=== PATIENT | male | born 1935 | race American Indian/Alaskan Native ===

== ENCOUNTER 2017-06-26 06:32 | Inpatient (IN) | payer MEDICAID, MEDICARE ==
--- NOTE | 2017-06-26 07:12 | EDM.PDOC ---
ED HPI GENERAL MEDICAL PROBLEM - General Chief Complaint: Respiratory Problem Stated Complaint: [facility] Time Seen by Provider: 06/26/17 07:11 Source of Information: Reports: Patient History Limitations: Reports: No Limitations - History of Present Illness INITIAL COMMENTS - FREE TEXT/NARRATIVE: 82-year-old male presents to the ED per [place] [facility]. 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 At any rate he is steadily febrile with a very congested cough and presented hypoxic with O2 sats in the low 80s. He's been up most of the night. Apparently illness started yesterday with cough and fever. He is chronically anticoagulated because of atrial fibrillation. Rate appears to be controlled in the 60s. Was given albuterol neb treatment by the paramedics en route to the hospital and reports that this did seem to help his breathing and good deal. Onset: Gradual Onset Date: 06/25/17 Duration: Hour(s): Location: Reports: Chest (Chest congestion with fever and hypoxemia.) Quality: Reports: Other Severity: Moderate (Productive sounding cough) Improves with: Reports: Other (Was started on oxygen en route to the hospital but remained only on 89% on 2 L. Bumped to 3 L.) Worsens with: Reports: Breathing, Other Context: Denies: Activity, Exercise (Coughing.), Lifting, Sick Contact, Trauma, Other Associated Symptoms: Reports: Cough, cough w sputum, Fever/Chills, Loss of Appetite, Malaise, Shortness of Breath, Weakness. Denies: Diaphoresis, Headaches, Nausea/Vomiting, Seizure Treatments NEEDLE LOOM OPERATOR: Reports: Other (see below) Other Treatments NEEDLE LOOM OPERATOR: albuterol neb - Related Data Allergies Allergy/AdvReac Type Severity Reaction Status Date / Time No Known Allergies Allergy Verified 06/26/17 06:41 Home Meds: Home Meds Lisinopril 20 mg PO BID 06/15/14 [History] Pravastatin [Pravachol] 80 mg PO BEDTIME 06/15/14 [History] Sertraline [Zoloft] 50 mg PO DAILY 06/15/14 [History] Hydrochlorothiazide 25 mg PO DAILY 12/18/15 [History] Aspirin [Aris Chewable Aspirin] 325 mg PO DAILY #30 tab.chew 12/26/15 [Rx] Carvedilol [Coreg] 3.125 mg PO BID #60 tablet 12/26/15 [Rx] Furosemide [Lasix] 10 mg PO DAILY #30 tablet 12/26/15 [Rx] Apixaban [Eliquis] 2.5 mg PO BID 06/26/17 [History] Warfarin Sodium [Jantoven] 3 mg PO MOWEFR 06/26/17 [History] Warfarin [Coumadin] 2 mg PO SUTUTHSA 06/26/17 [History] amLODIPine [Norvasc] 10 mg PO DAILY 06/26/17 [History] Past Medical History HEENT History: Reports: Impaired Vision, Other (See Below) Other HEENT History: dry eyes Cardiovascular History: Reports: Afib, Heart Failure, High Cholesterol, Hypertension, Other (See Below) Other Cardiovascular History: cardiomegaly, bradycardia Respiratory History: Reports: Other (See Below) Other Respiratory History: positive TB reactor Gastrointestinal History: Reports: Chronic Constipation, Fecal Incontinence Other Gastrointestinal History: used laxitives and was incontinent per Genitourinary History: Reports: Chronic Renal Insuffiency, Retention, Urinary, Urinary Incontinence Other Genitourinary History: ? 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 TB 50+ years ago - Past Surgical History Neurological Surgical History: Reports: Other (See Below) Social & Family History - Family History Family Medical History: Noncontributory - Tobacco Use Smoking Status *Q: Never Smoker Second Hand Smoke Exposure: No - Alcohol Use Days Per Week of Alcohol Use: 0 - Recreational Drug Use Recreational Drug Use: No - Living Situation & Occupation Living situation: Reports: Extended Care Facility Occupation: Retired (Currently residing in [place]) Social History Comment: Currently resides at [facility] with [facility] in [place]. ED ROS GENERAL - Review of Systems Review Of Systems: Unable To Obtain (Unable to obtain with any degree of certainty due to his severe dysarthria secondary to CVA.) Constitutional: Reports: Fever, Chills, Malaise, Weakness, Fatigue ED EXAM, GENERAL - Physical Exam Exam: See Below Exam Limited By: Physical Impairment (Dysarthria secondary to speech impairment after CVA.) General Appearance: Alert, Other (Appears ill and is very warm to palpation.) Eye Exam: Bilateral Eye: Normal Inspection Ears: Normal TMs Throat/Mouth: Other. No: Normal Teeth Head: Atraumatic, Normocephalic Neck: Normal Inspection, Supple, Non-Tender, Full Range of Motion. No: Lymphadenopathy (L), Lymphadenopathy (R) Respiratory/Chest: Respiratory Distress (Moderate tachypnea at rest 20/m. O2 sats of 89% on 2 L. Oxygen was bumped to 3 L/m.), Decreased Breath Sounds ( Decreased breath sounds to the lower 25% of lungs posteriorly.), Rhonchi, Wheezing (Throughout both anterior lungs and posteriorly. Scattered expiratory wheezes.) Cardiovascular: No Gallop (Monitor confirms atrial fibrillation in the 60s primarily.), Irregularly Irregular, Other (Trace edema in lower extremities.). No: Normal Peripheral Pulses Peripheral Pulses: 1+: Posterior Tibial (L), Posterior Tibial (R), Dorsalis Pedis (L), Dorsalis Pedis (R) GI/Abdominal: Normal Bowel Sounds, Soft, Non-Tender, No Organomegaly, No Abnormal Bruit, No Mass Back Exam: Normal Inspection, Decreased Range of Motion (Requires a lot of help just to sit him up.). No: CVA Tenderness (L), CVA Tenderness (R) Extremities: Non-Tender, Pedal Edema Neurological: Alert (1+ pitting edema both lower extremities), Oriented, CN II- XII Intact, Normal Cognition Skin Exam: Warm, Dry, Intact, Normal Color, No Rash Course - Vital Signs Last Recorded V/S: Last Vital Signs Temp 37.8 C 06/26/17 08:57 Pulse 51 L 06/26/17 06:42 Resp 16 06/26/17 06:42 BP 133/50 L 06/26/17 06:42 Pulse Ox 95 06/26/17 07:58 - Orders/Labs/Meds Orders: Active Orders 24 hr Category Date Time Status Admission Status [Patient Status] [ADT] Routine ADT 06/26/17 09:45 Ordered EKG Documentation Completion [RC] STAT Care 06/26/17 06:54 Active Insert Patterson Catheter [Insert Urinary Catheter] [OM.PC] Care 06/26/17 08:45 Ordered Q24H Oxygen Therapy [RC] ASDIRECTED Care 06/26/17 07:11 Active RT Aerosol Therapy [RC] ASDIRECTED Care 06/26/17 07:35 Active Urinary Catheter Assessment [RC] ASDIRECTED Care 06/26/17 08:45 Active Chest 1V Frontal [CR] Stat Exams 06/26/17 06:55 Taken CULTURE BLOOD [BC] Stat Lab 06/26/17 07:30 Received CULTURE BLOOD [BC] Stat Lab 06/26/17 07:55 Received INFLUENZA A+B AG SCREEN [RM] Stat Lab 06/26/17 09:00 Received Blood Culture x2 Reflex Set [OM.PC] Stat Oth 06/26/17 06:54 Ordered Labs: Laboratory Tests 06/26/17 06/26/17 06/26/17 Range/Units 06:54 07:05 07:05 WBC 12.42 H (4.23-9.07) K/mm3 RBC 3.59 L (4.63-6.08) M/mm3 Hgb 11.0 L (13.7-17.5) gm/L Hct 33.9 L (40.1-51.0) % MCV 94.4 H (79.0-92.2) fl MCH 30.6 (25.7-32.2) pg MCHC 32.4 (32.2-35.5) g/dl RDW Std Deviation 45.9 H (35.1-43.9) fL Plt Count 289 (163-337) K/mm3 MPV 10.2 (9.4-12.3) fl Neutrophils % (Manual) 80 H (40-60) % Band Neutrophils % 0 (0-10) % Lymphocytes % (Manual) 15 L (20-40) % Atypical Lymphs % 0 % Monocytes % (Manual) 2 (2-10) % Eosinophils % (Manual) 3 (0.8-7.0) % Basophils % (Manual) 0 L (0.2-1.2) Platelet Estimate Adequate RBC Morph Comment Normal PT 11.4 (8.0-13.0) SECONDS INR 1.04 APTT 33 (22-36) SECONDS D-Dimer, Quantitative 1.29 H (0.19-0.59) mg/L Puncture Site Lt radial ABG pH 7.37 (7.35-7.45) ABG pCO2 41.7 (35.0-45.0) mmHg ABG pO2 65.0 L (80.0-100.0) mmHg ABG HCO3 23.3 (22.0-26.0) meq/L ABG O2 Saturation 92.3 L (96.0-97.0) % ABG Base Excess -1.5 (-2-2.0) A-a Gradient 62 mmHg O2 Delivery Device Nasal cannula Oxygen Flow Rate 3.0 FiO2 28.00 (21.00-100.00) % Sodium (136-145) mEq/L Potassium (3.5-5.1) mEq/L Chloride (98-107) mEq/L Carbon Dioxide (21-32) mEq/L Anion Gap (5-15) BUN (7-18) mg/dL Creatinine (0.7-1.3) mg/dL Est Cr Clr Drug Dosing Estimated GFR (MDRD) (>60) mL/min BUN/Creatinine Ratio (14-18) Glucose (83-115) mg/dL Lactic Acid (0.4-2.0) mmol/L Calcium (8.5-10.1) mg/dL Magnesium (1.8-2.4) mg/dl Total Bilirubin (0.2-1.0) mg/dL AST (15-37) U/L ALT (16-63) U/L Alkaline Phosphatase (46-116) U/L Troponin I (0.00-0.056) ng/mL NT-Pro-B Natriuret Pep (0-450) pg/mL Total Protein (6.4-8.2) g/dl Albumin (3.4-5.0) g/dl Globulin gm/dL Albumin/Globulin Ratio (1-2) Urine Color (Yellow) Urine Appearance (Clear) Urine pH (5.0-8.0) Ur Specific Bill[place] (1.005-1.030) Urine Protein (Negative) Urine Glucose (UA) (Negative) Urine Ketones (Negative) Urine Occult Blood (Negative) Urine Nitrite (Negative) Urine Bilirubin (Negative) Urine Urobilinogen (0.2-1.0) Ur Leukocyte Esterase (Negative) Urine RBC (0-5) /hpf Urine WBC (0-5) /hpf Ur Epithelial Cells (0-5) /hpf Urine Bacteria (FEW) /hpf Urine Mucus (FEW) /hpf 11/10/17 11/10/17 11/10/17 Range/Units 07:05 07:05 07:55 WBC (4.23-9.07) K/mm3 RBC (4.63-6.08) M/mm3 Hgb (13.7-17.5) gm/L Hct (40.1-51.0) % MCV (79.0-92.2) fl MCH (25.7-32.2) pg MCHC (32.2-35.5) g/dl RDW Std Deviation (35.1-43.9) fL Plt Count (163-337) K/mm3 MPV (9.4-12.3) fl Neutrophils % (Manual) (40-60) % Band Neutrophils % (0-10) % Lymphocytes % (Manual) (20-40) % Atypical Lymphs % % Monocytes % (Manual) (2-10) % Eosinophils % (Manual) (0.8-7.0) % Basophils % (Manual) (0.2-1.2) Platelet Estimate RBC Morph Comment PT (8.0-13.0) SECONDS INR APTT (22-36) SECONDS D-Dimer, Quantitative (0.19-0.59) mg/L Puncture Site ABG pH (7.35-7.45) ABG pCO2 (35.0-45.0) mmHg ABG pO2 (80.0-100.0) mmHg ABG HCO3 (22.0-26.0) meq/L ABG O2 Saturation (96.0-97.0) % ABG Base Excess (-2-2.0) A-a Gradient mmHg O2 Delivery Device Oxygen Flow Rate FiO2 (21.00-100.00) % Sodium 146 H (136-145) mEq/L Potassium 3.8 (3.5-5.1) mEq/L Chloride 111 H (98-107) mEq/L Carbon Dioxide 27 (21-32) mEq/L Anion Gap 11.8 (5-15) BUN 31 H (7-18) mg/dL Creatinine 1.4 H (0.7-1.3) mg/dL Est Cr Clr Drug Dosing TNP Estimated GFR (MDRD) 49 (>60) mL/min BUN/Creatinine Ratio 22.1 H (14-18) Glucose 106 (83-115) mg/dL Lactic Acid 1.1 (0.4-2.0) mmol/L Calcium 8.6 (8.5-10.1) mg/dL Magnesium 1.8 (1.8-2.4) mg/dl Total Bilirubin 0.5 (0.2-1.0) mg/dL AST 26 (15-37) U/L ALT 30 (16-63) U/L Alkaline Phosphatase 62 (46-116) U/L Troponin I 0.934 H* (0.00-0.056) ng/mL NT-Pro-B Natriuret Pep 1857 H (0-450) pg/mL Total Protein 7.2 (6.4-8.2) g/dl Albumin 2.7 L (3.4-5.0) g/dl Globulin 4.5 gm/dL Albumin/Globulin Ratio 0.6 L (1-2) Urine Color (Yellow) Urine Appearance (Clear) Urine pH (5.0-8.0) Ur Specific [place] (1.005-1.030) Urine Protein (Negative) Urine Glucose (UA) (Negative) Urine Ketones (Negative) Urine Occult Blood (Negative) Urine Nitrite (Negative) Urine Bilirubin (Negative) Urine Urobilinogen (0.2-1.0) Ur Leukocyte Esterase (Negative) Urine RBC (0-5) /hpf Urine WBC (0-5) /hpf Ur Epithelial Cells (0-5) /hpf Urine Bacteria (FEW) /hpf Urine Mucus (FEW) /hpf 06/26/17 Range/Units 08:50 WBC (4.23-9.07) K/mm3 RBC (4.63-6.08) M/mm3 Hgb (13.7-17.5) gm/L Hct (40.1-51.0) % MCV (79.0-92.2) fl MCH (25.7-32.2) pg MCHC (32.2-35.5) g/dl RDW Std Deviation (35.1-43.9) fL Plt Count (163-337) K/mm3 MPV (9.4-12.3) fl Neutrophils % (Manual) (40-60) % Band Neutrophils % (0-10) % Lymphocytes % (Manual) (20-40) % Atypical Lymphs % % Monocytes % (Manual) (2-10) % Eosinophils % (Manual) (0.8-7.0) % Basophils % (Manual) (0.2-1.2) Platelet Estimate RBC Morph Comment PT (8.0-13.0) SECONDS INR APTT (22-36) SECONDS D-Dimer, Quantitative (0.19-0.59) mg/L Puncture Site ABG pH (7.35-7.45) ABG pCO2 (35.0-45.0) mmHg ABG pO2 (80.0-100.0) mmHg ABG HCO3 (22.0-26.0) meq/L ABG O2 Saturation (96.0-97.0) % ABG Base Excess (-2-2.0) A-a Gradient mmHg O2 Delivery Device Oxygen Flow Rate FiO2 (21.00-100.00) % Sodium (136-145) mEq/L Potassium (3.5-5.1) mEq/L Chloride (98-107) mEq/L Carbon Dioxide (21-32) mEq/L Anion Gap (5-15) BUN (7-18) mg/dL Creatinine (0.7-1.3) mg/dL Est Cr Clr Drug Dosing Estimated GFR (MDRD) (>60) mL/min BUN/Creatinine Ratio (14-18) Glucose (83-115) mg/dL Lactic Acid (0.4-2.0) mmol/L Calcium (8.5-10.1) mg/dL Magnesium (1.8-2.4) mg/dl Total Bilirubin (0.2-1.0) mg/dL AST (15-37) U/L ALT (16-63) U/L Alkaline Phosphatase (46-116) U/L Troponin I (0.00-0.056) ng/mL NT-Pro-B Natriuret Pep (0-450) pg/mL Total Protein (6.4-8.2) g/dl Albumin (3.4-5.0) g/dl Globulin gm/dL Albumin/Globulin Ratio (1-2) Urine Color Yellow (Yellow) Urine Appearance Clear (Clear) Urine pH 5.5 (5.0-8.0) Ur Specific Bill[place] 1.020 (1.005-1.030) Urine Protein 1+ H (Negative) Urine Glucose (UA) Negative (Negative) Urine Ketones Negative (Negative) Urine Occult Blood Negative (Negative) Urine Nitrite Negative (Negative) Urine Bilirubin Negative (Negative) Urine Urobilinogen 0.2 (0.2-1.0) Ur Leukocyte Esterase Negative (Negative) Urine RBC 0-5 (0-5) /hpf Urine WBC 0-5 (0-5) /hpf Ur Epithelial Cells 0-5 (0-5) /hpf Urine Bacteria Few (FEW) /hpf Urine Mucus Not seen (FEW) /hpf Meds: Medications Discontinued Medications Generic Name Dose Route Start Last Admin Trade Name Feliciano PRN Reason Stop Dose Admin Acetaminophen 975 mg 06/26/17 07:15 06/26/17 08:57 Tylenol PO 06/26/17 07:16 975 mg NOW STA Administration Albuterol/Ipratropium 3 ml 06/26/17 07:34 06/26/17 07:56 Duoneb 3.0-0.5 Mg/3 Ml NEB 06/26/17 07:35 3 ml ONETIME ONE Administration Furosemide 40 mg 06/26/17 08:19 06/26/17 08:40 Lasix IVPUSH 06/26/17 08:20 40 mg NOW ONE Administration Levofloxacin/Dextrose 750 mg/ 150 mls @ 100 mls/hr 06/26/17 07:40 06/26/17 08 :44 Premix IV 06/26/17 09:09 100 mls/hr ONETIME ONE Administration - Radiology Interpretation Free Text/Narrative:: 82-year-old male presents to the ED per ambulance from [facility]. Acute onset of fever chills with productive cough apparently over the last 2 days. O2 sats were 82% upon arrival. He is prone to 3 L/m. ABGs revealed a pH of 7.37 with a PCO2 of 41.7 PO2 was less than 65. Plan 1 view chest x-ray portably. "2 bumped to 3 L/m. Labs including blood cultures 2 and lactic acid ordered. Suspect pneumonia. We'll start antibiotics as soon as blood cultures 2 been collected. Will repeat nebulizer treatment by way of DuoNeb. - Re-Assessments/Exams Free Text/Narrative Re-Assessment/Exam: 06/26/17 08:11 portable chest x-ray reveals severe cardiomegaly with diffuse vascular congestion bilaterally. Lab also called over with critical value of a troponin of 0.966. This indicates recent myocardial infarction. His CODE STATUS is DO NOT RESUSCITATE. 06/26/17 08:28 Labs are back. White count is elevated at 12.42 with a left shift of 80% neutrophils and no bands. Hemoglobin is slightly low at 11.0 with hematocrit of 33.9. Platelets 289,000. ABGs revealed a pH of 7.37 with a PCO2 of 41.7 PaO2 of 65 bicarbonate is 23.3 this was on nasal cannula at 3 L/m. Sodium 146 potassium 3.8 chloride 111 bicarbonate 27. Anion gap is 11.8 BUNs 31 creatinine is 1.4 EGFR is 49. Glucose 106 calcium 8.6 magnesium 1.8. Troponin I is elevated at 0.934 suggesting recent myocardial infarction. BNP is elevated at 1857. His CODE STATUS is DO NOT RESUSCITATE. I will give Lasix 40 mg IV at this time. Awaiting urinalysis. 06/26/17 08:39 lactic acid level came back at 1.1. Coags also came back essentially normal with an INR 1.04 suggesting is no longer on Coumadin. His d- dimer is mildly positive at 1.29. Likely elevated due to congestive heart failure. Patient will require admission to the hospital. I'm awaiting a urinalysis to define if this is the source of fever. 06/26/17 08:46 Mr. Hollis reports current temperature is 101.4. She is not yet collected urine by catheterization. 06/26/17 09:30 urinalysis so far is negative. It was obtained by catheterization. Therefore the source of his febrile illness is unclear it may be related to recent myocardial infarction. I will discuss case with oncology nurse navigator hospitalist Dr. Whitten with a view to admission to the hospital for management. Unfortunately the prognosis is extremely guarded due to what appears to be a recent myocardial infarction with congestive heart failure. His CODE STATUS is DO NOT RESUSCITATE. 06/26/17 09:46 spoke with oncology nurse navigator hospitalist Dr. Jasso who has now taken over for Dr. Whitten this morning. Patient will be admitted to the med surgery floor on telemetry. Departure - Departure Time of Disposition: 09:47 Disposition: Admitted As Inpatient 66 Condition: Critical Clinical Impression: Elevated troponin I level, NSTEMI (non-ST elevated myocardial infarction), Hypoxemia, Fever of unknown origin CHF (congestive heart failure), NYHA class III Qualifiers: Congestive heart failure type: diastolic Congestive heart failure chronicity: acute on chronic Qualified Code(s): I50.33 - Acute on chronic diastolic ( congestive) heart failure - Discharge Information Referrals: Joesph Kaba MD [Primary Care Provider] - Forms: ED Department Discharge - My Orders Last 24 Hours: My Active Orders 06/26/17 07:11 Oxygen Therapy [RC] ASDIRECTED 06/26/17 07:35 RT Aerosol Therapy [RC] ASDIRECTED 06/26/17 08:45 Insert Patterson Catheter [Insert Urinary Catheter] [OM.PC] Q24H Urinary Catheter Assessment [RC] ASDIRECTED 06/26/17 09:00 INFLUENZA A+B AG SCREEN [RM] Stat 06/26/17 09:45 Admission Status [Patient Status] [ADT] Routine - Assessment/Plan Last 24 Hours: My Active Orders 06/26/17 07:11 Oxygen Therapy [RC] ASDIRECTED 06/26/17 07:35 RT Aerosol Therapy [RC] ASDIRECTED 06/26/17 08:45 Insert Patterson Catheter [Insert Urinary Catheter] [OM.PC] Q24H Urinary Catheter Assessment [RC] ASDIRECTED 06/26/17 09:00 INFLUENZA A+B AG SCREEN [RM] Stat 06/26/17 09:45 Admission Status [Patient Status] [ADT] Routine
[2017-06-26] MEDS ORDERED: Acetaminophen 325 MG Tab PO STA (07:15)
[2017-06-26] MEDS ORDERED: Albuterol/Ipratropium 3.0-0.5 MG/3 ML Neb Soln NEB ONE (07:34)
[2017-06-26] MEDS ORDERED: Levofloxacin/Dextrose 5%-Water 750 MG in Premix Bag 1 BAG IV ONE (07:40)
[2017-06-26] MEDS ORDERED: Furosemide 40 MG/4 ML VIAL IVPUSH ONE (08:19)
--- NOTE | 2017-06-26 10:16 | CR ---
Chest: Portable view of the chest was obtained. Comparison: Prior chest x-ray of 09/29/16. Heart is mildly enlarged. Mild tortuosity of the thoracic aorta is seen. Lungs are clear. Bony structures are grossly intact. Impression: 1. Mild cardiomegaly. Nothing acute is seen. Diagnostic code #2
--- NOTE | 2017-06-26 15:35 | PCM.HP ---
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 He has marked dysarthria from prior stroke is very difficult to understand. He has been febrile with a congested cough. O2 sats on presentation were in the low 80s. His reported symptoms started yesterday with cough and fever. He is on chronic anticoagulants because of A. fib. Rate appears to be controlled in the 60s. He was provided oxygen and a DuoNeb in route by paramedics. It is reported he started at 2 L with sats only at 89% and was bumped to 3 L. Once in the ED oxygen was continued. Patterson catheter was inserted and it is noted there was some question with urinary retention per discussion with the . Twelve-lead EKG was obtained showing A. fib with a rate of 48-62 bpm. Nonspecific IVCD with LAD. Near Q waves noted in 2 and aVF. Q waves noted in leads 3 T-wave flattening noted in V6 and inverted T-wave in lead 2 and aVL. QTC is 458. Blood cultures were obtained. Influenza A and B screen was obtained and both were negative. DuoNebs were continued. Temperature was reported to be near 101. Pulse was 51. Respirations 16. Blood pressure 133/ 50. Pulse ox 95%. Labs were obtained: He did have a white count at 12.42. Hemoglobin was low at 11 and hematocrit was low at 33.9. He was macrocytic. Platelets were normal at 289,000. Neutrophils were elevated at 80%. There was no bandemia. PT was 11.4. INR 1.04. APTT 33. D-dimer was elevated at 1.29 however this is thought to be the result of his heart failure. ABG was obtained of the left radial. PH was 7.37. PCO2 41.7. PO2 low at 65. Bicarbonate 23.3. O2 saturation low at 92.3. ABG base excess -1.5. A-a gradient was 62. This is on 3 L via nasal cannula. FiO2 was 28. Sodium was slightly elevated at 146. Potassium 3.8. Chloride 111. Carbon dioxide 27. Anion gap 11.8. BUN elevated at 31. Creatinine 1.4. EGFR 49. Glucose was 106. Lactic acid 1.1. Calcium 8.6. Magnesium on the low end of normal at 1.8. Total bilirubin 0.5. Liver enzymes are good with AST at 26, ALT 30, alkaline phosphatase 62. Troponin was elevated at 0.934. ProBNP elevated at 1857. Albumin was low at 2.7. UA was negative. One view chest x-ray was obtained portably. This was interpreted by Dr. Knight as mild cardiomegaly with nothing acute seen. He subsequently admitted to the medical floor on telemetry. CODE STATUS is DNR/ DNI. His primary care provider is Dr. Kaba at [facility]. - Related Data Allergies/Adverse Reactions: Allergies Allergy/AdvReac Type Severity Reaction Status Date / Time No Known Allergies Allergy Verified 06/26/17 06:41 Home Medications: Home Meds Lisinopril 20 mg PO DAILY 06/15/14 [History] Sertraline [Zoloft] 50 mg PO DAILY 06/15/14 [History] Apixaban [Eliquis] 2.5 mg PO BID 06/26/17 [History] Aspirin [Aris Chewable Aspirin] 81 mg PO DAILY 06/26/17 [History] Dextran 70/Hypromellose [Artificial Tears] 1 drop EYEBOTH TID 06/26/17 [History] Furosemide [Lasix] 20 mg PO DAILY 06/26/17 [History] Pravastatin Sodium 80 mg PO BEDTIME 06/26/17 [History] Sennosides [Senna] 8.6 mg PO BID 06/26/17 [History] amLODIPine [Norvasc] 10 mg PO DAILY 06/26/17 [History] Past Medical History HEENT History: Reports: Impaired Vision, Other (See Below) Other HEENT History: dry eyes Cardiovascular History: Reports: Afib, Heart Failure, High Cholesterol, Hypertension, Other (See Below) Other Cardiovascular History: cardiomegaly, bradycardia Respiratory History: Reports: Other (See Below) Other Respiratory History: positive TB reactor Gastrointestinal History: Reports: Chronic Constipation, Fecal Incontinence Other Gastrointestinal History: used laxitives and was incontinent per Genitourinary History: Reports: Chronic Renal Insuffiency, Retention, Urinary, Urinary Incontinence Other Genitourinary History: ? 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 TB 50+ years ago - Past Surgical History Neurological Surgical History: Reports: Other (See Below) Social & Family History - Family History Family Medical History: Noncontributory - Tobacco Use Smoking Status *Q: Never Smoker Second Hand Smoke Exposure: No - Alcohol Use Days Per Week of Alcohol Use: 0 - Recreational Drug Use Recreational Drug Use: No - Living Situation & Occupation Living situation: Reports: Extended Care Facility Occupation: Retired (Currently residing in [place]) H&P Review of Systems - Review of Systems: Review Of Systems: See Below General: Reports: Fever, Chills, Malaise, Weakness, Fatigue HEENT: Reports: Sinus Congestion. Denies: Sore Throat, Vertigo Pulmonary: Reports: Shortness of Breath, Cough, Sputum Cardiovascular: Denies: Chest Pain, Palpitations, Edema Gastrointestinal: Reports: Constipation (chronic ). Denies: Abdominal Pain, Diarrhea, Nausea, Vomiting Genitourinary: Reports: No Symptoms Musculoskeletal: Reports: No Symptoms, Other (Hemiparesis with right side being unusable) Skin: Reports: No Symptoms Psychiatric: Reports: No Symptoms Neurological: Reports: No Symptoms Hematologic/Lymphatic: Reports: No Symptoms Immunologic: Reports: No Symptoms Review of Systems Comment:: Review of systems was very difficult to obtain due to dysarthria secondary to CVA. His did assist with this. Exam - Exam Exam: See Below - Vital Signs Vital Signs: Last Vital Signs Temp 100.0 F 06/26/17 08:57 Pulse 51 L 06/26/17 06:42 Resp 16 06/26/17 06:42 BP 133/50 L 06/26/17 06:42 Pulse Ox 95 06/26/17 07:58 Weight: 221 lb - Exam Quality Assessment: Supplemental Oxygen, DVT Prophylaxis General: Alert, Oriented, Cooperative. No: Mild Distress HEENT: Conjunctiva Clear, EACs Clear, Hearing Intact, Mucosa Moist & [place], Nares Patent, Posterior Pharynx Clear, Pupils Equal, Pupils Reactive Neck: Supple, Trachea Midline. No: Lymphadenopathy, Carotid Bruit, JVD Lungs: Normal Respiratory Effort, Decreased Breath Sounds, Rhonchi, Wheezing ( scattered ) Cardiovascular: Regular Rate, Irregular Rhythm GI/Abdominal Exam: Normal Bowel Sounds, Soft, Non-Tender, No Organomegaly, No Distention, No Abnormal Bruit, No Mass, Pelvis Stable (Male) Exam: Deferred Rectal (Males) Exam: Deferred Back Exam: Normal Inspection, Decreased Range of Motion, Other (leans to right side while sitting up. ) Extremities: Non-Tender, Pedal Edema (1+), Other (Right leg paralysis) Peripheral Pulses: 1+: Radial (L), Radial (R), Posterior Tibial (L), Posterior Tibial (R), Dorsalis Pedis (L), Dorsalis Pedis (R) Skin: Warm, Dry, Intact Neurological: Cranial Nerves Intact (Grossly) Neuro Extensive - Mental Status: Alert, Oriented x3 Neuro Extensive - Motor, Sensory, Reflexes: CN II-XII Intact (Grossly), Abnormal Gait Psychiatric: Alert - Patient Data Result Diagrams: 06/26/17 07:05 06/26/17 07:05 *Q Meaningful Use (ADM) - VTE *Q VTE Criteria *Q: - Stroke *Q Stroke Criteria *Q: - AMI *Q AMI Criteria *Q: - Problem List (1) Fever of unknown origin SNOMED Code(s): 1514048 ICD Code: R50.9 - FEVER, UNSPECIFIED Status: Acute Priority: High Current Visit: Yes (2) CHF (congestive heart failure), NYHA class III SNOMED Code(s): 823521739 ICD Code: I50.9 - HEART FAILURE, UNSPECIFIED Status: Acute Priority: High Current Visit: Yes Qualifiers: Congestive heart failure type: diastolic Congestive heart failure chronicity: acute on chronic Qualified Code(s): I50.33 - Acute on chronic diastolic (congestive) heart failure (3) Elevated d-dimer SNOMED Code(s): 699799739 ICD Code: R79.89 - OTHER SPECIFIED ABNORMAL FINDINGS OF BLOOD CHEMISTRY Status: Acute Priority: High Current Visit: Yes (4) Elevated troponin I level SNOMED Code(s): 566903047 ICD Code: R74.8 - ABNORMAL LEVELS OF OTHER SERUM ENZYMES Status: Chronic Priority: Medium Current Visit: Yes (5) History of CVA with residual deficit SNOMED Code(s): 658210677 ICD Code: I69.30 - UNSPECIFIED SEQUELAE OF CEREBRAL INFARCTION Status: Chronic Priority: Medium Current Visit: Yes (6) History of hemiparesis SNOMED Code(s): 849906594 ICD Code: Z86.69 - PERSONAL HISTORY OF DIS OF THE NERVOUS SYS AND SENSE ORGANS Status: Chronic Priority: Medium Current Visit: Yes (7) History of thrombocytopenia SNOMED Code(s): 722495064 ICD Code: Z86.2 - PRSNL HISTORY OF DIS OF THE BLD/BLD-FORM ORG/IMMUN MECHNSM Status: Chronic Priority: Low Current Visit: Yes (8) CKD (chronic kidney disease) stage 3, GFR 30-59 ml/min SNOMED Code(s): 725293710 ICD Code: N18.3 - CHRONIC KIDNEY DISEASE, STAGE 3 (MODERATE) Status: Chronic Priority: Medium Current Visit: Yes (9) Hypoxemia SNOMED Code(s): 626221106 ICD Code: R09.02 - HYPOXEMIA Status: Acute Current Visit: Yes (10) Atrial fibrillation SNOMED Code(s): 41910609 ICD Code: I48.91 - UNSPECIFIED ATRIAL FIBRILLATION Status: Chronic Priority: Medium Current Visit: Yes Qualifiers: Atrial fibrillation type: chronic Qualified Code(s): I48.2 - Chronic atrial fibrillation (11) Speech and language disorder SNOMED Code(s): 093754960 ICD Code: F80.9 - DEVELOPMENTAL DISORDER OF SPEECH AND LANGUAGE, UNSPECIFIED ; R47.9 - UNSPECIFIED SPEECH DISTURBANCES Status: Chronic Priority: Medium Current Visit: Yes Problem List Initiated/Reviewed/Updated: Yes Orders Last 24hrs: Active Orders 24 hr Category Date Time Status Apixaban Med 06/26/17 21:00 Ordered 2.5 mg PO BID Aspirin Med 06/27/17 09:00 Ordered 81 mg PO DAILY Sertraline [Zoloft] Med 06/27/17 09:00 Ordered 50 mg PO DAILY amLODIPine [Norvasc] Med 06/27/17 09:00 Ordered 10 mg PO DAILY Medication Orders Amlodipine Besylate (Norvasc) 10 mg PO DAILY [facility] Aspirin (Aspirin) 81 mg PO DAILY [facility] Non-Formulary Medication (Apixaban) 2.5 mg PO BID [facility] Sertraline HCl (Zoloft) 50 mg PO DAILY [facility] Assessment/Plan Comment:: I/P: Acute: Fever of unknown origin - Bronchitis vs. early pneumonia -Reportedly up to 101 in ED and at SNF -Hypoxic with oxygen saturations in low 80's at SNF -On 3L O2 in ED. Not on home O2. -Pt. hx/o CVA with hemiparesis - risk factor due to decreased mobility -Urinary incontinent with questions of possible urinary retention -Straight cathed in ED, has had frequent episodes of incontinence here - risk for UTI -UA negative in ED -CXR interpeted by Dr. Knight shows nothing acute. -Cough w sputum -Chest congestion per pt. -Negative influenza A and B in ED -Lactic acid 1.1 -Blood cultures obtained -WBC 12.42 -Neutorphils 80% -No bandemia -Levaquin 750 started in ED will continue 500mg q24hrs -Consider f/u chest x-ray in 24-48 hours depending on symptoms -Duonebs -O2 as ordered -RT evaluate and treat -Sputum culture ordered -Mycoplasma pneumonia ordered Elevated troponin -HR in 40's at times -A-Fib chronically and on Eliquis and ASA -0.934 at 0705 in ED today -Reviewed old chart - hx/o elevated troponins -0.987 on 09/29/16 at 1500 -0.991 on 09/29/16 at 1304 -0.808 on 12/20/15 at 0639 -1.005 on 12/18/15 at 2000 -1.031 on 12/18/15 at 1317 -0.638 on 06/18/17 at 605 -On last visit pt. was transfered to [place] for observation due to elevated trop. and bradycardia with HR in 40's -Patient does not want aggressive treatment, in ED was requesting to return home. States he is ready to . -Will order repeat troponin, CK-MB -Suspect chronic troponin leak from CHF and CKD Elevated D-Dimer -Hx/o A-fib -On Eliquis and ASA -Risk factors: sedimentary due to hemiparesis and A-Fib -PT 11.4 -INR 1.04 -APTT 33 -D-Dimer 1.29 in ED -I discussed this with the patient and his . I explained how this may be due to the patient having a blood clot in his lungs, or it may be a false positive due to his other co-morbid conditions. I explained the testing that would be needed including CT angiogram or VQ scan. The patient states he would not like aggressive treatment and refuses further investigation. His agrees as well. -Suspect elevated D-Dimer due to CHF CHF -Acute on chronic -SOB -Pro-BNP 1857 -40mg lasix given in ed -Patient on 20 mg lasix daily home med -Will hold ACEI and Lasix, give Bumex 0.5mg BID to diuresis -Monitor kidney function -Reports last echo was preformed when he was in [place] earlier this year - attempt to obtain Chronic: CKD, Stage III -Appears stable from prior visits -BUN 31 -Creatinine 1.4 -eGFR 49 -Monitor daily labs as we are attempting to diuresis HTN - stable HLD - hold statin A-fib on Eliquis Bradycardia Cardiomegaly Chronic constipation Fecal incontinence Urinary retention Urinary incontinence Hemiparesis - right side Hx/o CVA with marked dysarthria Depression Vitamin D deficiency Idiopathic Thrombocytopenia Plan: CM/SW for discharge planning PT/OT HAND SPRAYER swallow evaluation Routine AM labs Other orders as indicated above GI prophylaxis - pepcid DVE/PE prophylaxis - RUMA Dunn, Pt. on Eliquis and ASA. He is a high fall risk Code status: DNR/DNI. His PCP is Dr. Kaba at [facility] in [place].
[2017-06-26] MEDS ORDERED: Temazepam 15 MG Cap PO PRN (17:02)
[2017-06-26] MEDS ORDERED: Polyethylene Glycol 3350 Powder 17 GM Packet PO PRN (17:02)
[2017-06-26] MEDS ORDERED: Acetaminophen 325 MG Tab PO PRN (17:02)
[2017-06-26] MEDS ORDERED: Albuterol/Ipratropium 3.0-0.5 MG/3 ML Neb Soln NEB PRN (17:02)
[2017-06-26] MEDS ORDERED: Acetaminophen/HYDROcodone 325-5 MG Tab PO PRN (17:02)
[2017-06-26] MEDS ORDERED: Ondansetron 4 MG Tab.DIS PO PRN (17:02)
[2017-06-26] MEDS ORDERED: Docusate Sodium 100 MG Cap PO PRN (17:02)
[2017-06-26] MEDS ORDERED: Ondansetron 4 MG/2 ML SDV IV PRN (17:02)
[2017-06-26] MEDS: Famotidine 20 MG Tab PO SCH (17:51)
[2017-06-26] MEDS ORDERED: Bumetanide 1 MG/4 ML MDV IVPUSH ONE (18:45)
[2017-06-26] MEDS ORDERED: Bumetanide 1 MG/4 ML MDV IVPUSH SCH (21:00)
[2017-06-26] MEDS: Hypromellose 0.5% Ophth Soln 15 ML Bottle EYEBOTH SCH (21:45)
[2017-06-26] MEDS: Apixaban 5 MG Tab PO SCH (21:45)
--- NOTE | 2017-06-27 07:50 | PCM.PN ---
- General Info Date of Service: 06/27/17 Admission Dx/Problem (Free Text): Admission Diagnosis/Problem Admission Diagnosis/Problem NSTEMI, initial episode of care Subjective Update: Follow Up Functional Status: Reports: Pain Controlled, Tolerating Diet, Ambulating, Urinating. Denies: New Symptoms - Review of Systems General: Denies: Fever, Chills HEENT: Reports: No Symptoms Pulmonary: Denies: Shortness of Breath Cardiovascular: Denies: Chest Pain Gastrointestinal: Denies: Abdominal Pain, Nausea, Vomiting Genitourinary: Reports: No Symptoms Musculoskeletal: Reports: No Symptoms Skin: Reports: Cyanosis Neurological: Reports: Pre-Existing Deficit, Trouble Speaking, Difficulty Walking, Weakness, Gait Disturbance. Denies: Confusion Psychiatric: Denies: Depression, Anxiety, Agitation, Hallucinations Systems Review Comment:: NO significant overnight or acute issues. He feels better this morning. He has no new complaints. However he wants something but hsa difficulty relaying to us. He has baseline dysarthria. - Patient Data Vitals - Most Recent: Last Vital Signs Temp 36.8 C 06/27/17 07:18 Pulse 56 L 06/27/17 07:18 Resp 16 06/27/17 07:18 BP 120/53 L 06/27/17 07:18 Pulse Ox 93 L 06/27/17 07:18 Weight - Most Recent: 102.376 kg I&O - Last 24 Hours: Intake & Output 06/26/17 06/27/17 06/27/17 22:59 06:59 14:59 Intake Total 480 300 Balance 480 300 Lab Results Last 24 Hours: Laboratory Results - last 24 hr 06/26/17 06/26/17 06/27/17 Range/Units 16:07 17:50 06:26 WBC 11.73 H (4.23-9.07) K/mm3 RBC 3.59 L (4.63-6.08) M/mm3 Hgb 10.9 L (13.7-17.5) gm/L Hct 33.8 L (40.1-51.0) % MCV 94.2 H (79.0-92.2) fl MCH 30.4 (25.7-32.2) pg MCHC 32.2 (32.2-35.5) g/dl RDW Std Deviation 45.7 H (35.1-43.9) fL Plt Count 216 (163-337) K/mm3 MPV 10.7 (9.4-12.3) fl Neut % (Auto) 81.3 H (34.0-67.9) % Lymph % (Auto) 9.5 L (21.8-53.1) % [place]ckett % (Auto) 7.8 (5.3-12.2) % Eos % (Auto) 1.0 (0.8-7.0) Baso % (Auto) 0.2 (0.1-1.2) % Neut # (Auto) 9.54 H (1.78-5.38) K/mm3 Lymph # (Auto) 1.12 L (1.32-3.57) K/mm3 [place] # (Auto) 0.91 H (0.30-0.82) K/mm3 Eos # (Auto) 0.12 (0.04-0.54) K/mm3 Baso # (Auto) 0.02 (0.01-0.08) K/mm3 Manual Slide Review Normal smear Sodium (136-145) mEq/L Potassium (3.5-5.1) mEq/L Chloride (98-107) mEq/L Carbon Dioxide (21-32) mEq/L Anion Gap (5-15) BUN (7-18) mg/dL Creatinine (0.7-1.3) mg/dL Est Cr Clr Drug Dosing mL/min Estimated GFR (MDRD) (>60) mL/min BUN/Creatinine Ratio (14-18) Glucose (83-115) mg/dL Calcium (8.5-10.1) mg/dL Magnesium (1.8-2.4) mg/dl CK-MB (CK-2) 1.2 (0-3.6) ng/ml Troponin I 0.904 H* (0.00-0.056) ng/mL NT-Pro-B Natriuret Pep 1778 H (0-450) pg/mL MRSA (PCR) Negative 06/27/17 Range/Units 06:26 WBC (4.23-9.07) K/mm3 RBC (4.63-6.08) M/mm3 Hgb (13.7-17.5) gm/L Hct (40.1-51.0) % MCV (79.0-92.2) fl MCH (25.7-32.2) pg MCHC (32.2-35.5) g/dl RDW Std Deviation (35.1-43.9) fL Plt Count (163-337) K/mm3 MPV (9.4-12.3) fl Neut % (Auto) (34.0-67.9) % Lymph % (Auto) (21.8-53.1) % [place] % (Auto) (5.3-12.2) % Eos % (Auto) (0.8-7.0) Baso % (Auto) (0.1-1.2) % Neut # (Auto) (1.78-5.38) K/mm3 Lymph # (Auto) (1.32-3.57) K/mm3 [place] # (Auto) (0.30-0.82) K/mm3 Eos # (Auto) (0.04-0.54) K/mm3 Baso # (Auto) (0.01-0.08) K/mm3 Manual Slide Review Sodium 145 (136-145) mEq/L Potassium 3.8 (3.5-5.1) mEq/L Chloride 107 (98-107) mEq/L Carbon Dioxide 28 (21-32) mEq/L Anion Gap 13.8 (5-15) BUN 32 H (7-18) mg/dL Creatinine 1.5 H (0.7-1.3) mg/dL Est Cr Clr Drug Dosing 42.91 mL/min Estimated GFR (MDRD) 45 (>60) mL/min BUN/Creatinine Ratio 0.0 L (14-18) Glucose 93 (83-115) mg/dL Calcium 8.5 (8.5-10.1) mg/dL Magnesium 1.6 L (1.8-2.4) mg/dl CK-MB (CK-2) (0-3.6) ng/ml Troponin I (0.00-0.056) ng/mL NT-Pro-B Natriuret Pep (0-450) pg/mL MRSA (PCR) Stewart Results Last 24 Hours: Microbiology 06/26/17 18:40 Gram Stain - Final Sputum - Expectorated Med Orders - Current: Current Medications Acetaminophen (Tylenol) 650 mg PO Q4H PRN PRN Reason: Pain (Mild 1-3)/fever Hydrocodone Bitart/Acetaminophen ([place] 325-5 Mg) 1 tab PO Q4H PRN PRN Reason: Pain (moderate 4-6) Albuterol/Ipratropium (Duoneb 3.0-0.5 Mg/3 Ml) 3 ml NEB Q4H PRN PRN Reason: Shortness Of Breath/wheezing Amlodipine Besylate (Norvasc) 10 mg PO DAILY [facility] Apixaban (Eliquis) 2.5 mg PO BID [facility] Last Admin: 06/26/17 21:45 Dose: 2.5 mg Artificial Tears (Isopto Tears 0.5% Ophth Soln) 0 ml EYEBOTH TID [facility] Last Admin: 06/26/17 21:45 Dose: 1 drop Aspirin (Aspirin) 81 mg PO DAILY [facility] Bumetanide (Bumex) 0.5 mg IVPUSH BID [facility] Docusate Sodium (Colace) 100 mg PO BID PRN PRN Reason: Constipation Famotidine (Pepcid) 20 mg PO DAILY [facility] Last Admin: 06/26/17 17:51 Dose: 20 mg Levofloxacin/Dextrose 500 mg/ (Premix) 100 mls @ 100 mls/hr IV Q24H [facility] Magnesium Hydroxide (Milk Of Magnesia) 30 ml PO Q12H PRN PRN Reason: Constipation Ondansetron HCl (Zofran Odt) 4 mg PO Q6H PRN PRN Reason: nausea, able to take PO Ondansetron HCl (Zofran) 4 mg IV Q6H PRN PRN Reason: Nausea/Vomiting Polyethylene Glycol (Miralax) 17 gm PO DAILY PRN PRN Reason: Constipation Senna/Docusate Sodium (Senna Plus) 1 tab PO BID PRN PRN Reason: Constipation Sertraline HCl (Zoloft) 50 mg PO DAILY [facility] Temazepam (Restoril) 15 mg PO BEDTIME PRN PRN Reason: Sleep Discontinued Medications Acetaminophen (Tylenol) 975 mg PO NOW STA Stop: 06/26/17 07:16 Last Admin: 06/26/17 08:57 Dose: 975 mg Albuterol/Ipratropium (Duoneb 3.0-0.5 Mg/3 Ml) 3 ml NEB ONETIME ONE Stop: 06/26/17 07:35 Last Admin: 06/26/17 07:56 Dose: 3 ml Bumetanide (Bumex) 0.5 mg IVPUSH BID [facility] Bumetanide (Bumex) 0.5 mg IVPUSH ONETIME ONE Stop: 06/26/17 18:46 Last Admin: 06/26/17 21:45 Dose: 0.5 mg Furosemide (Lasix) 40 mg IVPUSH NOW ONE Stop: 06/26/17 08:20 Last Admin: 06/26/17 08:40 Dose: 40 mg Levofloxacin/Dextrose 750 mg/ (Premix) 150 mls @ 100 mls/hr IV ONETIME ONE Stop: 06/26/17 09:09 Last Admin: 06/26/17 08:44 Dose: 100 mls/hr - Exam General: Alert, Oriented, Cooperative, No Acute Distress, Other (Dysarthria) HEENT: Pupils Equal, Pupils Reactive, EOMI, Mucous Membr. Moist/[place] Neck: Supple, Trachea Midline, No JVD Lungs: Normal Respiratory Effort, Decreased Breath Sounds Cardiovascular: Irregular Rhythm GI/Abdominal Exam: Normal Bowel Sounds, Soft, Non-Tender, No Organomegaly, No Distention (Male) Exam: Deferred Back Exam: Normal Inspection, Decreased Range of Motion Extremities: Normal Inspection, Normal Range of Motion, Non-Tender, Pedal Edema Peripheral Pulses: 1+: Dorsalis Pedis (L), Dorsalis Pedis (R) Skin: Warm, Dry, Intact Neurological: No New Focal Deficit. No: Normal Gait, Strength Equal Bilateral, Sensation Intact Psy/Mental Status: Alert, Normal Affect, Normal Mood. No: Anxious, Suicidal Ideation, Hallucinations - Problem List Review Problem List Initiated/Reviewed/Updated: Yes - My Orders Last 24 Hours: My Active Orders 06/26/17 21:00 Hypromellose [Isopto Tears 0.5% Ophth Soln] 0 ml EYEBOTH TID 06/26/17 Dinner Soft Diet [DIET] 06/27/17 07:49 CRP [C-REACTIVE PROTEIN] [CHEM] Urgent 06/28/17 05:11 CRP [C-REACTIVE PROTEIN] [CHEM] AM 06/29/17 05:11 CRP [C-REACTIVE PROTEIN] [CHEM] AM 06/30/17 05:11 CRP [C-REACTIVE PROTEIN] [CHEM] AM 07/01/17 05:11 CRP [C-REACTIVE PROTEIN] [CHEM] AM - Plan Plan:: Assessment/Plan: Acute: Fever likely 2/2 Bronchitis vs. Early Pneumonia - Reportedly up to 101 in ED and at SNF - Hypoxic with oxygen saturations in low 80's at SNF; cough with sputum and chest congestion - On 3L O2 in ED. Not on home O2. - Pt. hx/o CVA with hemiparesis - risk factor due to decreased mobility - Urinary incontinent with questions of possible urinary retention; UA negative - Straight cathed in ED, has had frequent episodes of incontinence here - risk for UTI - CXR interpeted by Dr. Knight shows nothing acute. - Lactic acid 1.1 - WBC 12.42 --> 11.73; CRP 12.3 - Neutorphils 80%; No bandemia - Continue Levaquin 750 mg IV daily, Duonebs, O2 as ordered, and RT evaluate/ treat - Sputum: Gram stain negative, awaiting culture - Mycoplasma pneumonia/Blood Culture and Influenza screening negative Elevated D-Dimer - Hx/o A-fib; On Eliquis and ASA - Risk factors: sedimentary due to hemiparesis and A-Fib - PT 11.4/INR 1.04/APTT 33 - D-Dimer 1.29 in ED - I discussed this with the patient and his . I explained how this may be due to the patient having a blood clot in his lungs, or it may be a false positive due to his other co-morbid conditions. I explained the testing that would be needed including CT angiogram or VQ scan. The patient states he would not like aggressive treatment and refuses further investigation. His agrees as well. - Suspect elevated D-Dimer due to CHF CHF - Acute on chronic; with Preserved EF 57% 12/19/2015-awaiting most recent report from [facility] - SOB - Pro-BNP 1857 --> now 1477 - 40 mg lasix given in ED; resume home dose lasix/acei - Heart healthy diet and 2 Gram Sodium daily restriction - Monitor kidney function Chronic: Elevated Troponin, - This is chronic to him - HR in 40's at times - A-Fib chronically and on Eliquis and ASA - 0.934 at 0705 in ED today - Reviewed old chart - hx/o elevated troponins -0.987 on 09/29/16 at 1500 -0.991 on 09/29/16 at 1304 -0.808 on 12/20/15 at 0639 -1.005 on 12/18/15 at 2000 -1.031 on 12/18/15 at 1317 -0.638 on 06/18/17 at 605 - On last visit pt. was transfered to [place] for observation due to elevated trop. and bradycardia with HR in 40's - Patient does not want aggressive treatment, in ED was requesting to return home. States he is ready to . - Will order repeat troponin, CK-MB - Suspect chronic troponin leak from CHF and CKD CKD, Stage III, At baseline - Appears stable from prior visits - BUN 31 - Creatinine 1.4 - eGFR 49 - Monitor daily labs as we are attempting to diuresis HTN - stable HLD - hold statin A-fib on Eliquis Bradycardia Cardiomegaly Chronic constipation Fecal incontinence Urinary retention Urinary incontinence Hemiparesis - right side Hx/o CVA with marked dysarthria Depression Vitamin D deficiency Idiopathic Thrombocytopenia Plan: He is clinically better this am Continue current treatment Continue PT/OT PRINCIPAL ASSOCIATE swallow evaluation hx/o dysarthria Routine AM labs Other orders as indicated above CM/SW for discharge planning GI prophylaxis: H2B DVE/PE prophylaxis: On Eliquis and ASA He is a high fall risk Code status: DNR/DNI His PCP is Dr. Kaba at [facility] in [place]
[2017-06-27] MEDS ORDERED: Metoprolol Tartrate 5 MG/5 ML SDV IVPUSH PRN (08:36)
[2017-06-27] MEDS ORDERED: hydrALAZINE 20 MG/ML SDV IVPUSH PRN (08:36)
[2017-06-27] MEDS ORDERED: Benzonatate 100 MG Cap PO PRN (08:38)
[2017-06-27] MEDS ORDERED: Bisacodyl 10 MG Supp RECTAL PRN (08:39)
[2017-06-27] MEDS ORDERED: Bumetanide 1 MG/4 ML MDV IVPUSH SCH (09:00)
[2017-06-27] MEDS ORDERED: Magnesium Sulfate/Water 2 GM in Premix Bag 1 BAG IV ONE (09:00)
[2017-06-27] MEDS: amLODIPine 10 MG Tab PO SCH (09:08)
[2017-06-27] MEDS: Magnesium Hydroxide 400 MG/5 ML Susp 30 ML Cup PO PRN (09:08)
[2017-06-27] MEDS: Famotidine 20 MG Tab PO SCH (09:08)
[2017-06-27] MEDS: Apixaban 5 MG Tab PO SCH ×2 (09:08→20:20)
[2017-06-27] MEDS: Aspirin 81 MG Tab.Chew PO SCH (09:08)
[2017-06-27] MEDS: Sertraline 50 MG Tab PO SCH (09:09)
[2017-06-27] MEDS: Hypromellose 0.5% Ophth Soln 15 ML Bottle EYEBOTH SCH ×3 (09:09→20:20)
[2017-06-27] MEDS ORDERED: Levofloxacin/Dextrose 5%-Water 500 MG in Premix Bag 1 BAG IV SCH (10:00)
[2017-06-27] MEDS ORDERED: Levofloxacin/Dextrose 5%-Water 250 MG in Premix Bag 1 BAG IV ONE (12:44)
[2017-06-27] MEDS: Hydrochlorothiazide 12.5 MG Cap PO SCH (20:20)
[2017-06-27] MEDS: Pravastatin Sodium 80 MG PO SCH (20:21)
[2017-06-28] MEDS: Hydrochlorothiazide 12.5 MG Cap PO SCH ×2 (05:48→13:56)
[2017-06-28] MEDS: Magnesium Hydroxide 400 MG/5 ML Susp 30 ML Cup PO PRN (06:47)
--- NOTE | 2017-06-28 07:17 | PCM.PN ---
- General Info Date of Service: 06/28/17 Admission Dx/Problem (Free Text): Admission Diagnosis/Problem Admission Diagnosis/Problem NSTEMI, initial episode of care Subjective Update: Follow Up Functional Status: Reports: Pain Controlled, Tolerating Diet, Urinating. Denies : New Symptoms - Review of Systems General: Reports: Other ([place] hemepareis and dysarthria). Denies: Fever, Chills HEENT: Reports: No Symptoms Pulmonary: Denies: Shortness of Breath Cardiovascular: Denies: Chest Pain Gastrointestinal: Reports: Constipation. Denies: Abdominal Pain, Nausea, Vomiting Genitourinary: Reports: No Symptoms Musculoskeletal: Reports: No Symptoms Skin: Denies: Cyanosis, Pallor, Diaphoresis, Rash Neurological: Reports: Difficulty Walking, Gait Disturbance. Denies: Confusion , Weakness Psychiatric: Denies: Depression, Anxiety, Agitation, Hallucinations Systems Review Comment:: No significant overnight or acute issues. He slept good. He still has not had a bowel movement. His cough is better. He has no new complaints. - Patient Data Vitals - Most Recent: Last Vital Signs Temp 36.9 C 06/27/17 20:11 Pulse 51 L 06/27/17 20:11 Resp 15 06/27/17 20:11 BP 135/54 L 06/27/17 20:11 Pulse Ox 94 L 06/27/17 20:11 Weight - Most Recent: 102.013 kg I&O - Last 24 Hours: Intake & Output 06/27/17 06/28/17 06/28/17 22:59 06:59 14:59 Intake Total 60 600 Balance 60 600 Lab Results Last 24 Hours: Laboratory Results - last 24 hr 06/27/17 06/27/17 06/28/17 Range/Units 06:26 06:26 06:02 WBC 10.60 H (4.23-9.07) K/mm3 RBC 3.69 L (4.63-6.08) M/mm3 Hgb 11.0 L (13.7-17.5) gm/L Hct 34.6 L (40.1-51.0) % MCV 93.8 H (79.0-92.2) fl MCH 29.8 (25.7-32.2) pg MCHC 31.8 L (32.2-35.5) g/dl RDW Std Deviation 45.4 H (35.1-43.9) fL Plt Count 243 (163-337) K/mm3 MPV 10.6 (9.4-12.3) fl Neut % (Auto) 77.7 H (34.0-67.9) % Lymph % (Auto) 11.8 L (21.8-53.1) % [place] % (Auto) 8.6 (5.3-12.2) % Eos % (Auto) 1.5 (0.8-7.0) Baso % (Auto) 0.2 (0.1-1.2) % Neut # (Auto) 8.24 H (1.78-5.38) K/mm3 Lymph # (Auto) 1.25 L (1.32-3.57) K/mm3 [place] # (Auto) 0.91 H (0.30-0.82) K/mm3 Eos # (Auto) 0.16 (0.04-0.54) K/mm3 Baso # (Auto) 0.02 (0.01-0.08) K/mm3 Sodium (136-145) mEq/L Potassium (3.5-5.1) mEq/L Chloride (98-107) mEq/L Carbon Dioxide (21-32) mEq/L Anion Gap (5-15) BUN (7-18) mg/dL Creatinine (0.7-1.3) mg/dL Est Cr Clr Drug Dosing mL/min Estimated GFR (MDRD) (>60) mL/min BUN/Creatinine Ratio (14-18) Glucose (83-115) mg/dL Calcium (8.5-10.1) mg/dL Magnesium (1.8-2.4) mg/dl C-Reactive Protein 12.3 H* (<1.0) mg/dL NT-Pro-B Natriuret Pep 1477 H (0-450) pg/mL 06/28/17 Range/Units 06:02 WBC (4.23-9.07) K/mm3 RBC (4.63-6.08) M/mm3 Hgb (13.7-17.5) gm/L Hct (40.1-51.0) % MCV (79.0-92.2) fl MCH (25.7-32.2) pg MCHC (32.2-35.5) g/dl RDW Std Deviation (35.1-43.9) fL Plt Count (163-337) K/mm3 MPV (9.4-12.3) fl Neut % (Auto) (34.0-67.9) % Lymph % (Auto) (21.8-53.1) % [place] % (Auto) (5.3-12.2) % Eos % (Auto) (0.8-7.0) Baso % (Auto) (0.1-1.2) % Neut # (Auto) (1.78-5.38) K/mm3 Lymph # (Auto) (1.32-3.57) K/mm3 [place] # (Auto) (0.30-0.82) K/mm3 Eos # (Auto) (0.04-0.54) K/mm3 Baso # (Auto) (0.01-0.08) K/mm3 Sodium 144 (136-145) mEq/L Potassium 3.9 (3.5-5.1) mEq/L Chloride 107 (98-107) mEq/L Carbon Dioxide 28 (21-32) mEq/L Anion Gap 12.9 (5-15) BUN 33 H (7-18) mg/dL Creatinine 1.4 H (0.7-1.3) mg/dL Est Cr Clr Drug Dosing 45.97 mL/min Estimated GFR (MDRD) 49 (>60) mL/min BUN/Creatinine Ratio 23.6 H (14-18) Glucose 92 (83-115) mg/dL Calcium 8.8 (8.5-10.1) mg/dL Magnesium 2.2 (1.8-2.4) mg/dl C-Reactive Protein 12.6 H* (<1.0) mg/dL NT-Pro-B Natriuret Pep (0-450) pg/mL [place] Results Last 24 Hours: Microbiology 06/26/17 18:40 Gram Stain - Final Sputum - Expectorated Sputum Culture - Preliminary Med Orders - Current: Current Medications Acetaminophen (Tylenol) 650 mg PO Q4H PRN PRN Reason: Pain (Mild 1-3)/fever Hydrocodone Bitart/Acetaminophen ([place] 325-5 Mg) 1 tab PO Q4H PRN PRN Reason: Pain (moderate 4-6) Albuterol/Ipratropium (Duoneb 3.0-0.5 Mg/3 Ml) 3 ml NEB Q4H PRN PRN Reason: Shortness Of Breath/wheezing Amlodipine Besylate (Norvasc) 10 mg PO DAILY [facility] Last Admin: 06/27/17 09:08 Dose: 10 mg Apixaban (Eliquis) 2.5 mg PO BID [facility] Last Admin: 06/27/17 20:20 Dose: 2.5 mg Artificial Tears (Isopto Tears 0.5% Ophth Soln) 0 ml EYEBOTH TID [facility] Last Admin: 06/27/17 20:20 Dose: 1 drop Aspirin (Aspirin) 81 mg PO DAILY [facility] Last Admin: 06/27/17 09:08 Dose: 81 mg Benzonatate (Tessalon Perles) 100 mg PO TID PRN PRN Reason: Cough Last Admin: 06/27/17 09:08 Dose: 100 mg Bisacodyl (Dulcolax) 10 mg RECTAL DAILY PRN PRN Reason: Constipation Docusate Sodium (Colace) 100 mg PO BID PRN PRN Reason: Constipation Famotidine (Pepcid) 20 mg PO DAILY [facility] Last Admin: 06/27/17 09:08 Dose: 20 mg Furosemide (Lasix) 20 mg PO DAILY [facility] Hydralazine HCl (Apresoline) 10 mg IVPUSH Q4H PRN PRN Reason: Hypertension Hydrochlorothiazide (Hydrochlorothiazide) 12.5 mg PO BIDDIURETIC [facility] Last Admin: 06/28/17 05:48 Dose: 12.5 mg Levofloxacin/Dextrose 750 mg/ (Premix) 150 mls @ 100 mls/hr IV Q24H [facility] Lisinopril (Prinivil) 20 mg PO DAILY [facility] Magnesium Hydroxide (Milk Of Magnesia) 30 ml PO Q12H PRN PRN Reason: Constipation Last Admin: 06/28/17 06:47 Dose: 30 ml Magnesium Sulfate (Pharmacy To Dose - Magnesium Replacement) 0 dose .XX ASDIRECTED PRN PRN Reason: RX TO WATCH MAG LEVELS Metoprolol Tartrate (Lopressor) 5 mg IVPUSH Q4H PRN PRN Reason: Tachycardia Ondansetron HCl (Zofran Odt) 4 mg PO Q6H PRN PRN Reason: nausea, able to take PO Ondansetron HCl (Zofran) 4 mg IV Q6H PRN PRN Reason: Nausea/Vomiting Pravastatin Sodium (80 Mg) 0 each PO BEDTIME [facility] Last Admin: 06/27/17 20:21 Dose: Not Given Polyethylene Glycol (Miralax) 17 gm PO DAILY PRN PRN Reason: Constipation Last Admin: 06/28/17 06:46 Dose: 17 gm Potassium Chloride (Pharmacy To Dose - Potassium Replacement) 0 dose .XX ASDIRECTED PRN PRN Reason: RX TO WATCH K LEVELS Senna/Docusate Sodium (Senna Plus) 1 tab PO BID PRN PRN Reason: Constipation Sertraline HCl (Zoloft) 50 mg PO DAILY [facility] Last Admin: 06/27/17 09:09 Dose: 50 mg Temazepam (Restoril) 15 mg PO BEDTIME PRN PRN Reason: Sleep Discontinued Medications Acetaminophen (Tylenol) 975 mg PO NOW STA Stop: 06/26/17 07:16 Last Admin: 06/26/17 08:57 Dose: 975 mg Albuterol/Ipratropium (Duoneb 3.0-0.5 Mg/3 Ml) 3 ml NEB ONETIME ONE Stop: 06/26/17 07:35 Last Admin: 06/26/17 07:56 Dose: 3 ml Bumetanide (Bumex) 0.5 mg IVPUSH BID [facility] Bumetanide (Bumex) 0.5 mg IVPUSH ONETIME ONE Stop: 06/26/17 18:46 Last Admin: 06/26/17 21:45 Dose: 0.5 mg Bumetanide (Bumex) 0.5 mg IVPUSH BID [facility] Last Admin: 06/27/17 09:13 Dose: 0.5 mg Furosemide (Lasix) 40 mg IVPUSH NOW ONE Stop: 06/26/17 08:20 Last Admin: 06/26/17 08:40 Dose: 40 mg Levofloxacin/Dextrose 750 mg/ (Premix) 150 mls @ 100 mls/hr IV ONETIME ONE Stop: 06/26/17 09:09 Last Admin: 06/26/17 08:44 Dose: 100 mls/hr Levofloxacin/Dextrose 500 mg/ (Premix) 100 mls @ 100 mls/hr IV Q24H [facility] Last Admin: 06/27/17 09:07 Dose: 100 mls/hr Magnesium Sulfate 2 gm/ Premix 50 mls @ 50 mls/hr IV ONETIME ONE Stop: 06/27/17 09:59 Last Admin: 06/27/17 10:30 Dose: 50 mls/hr Levofloxacin/Dextrose 250 mg/ (Premix) 50 mls @ 50 mls/hr IV ONETIME ONE Stop: 06/27/17 13:43 Last Admin: 06/27/17 13:15 Dose: Not Given - Exam General: Alert, Oriented, Cooperative, No Acute Distress, Other (Dysarthria) HEENT: Pupils Equal, Pupils Reactive, EOMI, Mucous Membr. Moist/[place] Neck: Supple, Trachea Midline, No JVD Lungs: Normal Respiratory Effort, Decreased Breath Sounds Cardiovascular: Irregular Rhythm GI/Abdominal Exam: Normal Bowel Sounds, Soft, Non-Tender, No Organomegaly, No Distention, No Abnormal Bruit (Male) Exam: Deferred Back Exam: Normal Inspection, Decreased Range of Motion Extremities: Normal Inspection, Non-Tender, No Pedal Edema, Limited Range of Motion Peripheral Pulses: 2+: Dorsalis Pedis (L), Dorsalis Pedis (R) Skin: Warm, Dry, Intact Neurological: No New Focal Deficit, Other (right sided hemiparesis). No: Normal Gait, Normal Speech, Strength Equal Bilateral, Reflexes Equal Bilateral, Sensation Intact Psy/Mental Status: Alert, Normal Mood. No: Normal Affect, Depressed, Suicidal Ideation, Withdrawal Symptoms - Problem List Review Problem List Initiated/Reviewed/Updated: Yes - My Orders Last 24 Hours: My Active Orders 06/27/17 08:36 Metoprolol Tartrate [Lopressor] 5 mg IVPUSH Q4H PRN hydrALAZINE [Apresoline] 10 mg IVPUSH Q4H PRN 06/27/17 08:38 Benzonatate [Tessalon Perles] 100 mg PO TID PRN 06/27/17 08:39 Bisacodyl [Dulcolax] 10 mg RECTAL DAILY PRN 06/27/17 08:45 Magnesium Rep Pharmacy to Dose [Pharmacy to Dose - Magnesium Replacement] 0 dose .XX ASDIRECTED PRN Potassium Rep Pharmacy to Dose [Pharmacy to Dose - Potassium Replacement] 0 dose .XX ASDIRECTED PRN 06/27/17 21:00 Hydrochlorothiazide 12.5 mg PO BIDDIURETIC Patient's Own Medication [Ptom] 0 each PO BEDTIME 06/27/17 Dinner Heart Healthy Diet [DIET] Sodium Restricted Diet [DIET] 06/28/17 06:02 CRP [C-REACTIVE PROTEIN] [CHEM] AM 06/28/17 09:00 Furosemide [Lasix] 20 mg PO DAILY Levofloxacin/Dextrose 5%-Water [Levaquin in D5W 750 MG/150 ML] 750 mg Premix Bag 1 bag IV Q24H Lisinopril [Prinivil] 20 mg PO DAILY 06/29/17 05:11 CRP [C-REACTIVE PROTEIN] [CHEM] AM 06/30/17 05:11 CRP [C-REACTIVE PROTEIN] [CHEM] AM 07/01/17 05:11 CRP [C-REACTIVE PROTEIN] [CHEM] AM - Plan Plan:: Assessment/Plan: Acute: Fever likely 2/2 Bronchitis vs. Early Pneumonia, - Reportedly up to 101 in ED and at SNF - Hypoxic with oxygen saturations in low 80's at SNF; cough with sputum and chest congestion - On 3L O2 in ED. Not on home O2. - Pt. hx/o CVA with hemiparesis - risk factor due to decreased mobility - Urinary incontinent with questions of possible urinary retention; UA negative - Straight cathed in ED, has had frequent episodes of incontinence here - risk for UTI - CXR interpreted by Dr. Knight shows nothing acute - Lactic acid 1.1 - WBC 12.42 --> 11.73 --> 10.60; CRP 12.3--> 12.6 (reviewed labs--has chronically elevated levels); will check for ESR - Neutrophils 80%; No bandemia - Continue Levaquin 750 mg IV daily, Duonebs, O2 as ordered, and RT evaluate/ treat - Possible viral in etiology; if leukocytosis resolves in am-will d/c antibiotic - Sputum Cx and Gram stain both negative - Mycoplasma pneumonia/Blood Culture and Influenza screening negative Elevated D-Dimer - Hx/o A-fib; On Eliquis and ASA - Risk factors: sedentary due to hemiparesis and A-Fib - PT 11.4/INR 1.04/APTT 33 - D-Dimer 1.29 in ED - I discussed this with the patient and his . I explained how this may be due to the patient having a blood clot in his lungs, or it may be a false positive due to his other co-morbid conditions. I explained the testing that would be needed including CT angiogram or VQ scan. The patient states he would not like aggressive treatment and refuses further investigation. His agrees as well - Suspect elevated D-Dimer due to CHF CHF - Acute on chronic; with Preserved EF 57% 12/19/2015-awaiting most recent report from [facility] - SOB - Pro-BNP 1857 --> 1868 - On 20 mg lasix po daily; changed to BID - Bumex 0,5 mg IVP x 1 now - Heart healthy diet and 2 Gram Sodium daily restriction - Monitor kidney function High Risk for Aspiration - / Dysarthria - [employer] eval completed yesterday; okay to resume usual diet Constipation - Bowel prep - PRN meds Chronic: Elevated Troponin, - This is chronic to him - HR in 40's at times - A-Fib chronically and on Eliquis and ASA - 0.934 at 0705 in ED today - Reviewed old chart - hx/o elevated troponins -0.987 on 09/29/16 at 1500 -0.991 on 09/29/16 at 1304 -0.808 on 12/20/15 at 0639 -1.005 on 12/18/15 at 2000 -1.031 on 12/18/15 at 1317 -0.638 on 06/18/17 at 605 - On last visit pt. was transferred to [facility] for observation due to elevated trop. and bradycardia with HR in 40's - Patient does not want aggressive treatment, in ED was requesting to return home. States he is ready to . - Will order repeat troponin, CK-MB - Suspect chronic troponin leak from CHF and CKD CKD, Stage III, At baseline - Appears stable from prior visits - BUN 31 - Creatinine 1.4 - eGFR 49 - Monitor daily labs as we are attempting to diuresis HTN - stable HLD - hold statin A-fib on Eliquis Bradycardia Cardiomegaly Chronic constipation Fecal incontinence Urinary retention Urinary incontinence Hemiparesis - right side Hx/o CVA with marked dysarthria Depression Vitamin D deficiency Idiopathic Thrombocytopenia Plan: He remains clinically stable Continue current treatment/PT/OT Routine AM labs Adjusted BP regimen CM/SW for discharge planning GI/DVT prophylaxis: H2B/Eliquis He is a high fall and aspiration risk Code status: DNR/DNI His PCP is Dr. Kaba at [facility] here in [place] Possible d/c in AM
[2017-06-28] MEDS ORDERED: Lisinopril 20 MG Tab PO SCH (09:00)
[2017-06-28] MEDS ORDERED: Furosemide 20 MG Tab PO SCH ×2 (09:00→21:00)
[2017-06-28] MEDS: Aspirin 81 MG Tab.Chew PO SCH (09:44)
[2017-06-28] MEDS: Apixaban 5 MG Tab PO SCH ×2 (09:44→20:26)
[2017-06-28] MEDS: Famotidine 20 MG Tab PO SCH (09:44)
[2017-06-28] MEDS: amLODIPine 10 MG Tab PO SCH (09:45)
[2017-06-28] MEDS: Sertraline 50 MG Tab PO SCH (09:47)
[2017-06-28] MEDS: Hypromellose 0.5% Ophth Soln 15 ML Bottle EYEBOTH SCH ×3 (09:47→20:27)
[2017-06-28] MEDS: Levofloxacin/Dextrose 5%-Water 750 MG in Premix Bag 1 BAG IV SCH (09:49)
[2017-06-28] MEDS ORDERED: Lactulose Soln 10 GM/15 ML 30 ML UD Cup PO PRN (13:54)
[2017-06-28] MEDS ORDERED: Bumetanide 1 MG/4 ML MDV IVPUSH ONE (14:07)
[2017-06-28] MEDS ORDERED: guaiFENesin 600 MG Tab.ER PO ONE (14:19)
[2017-06-28] MEDS: Lisinopril 10 MG Tab PO SCH (18:36)
[2017-06-28] MEDS: Pravastatin Sodium 80 MG PO SCH (20:22)
[2017-06-28] MEDS: guaiFENesin 600 MG Tab.ER PO SCH (20:27)
[2017-06-29] MEDS ORDERED: Furosemide 20 MG Tab PO SCH (06:00)
--- NOTE | 2017-06-29 08:30 | CR ---
Chest: Portable view of the chest was obtained. Comparison: Previous chest x-rays of 06/26/17 and 09/29/16. Heart is enlarged. Mild tortuosity of the thoracic aorta is seen. Lung markings mildly increased. Slight pleural thickening is felt to be present within the right base likely chronic and better seen currently due to mild patient rotation. Minimal bibasilar atelectasis is seen. Impression: 1. Slight increased central lung markings. Findings raise the possibility of bronchitis. 2. Cardiomegaly and other incidental findings. Diagnostic code #3
[2017-06-29] MEDS: Levofloxacin/Dextrose 5%-Water 750 MG in Premix Bag 1 BAG IV SCH (09:06)
[2017-06-29] MEDS ORDERED: Bumetanide 1 MG/4 ML MDV IVPUSH ONE (09:10)
[2017-06-29] MEDS: Apixaban 5 MG Tab PO SCH ×2 (09:11→21:48)
[2017-06-29] MEDS: Famotidine 20 MG Tab PO SCH (09:12)
[2017-06-29] MEDS: Aspirin 81 MG Tab.Chew PO SCH (09:12)
[2017-06-29] MEDS: Sertraline 50 MG Tab PO SCH (09:13)
[2017-06-29] MEDS: Hypromellose 0.5% Ophth Soln 15 ML Bottle EYEBOTH SCH ×3 (09:13→21:49)
[2017-06-29] MEDS: guaiFENesin 600 MG Tab.ER PO SCH ×2 (09:14→21:49)
[2017-06-29] MEDS: amLODIPine 5 MG Tab PO SCH (09:16)
[2017-06-29] MEDS: Hydrochlorothiazide 12.5 MG Cap PO SCH (09:16)
[2017-06-29] MEDS: Lisinopril 10 MG Tab PO SCH (09:16)
--- NOTE | 2017-06-29 09:22 | PCM.PN ---
- General Info Date of Service: 06/29/17 Admission Dx/Problem (Free Text): Admission Diagnosis/Problem Admission Diagnosis/Problem NSTEMI, initial episode of care Jai is seen this morning; he is alert and interactive. Answers questions appropriately, difficult to understand due to slurred speech (chronic s/p CVA). He denies c/o pain today but is motioning to his left arm, I palpate his wrist and hand and he does have pain to his left wrist. He and his deny any prior gout by hx. He denies CP or palpitations, no back pain or abdominal pain. Answers yes that he slept well and has a good appetite. Karie and PT is in room during my exam today Functional Status: Reports: Pain Controlled (new left sided wrist/hand pain), Tolerating Diet, Urinating. Denies: Ambulating - Review of Systems General: Reports: Weakness. Denies: Fever HEENT: Denies: Headaches Pulmonary: Denies: Shortness of Breath, Cough Cardiovascular: Denies: Chest Pain, Palpitations Gastrointestinal: Denies: Abdominal Pain, Nausea Musculoskeletal: Reports: Arm Pain (left wrist) Neurological: Reports: Trouble Speaking (long hx of speech disturbance s/p CVA 6 years ago) - Patient Data Vitals - Most Recent: Last Vital Signs Temp 98.8 F 06/29/17 09:10 Pulse 49 L 06/29/17 09:10 Resp 20 06/29/17 09:10 BP 122/46 L 06/29/17 09:16 Pulse Ox 96 06/29/17 09:10 Weight - Most Recent: 227 lb 11.2 oz I&O - Last 24 Hours: Intake & Output 06/28/17 06/29/17 06/29/17 22:59 06:59 14:59 Intake Total 1150 0 Balance 1150 0 Lab Results Last 24 Hours: Laboratory Results - last 24 hr 06/28/17 06/28/17 06/29/17 Range/Units 11:35 15:00 06:06 WBC 10.55 H (4.23-9.07) K/mm3 RBC 3.52 L (4.63-6.08) M/mm3 Hgb 10.6 L (13.7-17.5) gm/L Hct 32.9 L (40.1-51.0) % MCV 93.5 H (79.0-92.2) fl MCH 30.1 (25.7-32.2) pg MCHC 32.2 (32.2-35.5) g/dl RDW Std Deviation 44.9 H (35.1-43.9) fL Plt Count 103 L (163-337) K/mm3 MPV 11.0 (9.4-12.3) fl Neut % (Auto) 78.7 H (34.0-67.9) % Lymph % (Auto) 10.7 L (21.8-53.1) % [place] % (Auto) 8.9 (5.3-12.2) % Eos % (Auto) 1.3 (0.8-7.0) Baso % (Auto) 0.2 (0.1-1.2) % Neut # (Auto) 8.30 H (1.78-5.38) K/mm3 Lymph # (Auto) 1.13 L (1.32-3.57) K/mm3 [place] # (Auto) 0.94 H (0.30-0.82) K/mm3 Eos # (Auto) 0.14 (0.04-0.54) K/mm3 Baso # (Auto) 0.02 (0.01-0.08) K/mm3 ESR 88 H (0-15) mm/hr Sodium (136-145) mEq/L Potassium (3.5-5.1) mEq/L Chloride (98-107) mEq/L Carbon Dioxide (21-32) mEq/L Anion Gap (5-15) BUN (7-18) mg/dL Creatinine (0.7-1.3) mg/dL Est Cr Clr Drug Dosing mL/min Estimated GFR (MDRD) (>60) mL/min BUN/Creatinine Ratio (14-18) Glucose (83-115) mg/dL POC Glucose 96 (83-110) mg/dL Calcium (8.5-10.1) mg/dL Magnesium (1.8-2.4) mg/dl C-Reactive Protein (<1.0) mg/dL NT-Pro-B Natriuret Pep (0-450) pg/mL 06/29/17 06/29/17 Range/Units 06:06 06:06 WBC (4.23-9.07) K/mm3 RBC (4.63-6.08) M/mm3 Hgb (13.7-17.5) gm/L Hct (40.1-51.0) % MCV (79.0-92.2) fl MCH (25.7-32.2) pg MCHC (32.2-35.5) g/dl RDW Std Deviation (35.1-43.9) fL Plt Count (163-337) K/mm3 MPV (9.4-12.3) fl Neut % (Auto) (34.0-67.9) % Lymph % (Auto) (21.8-53.1) % [place] % (Auto) (5.3-12.2) % Eos % (Auto) (0.8-7.0) Baso % (Auto) (0.1-1.2) % Neut # (Auto) (1.78-5.38) K/mm3 Lymph # (Auto) (1.32-3.57) K/mm3 [place] # (Auto) (0.30-0.82) K/mm3 Eos # (Auto) (0.04-0.54) K/mm3 Baso # (Auto) (0.01-0.08) K/mm3 ESR 84 H (0-15) mm/hr Sodium 141 (136-145) mEq/L Potassium 3.6 (3.5-5.1) mEq/L Chloride 105 (98-107) mEq/L Carbon Dioxide 31 (21-32) mEq/L Anion Gap 8.6 (5-15) BUN 34 H (7-18) mg/dL Creatinine 1.5 H (0.7-1.3) mg/dL Est Cr Clr Drug Dosing 42.91 mL/min Estimated GFR (MDRD) 45 (>60) mL/min BUN/Creatinine Ratio 22.7 H (14-18) Glucose 96 (83-115) mg/dL POC Glucose (83-110) mg/dL Calcium 8.5 (8.5-10.1) mg/dL Magnesium 2.0 (1.8-2.4) mg/dl C-Reactive Protein 13.4 H* (<1.0) mg/dL NT-Pro-B Natriuret Pep 1923 H (0-450) pg/mL [facility] Results Last 24 Hours: Microbiology 06/26/17 18:40 Gram Stain - Final Sputum - Expectorated Sputum Culture - Preliminary Normal Teresa Med Orders - Current: Current Medications Acetaminophen (Tylenol) 650 mg PO Q4H PRN PRN Reason: Pain (Mild 1-3)/fever Hydrocodone Bitart/Acetaminophen ([place] 325-5 Mg) 1 tab PO Q4H PRN PRN Reason: Pain (moderate 4-6) Albuterol (Proventil Neb Soln) 2.5 mg NEB Q6HRRT [facility] Albuterol/Ipratropium (Duoneb 3.0-0.5 Mg/3 Ml) 3 ml NEB Q4H PRN PRN Reason: Shortness Of Breath/wheezing Amlodipine Besylate (Norvasc) 5 mg PO DAILY [facility] Last Admin: 06/29/17 09:16 Dose: 5 mg Apixaban (Eliquis) 2.5 mg PO BID [facility] Last Admin: 06/29/17 09:11 Dose: 2.5 mg Artificial Tears (Isopto Tears 0.5% Ophth Soln) 0 ml EYEBOTH TID [facility] Last Admin: 06/29/17 09:13 Dose: 1 drop Aspirin (Aspirin) 81 mg PO DAILY [facility] Last Admin: 06/29/17 09:12 Dose: 81 mg Azithromycin (Zithromax) 500 mg PO DAILY [facility] Benzonatate (Tessalon Perles) 100 mg PO TID PRN PRN Reason: Cough Last Admin: 06/27/17 09:08 Dose: 100 mg Bisacodyl (Dulcolax) 10 mg RECTAL DAILY PRN PRN Reason: Constipation Docusate Sodium (Colace) 100 mg PO BID PRN PRN Reason: Constipation Famotidine (Pepcid) 20 mg PO DAILY [facility] Last Admin: 06/29/17 09:12 Dose: 20 mg Furosemide (Lasix) 40 mg PO BIDDIURETIC [facility] Guaifenesin (Mucinex) 600 mg PO BID [facility] Last Admin: 06/29/17 09:14 Dose: 600 mg Hydralazine HCl (Apresoline) 10 mg IVPUSH Q4H PRN PRN Reason: Hypertension Hydrochlorothiazide (Hydrochlorothiazide) 12.5 mg PO DAILY [facility] Last Admin: 06/29/17 09:16 Dose: 12.5 mg Levofloxacin/Dextrose 750 mg/ (Premix) 150 mls @ 100 mls/hr IV Q48H [facility] Lactulose (Cephulac) 20 gm PO BID PRN PRN Reason: Constipation Lisinopril (Prinivil) 10 mg PO DAILY [facility] Last Admin: 06/29/17 09:16 Dose: 10 mg Magnesium Hydroxide (Milk Of Magnesia) 30 ml PO Q12H PRN PRN Reason: Constipation Last Admin: 06/28/17 06:47 Dose: 30 ml Magnesium Sulfate (Pharmacy To Dose - Magnesium Replacement) 0 dose .XX ASDIRECTED PRN PRN Reason: RX TO WATCH MAG LEVELS Metoprolol Tartrate (Lopressor) 5 mg IVPUSH Q4H PRN PRN Reason: Tachycardia Ondansetron HCl (Zofran Odt) 4 mg PO Q6H PRN PRN Reason: nausea, able to take PO Ondansetron HCl (Zofran) 4 mg IV Q6H PRN PRN Reason: Nausea/Vomiting Polyethylene Glycol (Miralax) 17 gm PO DAILY PRN PRN Reason: Constipation Last Admin: 06/28/17 06:46 Dose: 17 gm Potassium Chloride (Pharmacy To Dose - Potassium Replacement) 0 dose .XX ASDIRECTED PRN PRN Reason: RX TO WATCH K LEVELS Senna/Docusate Sodium (Senna Plus) 1 tab PO BID PRN PRN Reason: Constipation Sertraline HCl (Zoloft) 50 mg PO DAILY [facility] Last Admin: 06/29/17 09:13 Dose: 50 mg Simvastatin (Zocor) 40 mg PO BEDTIME [facility] Temazepam (Restoril) 15 mg PO BEDTIME PRN PRN Reason: Sleep Discontinued Medications Acetaminophen (Tylenol) 975 mg PO NOW STA Stop: 06/26/17 07:16 Last Admin: 06/26/17 08:57 Dose: 975 mg Albuterol/Ipratropium (Duoneb 3.0-0.5 Mg/3 Ml) 3 ml NEB ONETIME ONE Stop: 06/26/17 07:35 Last Admin: 06/26/17 07:56 Dose: 3 ml Amlodipine Besylate (Norvasc) 10 mg PO DAILY [facility] Last Admin: 06/28/17 09:45 Dose: 10 mg Bumetanide (Bumex) 0.5 mg IVPUSH BID [facility] Bumetanide (Bumex) 0.5 mg IVPUSH ONETIME ONE Stop: 06/26/17 18:46 Last Admin: 06/26/17 21:45 Dose: 0.5 mg Bumetanide (Bumex) 0.5 mg IVPUSH BID [facility] Last Admin: 06/27/17 09:13 Dose: 0.5 mg Bumetanide (Bumex) 0.5 mg IVPUSH ONETIME ONE Stop: 06/28/17 14:08 Last Admin: 06/28/17 14:39 Dose: 0.5 mg Bumetanide (Bumex) 0.5 mg IVPUSH ONETIME ONE Stop: 06/29/17 09:11 Furosemide (Lasix) 40 mg IVPUSH NOW ONE Stop: 06/26/17 08:20 Last Admin: 06/26/17 08:40 Dose: 40 mg Furosemide (Lasix) 20 mg PO DAILY [facility] Last Admin: 06/28/17 09:45 Dose: 20 mg Furosemide (Lasix) 20 mg PO BID [facility] Last Admin: 06/28/17 20:27 Dose: 20 mg Furosemide (Lasix) 20 mg PO BIDDIURETIC [facility] Last Admin: 06/29/17 05:13 Dose: 20 mg Guaifenesin (Mucinex) 600 mg PO ONETIME ONE Stop: 06/28/17 14:20 Last Admin: 06/28/17 14:39 Dose: 600 mg Hydrochlorothiazide (Hydrochlorothiazide) 12.5 mg PO BIDDIURETIC [facility] Last Admin: 06/28/17 13:56 Dose: 12.5 mg Levofloxacin/Dextrose 750 mg/ (Premix) 150 mls @ 100 mls/hr IV ONETIME ONE Stop: 06/26/17 09:09 Last Admin: 06/26/17 08:44 Dose: 100 mls/hr Levofloxacin/Dextrose 500 mg/ (Premix) 100 mls @ 100 mls/hr IV Q24H [facility] Last Admin: 06/27/17 09:07 Dose: 100 mls/hr Magnesium Sulfate 2 gm/ Premix 50 mls @ 50 mls/hr IV ONETIME ONE Stop: 06/27/17 09:59 Last Admin: 06/27/17 10:30 Dose: 50 mls/hr Levofloxacin/Dextrose 750 mg/ (Premix) 150 mls @ 100 mls/hr IV Q24H [facility] Last Admin: 06/29/17 09:06 Dose: 100 mls/hr Levofloxacin/Dextrose 250 mg/ (Premix) 50 mls @ 50 mls/hr IV ONETIME ONE Stop: 06/27/17 13:43 Last Admin: 06/27/17 13:15 Dose: Not Given Lisinopril (Prinivil) 20 mg PO DAILY [facility] Last Admin: 06/28/17 09:47 Dose: 20 mg Pravastatin Sodium (80 Mg) 0 each PO BEDTIME [facility] Last Admin: 06/28/17 20:22 Dose: Not Given - Exam Quality Assessment: Supplemental Oxygen, DVT Prophylaxis General: Alert, Cooperative, No Acute Distress HEENT: Pupils Equal, EOMI Neck: Supple, No JVD Lungs: Normal Respiratory Effort, Decreased Breath Sounds (bases), Crackles ( fine at bases bilat) Cardiovascular: Regular Rate, Regular Rhythm, Murmurs (systolic, grade 2) GI/Abdominal Exam: Normal Bowel Sounds, Soft, Non-Tender (Male) Exam: Deferred Extremities: Pedal Edema (bilat LE, rt is 1+, left is trace. Left wrist and hand with mild amt of swelling and + tenderness to palpation of joints of wrist and MCP joint spaces) Peripheral Pulses: 1+: Dorsalis Pedis (L), Dorsalis Pedis (R), 2+: Radial (L), Radial (R) Skin: Warm, Dry Wound/Incisions: Dressing Dry and Intact Neurological: No: Normal Speech (garbled speech (hx s/p CVA), but is discernable ) Psy/Mental Status: Alert - Problem List & Annotations (1) CHF (congestive heart failure), NYHA class III SNOMED Code(s): 170380786 Code(s): I50.9 - HEART FAILURE, UNSPECIFIED Status: Acute Priority: High Current Visit: Yes Qualifiers: Congestive heart failure type: diastolic Congestive heart failure chronicity: acute on chronic Qualified Code(s): I50.33 - Acute on chronic diastolic (congestive) heart failure (2) Elevated troponin I level SNOMED Code(s): 960377915 Code(s): R74.8 - ABNORMAL LEVELS OF OTHER SERUM ENZYMES Status: Chronic Priority: Medium Current Visit: Yes (3) Bradycardia with 41-50 beats per minute SNOMED Code(s): 39817914 Code(s): R00.1 - BRADYCARDIA, UNSPECIFIED Status: Acute Current Visit: No (4) Bronchitis SNOMED Code(s): 13601216 Code(s): J40 - BRONCHITIS, NOT SPECIFIED ACUTE OR CHRONIC Status: Acute Priority: High Current Visit: Yes (5) CKD (chronic kidney disease) stage 3, GFR 30-59 ml/min SNOMED Code(s): 127068358 Code(s): N18.3 - CHRONIC KIDNEY DISEASE, STAGE 3 (MODERATE) Status: Chronic Priority: High Current Visit: Yes (6) History of CVA with residual deficit SNOMED Code(s): 828823561 Code(s): I69.30 - UNSPECIFIED SEQUELAE OF CEREBRAL INFARCTION Status: Chronic Priority: Medium Current Visit: Yes (7) History of hemiparesis SNOMED Code(s): 175446426 Code(s): Z86.69 - PERSONAL HISTORY OF DIS OF THE NERVOUS SYS AND SENSE ORGANS Status: Chronic Priority: Medium Current Visit: Yes (8) History of thrombocytopenia SNOMED Code(s): 049248831 Code(s): Z86.2 - PRSNL HISTORY OF DIS OF THE BLD/BLD-FORM ORG/IMMUN MECHNSM Status: Chronic Priority: Low Current Visit: Yes - Problem List Review Problem List Initiated/Reviewed/Updated: Yes - My Orders Last 24 Hours: My Active Orders 06/29/17 09:07 Echo Comp wo Cont [US] Routine 06/29/17 09:10 Bumetanide [Bumex] 0.5 mg IVPUSH ONETIME ONE 06/29/17 09:15 Azithromycin [Zithromax] 500 mg PO DAILY 06/29/17 09:16 RT Aerosol Therapy [RC] ASDIRECTED 06/29/17 14:00 Furosemide [Lasix] 40 mg PO BIDDIURETIC 06/29/17 15:00 Albuterol [Proventil Neb Soln] 2.5 mg NEB Q6HRRT - Plan Plan:: Assessment/Plan: Acute: Fever likely 2/2 Bronchitis vs. Early Pneumonia, - Reportedly up to 101 in ED and at SNF - Hypoxic with oxygen saturations in low 80's at SNF; cough with sputum and chest congestion - On 3L O2 in ED. Not on home O2. - Pt. hx/o CVA with hemiparesis - risk factor due to decreased mobility - Urinary incontinent with questions of possible urinary retention; UA negative; Straight cathed in ED, has had frequent episodes of incontinence here - risk for UTI - CXR interpreted by Dr. Knight shows nothing acute -- Repeat today with findings consistent with bronchitis - WBC 12.42 --> 11.73 --> 10.60---> 10.5; CRP 12.3--> 12.6-->13.4 (reviewed labs--has chronically elevated levels); ESR's in the 80's - Continue Levaquin 750 mg IV daily, Duonebs, O2 as ordered, and RT evaluate/treat; will add zithromax today, PO x 3 days - Possible viral in etiology; if leukocytosis resolves in am-will d/c antibiotic - BC and SC both negative - Mycoplasma pneumonia/Blood Culture and Influenza screening negative Elevated D-Dimer - Hx/o A-fib; On Eliquis and ASA - Risk factors: sedentary due to hemiparesis and A-Fib - PT 11.4/INR 1.04/APTT 33 - D-Dimer 1.29 in ED - I discussed this with the patient and his . I explained how this may be due to the patient having a blood clot in his lungs, or it may be a false positive due to his other co-morbid conditions. I explained the testing that would be needed including CT angiogram or VQ scan. The patient states he would not like aggressive treatment and refuses further investigation. His agrees as well - Suspect elevated D-Dimer due to CHF CHF - Acute on chronic; with Preserved EF 57% 12/19/2015-awaiting most recent report from [facility] - SOB - Pro-BNP 1857 --> 1868-->1400's-->1900's today - On 20 mg lasix po daily; increased to 40mg BID - Bumex 0,5 mg IVP x 1this morning - Heart healthy diet and 2 Gram Sodium daily restriction - Monitor kidney function; creatinine 1.4-1.5 consistently High Risk for Aspiration - 2/2 Dysarthria, HX of CVA with residual dysarthria - [employer] eval completed yesterday; okay to resume usual diet Constipation - Bowel prep - PRN meds Chronic: Elevated Troponin, - This is chronic to him - HR in 40's at times -- Not on any BB's - A-Fib chronically and on Eliquis and ASA - 0.934 at 0705 in ED today - Reviewed old chart - hx/o elevated troponins -0.987 on 09/29/16 at 1500 -0.991 on 09/29/16 at 1304 -0.808 on 12/20/15 at 0639 -1.005 on 12/18/15 at 2000 -1.031 on 12/18/15 at 1317 -0.638 on 06/18/17 at 605 - On last visit pt. was transferred to [place] for observation due to elevated trop. and bradycardia with HR in 40's - Patient does not want aggressive treatment, in ED was requesting to return home. States he is ready to . - Will order repeat troponin, CK-MB - Suspect chronic troponin leak from CHF and CKD CKD, Stage III, At baseline - Appears stable from prior visits - BUN 31 - Creatinine 1.4 - eGFR 49 - Monitor daily labs as we are attempting to diuresis HTN - stable HLD - hold statin A-fib on Eliquis Bradycardia Cardiomegaly Chronic constipation Fecal incontinence Urinary retention Urinary incontinence Hemiparesis - right side Hx/o CVA with marked dysarthria Depression Vitamin D deficiency Idiopathic Thrombocytopenia Plan: He remains clinically stable Continue current treatment/PT/OT Routine AM labs Adjusted BP and diuretic regimen CM/SW for discharge planning--- likely dc in next 24-48 hours; LOS will be >96 hours due to slower than expected course of improvement with CHF and ongoing bronchitis concerns/treatment GI/DVT prophylaxis: H2B/Eliquis He is a high fall and aspiration risk Code status: DNR/DNI His PCP is Dr. Kaba at [facility] in [place]
[2017-06-29] MEDS: Azithromycin 250 MG Tab PO SCH (09:24)
[2017-06-29] MEDS: Albuterol 0.083% 2.5 MG/3 ML Neb Soln NEB SCH ×2 (14:33→20:13)
[2017-06-29] MEDS: Furosemide 40 MG Tab PO SCH (15:06)
[2017-06-29] MEDS ORDERED: Simvastatin 40 MG Tab PO SCH (22:15)
[2017-06-30] MEDS: Albuterol 0.083% 2.5 MG/3 ML Neb Soln NEB SCH ×2 (03:36→08:00)
[2017-06-30] MEDS: Furosemide 40 MG Tab PO SCH ×2 (06:53→15:32)
[2017-06-30 08:58] VITALS: BP 123/59
--- NOTE | 2017-06-30 09:05 | CR ---
Chest: Portable view of the chest was obtained. Comparison: Prior chest x-ray of 06/29/17. Heart size appears within normal limits for portable technique. Tortuous thoracic aorta is seen. Atherosclerotic change is noted within the aorta. Lungs are felt to be clear with no acute infiltrates. Bony structures are grossly intact. Impression: 1. Incidental findings. Nothing acute is identified on portable chest x-ray. Diagnostic code #2
[2017-06-30] MEDS: amLODIPine 5 MG Tab PO SCH (10:00)
[2017-06-30] MEDS: Azithromycin 250 MG Tab PO SCH (10:00)
[2017-06-30] MEDS: Famotidine 20 MG Tab PO SCH (10:00)
[2017-06-30] MEDS: Sertraline 50 MG Tab PO SCH (10:00)
[2017-06-30] MEDS: Hydrochlorothiazide 12.5 MG Cap PO SCH (10:00)
[2017-06-30] MEDS: Lisinopril 10 MG Tab PO SCH (10:00)
[2017-06-30] MEDS: Aspirin 81 MG Tab.Chew PO SCH (10:00)
[2017-06-30] MEDS: Apixaban 5 MG Tab PO SCH (10:00)
[2017-06-30] MEDS: Hypromellose 0.5% Ophth Soln 15 ML Bottle EYEBOTH SCH (10:00)
[2017-06-30] MEDS: guaiFENesin 600 MG Tab.ER PO SCH (10:00)
--- NOTE | 2017-06-30 11:58 | PCM.DCSUM1 ---
Discharge Summary - Hospital Course Free Text/Narrative:: Jai Waters is an 82 yo male who was brought to our ED today via killed her ambulance with shortness of breath. He has marked dysarthria from prior stroke is very difficult to understand. He has been febrile with a congested cough. O2 sats on presentation were in the low 80s. His reported symptoms started yesterday with cough and fever. He is on chronic anticoagulants because of A. fib. Rate appears to be controlled in the 60s. He was provided oxygen and a DuoNeb in route by paramedics. It is reported he started at 2 L with sats only at 89% and was bumped to 3 L. Once in the ED oxygen was continued. Patterson catheter was inserted and it is noted there was some question with urinary retention per discussion with the . Twelve-lead EKG was obtained showing A. fib with a rate of 48-62 bpm. Nonspecific IVCD with LAD. Near Q waves noted in 2 and aVF. Q waves noted in leads 3 T-wave flattening noted in V6 and inverted T-wave in lead 2 and aVL. QTC is 458. Blood cultures were obtained. Influenza A and B screen was obtained and both were negative. DuoNebs were continued. Temperature was reported to be near 101. Pulse was 51. Respirations 16. Blood pressure 133/ 50. Pulse ox 95%. Labs were obtained: He did have a white count at 12.42. Hemoglobin was low at 11 and hematocrit was low at 33.9. He was macrocytic. Platelets were normal at 289,000. Neutrophils were elevated at 80%. There was no bandemia. PT was 11.4. INR 1.04. APTT 33. D-dimer was elevated at 1.29 however this is thought to be the result of his heart failure. ABG was obtained of the left radial. PH was 7.37. PCO2 41.7. PO2 low at 65. Bicarbonate 23.3. O2 saturation low at 92.3. ABG base excess -1.5. A-a gradient was 62. This is on 3 L via nasal cannula. FiO2 was 28. Sodium was slightly elevated at 146. Potassium 3.8. Chloride 111. Carbon dioxide 27. Anion gap 11.8. BUN elevated at 31. Creatinine 1.4. EGFR 49. Glucose was 106. Lactic acid 1.1. Calcium 8.6. Magnesium on the low end of normal at 1.8. Total bilirubin 0.5. Liver enzymes are good with AST at 26, ALT 30, alkaline phosphatase 62. Troponin was elevated at 0.934. ProBNP elevated at 1857. Albumin was low at 2.7. UA was negative. One view chest x-ray was obtained portably. This was interpreted by Dr. Knight as mild cardiomegaly with nothing acute seen. He subsequently admitted to the medical floor on telemetry. CODE STATUS is DNR/ DNI. His primary care provider is Dr. Kaba at [place]. Troponins were trended and slowly trended down but did not normalize. EKG's repeated and remained unchanged. CXR x 3 were obtained all without acute findings, no development of PNA. He was treated with Levaquin IV initially then switched over to zithromax PO for bronchitis. BNP's were mildly elevated, trended up very slightly. Diuretic dosages were adjusted. He has bradycardia, no beta blockers on board; HR's remained 50's-60's. Echo was obtained showing EF of 55-60% without acute valvular concerns, severe biatrial dilation was noted. Patient is stable with VS and labs. Initially patient declined admission and wanted to go back to [place]. and son encouraged admission and he agreed. Prior to discharge long discussion with patient and re: code status. Patient is his own decision maker, no POA is defined. He wishes to be made Comfort Care Code status from DNR/DNI and wishes no further hospitalizations, wishes to be treated at the [place] only for any further medical concerns. He is "ready to go" (ready and okay with dying). Code status will be changed to Comfort Care. He will be DC'd back to [place] today, continue all meds, tx and orders at this time. - Discharge Data Discharge Date: 06/30/17 (06/26/17) Discharge Disposition: Home, Self-Care 01 Condition: Good - Discharge Diagnosis/Problem(s) (1) CHF (congestive heart failure), NYHA class III SNOMED Code(s): 783364875 ICD Code: I50.9 - HEART FAILURE, UNSPECIFIED Status: Acute Priority: Medium Current Visit: Yes Qualifiers: Congestive heart failure type: diastolic Congestive heart failure chronicity: acute on chronic Qualified Code(s): I50.33 - Acute on chronic diastolic (congestive) heart failure (2) Elevated troponin I level SNOMED Code(s): 221468223 ICD Code: R74.8 - ABNORMAL LEVELS OF OTHER SERUM ENZYMES Status: Chronic Priority: Medium Current Visit: Yes (3) Bradycardia with 41-50 beats per minute SNOMED Code(s): 10352593 ICD Code: R00.1 - BRADYCARDIA, UNSPECIFIED Status: Acute Current Visit: No (4) Bronchitis SNOMED Code(s): 85719077 ICD Code: J40 - BRONCHITIS, NOT SPECIFIED ACUTE OR CHRONIC Status: Acute Priority: High Current Visit: Yes (5) CKD (chronic kidney disease) stage 3, GFR 30-59 ml/min SNOMED Code(s): 948518292 ICD Code: N18.3 - CHRONIC KIDNEY DISEASE, STAGE 3 (MODERATE) Status: Chronic Priority: High Current Visit: Yes (6) History of CVA with residual deficit SNOMED Code(s): 888377298 ICD Code: I69.30 - UNSPECIFIED SEQUELAE OF CEREBRAL INFARCTION Status: Chronic Priority: Medium Current Visit: Yes (7) History of hemiparesis SNOMED Code(s): 206998346 ICD Code: Z86.69 - PERSONAL HISTORY OF DIS OF THE NERVOUS SYS AND SENSE ORGANS Status: Chronic Priority: Medium Current Visit: Yes (8) History of thrombocytopenia SNOMED Code(s): 186771809 ICD Code: Z86.2 - PRSNL HISTORY OF DIS OF THE BLD/BLD-FORM ORG/IMMUN MECHNSM Status: Chronic Priority: Low Current Visit: Yes - Patient Summary/Data Operative Procedure(s) Performed: None Complications: None Consults: Consultations 06/26/17 17:02 Consult to Case Management [CONS] Routine Consult to Bending Press Operator [CONS] Routine OT Evaluation and Treatment [CONS] Routine PT Evaluation and Treatment [CONS] Routine Respiratory Care Assess and Treatment [CONS] Routine 06/26/17 17:14 Consult to Speech Language Pathology [BELTING INSPECTOR Evaluation and Treatment] [CONS] Routine Labs Pending at D/C: None Recommended Follow-up Testing/Procedures: Patient DC instructions: Physical, Occupational & Speech therapies to eval & treat Supplemental oxygen per nasal cannula as needed to keep o2 sats greater than 90% Patient wishes Comfort Care code status change from DNR/DNI Planned Operative Procedure(s) after DC: None Hospital Course: As above - Patient Instructions Diet: Heart Healthy Diet, Diabetic Diet Activity: As Tolerated Showering/Bathing: May Shower Notify Provider of: Fever, Increased Pain, Nausea and/or Vomiting - Discharge Plan Prescriptions/Med Rec: Albuterol [IJD: Albuterol] 2.5 mg NEB Q6HRRT PRN #1 box PRN Reason: SOB, wheezing, coughing Azithromycin [Zithromax] 500 mg PO DAILY #3 tablet Benzonatate [Tessalon Perles] 100 mg PO TID PRN #20 cap PRN Reason: Cough Furosemide [Lasix] 40 mg PO DAILY #30 tablet guaiFENesin [Mucinex] 600 mg PO BID #30 tab.er Home Medications: Home Meds Lisinopril 20 mg PO DAILY 06/15/14 [History] Sertraline [Zoloft] 50 mg PO DAILY 06/15/14 [History] Apixaban [Eliquis] 2.5 mg PO BID 06/26/17 [History] Aspirin [Aris Chewable Aspirin] 81 mg PO DAILY 06/26/17 [History] Dextran 70/Hypromellose [Artificial Tears] 1 drop EYEBOTH TID 06/26/17 [History] Pravastatin Sodium 80 mg PO BEDTIME 06/26/17 [History] Sennosides [Senna] 8.6 mg PO BID 06/26/17 [History] amLODIPine [Norvasc] 10 mg PO DAILY 06/26/17 [History] Albuterol [IJD: Albuterol] 2.5 mg NEB Q6HRRT PRN #1 box 06/30/17 [Rx] Azithromycin [Zithromax] 500 mg PO DAILY #3 tablet 06/30/17 [Rx] Benzonatate [Tessalon Perles] 100 mg PO TID PRN #20 cap 06/30/17 [Rx] Furosemide [Lasix] 20 mg PO DAILY #30 06/30/17 [Rx] Furosemide [Lasix] 40 mg PO DAILY #30 tablet 06/30/17 [Rx] guaiFENesin [Mucinex] 600 mg PO BID #30 tab.er 06/30/17 [Rx] Patient Handouts: Non-ST Segment Elevation Heart Attack, Heart Failure, Easy-to -Read, Aspirin, ASA oral tablets, Apixaban oral tablets, Atrial Fibrillation, [id number] Forms: ED Department Discharge Referrals: Joesph Kaba MD [Primary Care Provider] - - Discharge Summary/Plan Comment DC Time >30 min.: Yes (45 min) - General Info Date of Service: 06/30/17 Admission Dx/Problem (Free Text: Admission Diagnosis/Problem Admission Diagnosis/Problem NSTEMI, initial episode of care Jai is seen this morning. He is alert and interactive/appropriate. Review all labs, Xray findings with he and his - all results are stable this morning and essentially unchanged. SW and I have a long discussion with and patient about current code status , condition and expectation/course of treatment and care. Review with patient options for Comfort Care and what that means vs DNR/DNI status and what that means. Patient initially did not want to be admitted but and family essentially persuaded patient to be admitted for treatment. Patient wishes code status to be Comfort Care as he does not wish to return to the hospital for any treatments. states she understands this and is in agreement to deidre this wish for him. Reviewed with patient that he is able to be discharged back to [place] today; he smiles and says "good". Functional Status: Reports: Pain Controlled, Tolerating Diet, Urinating - Review of Systems General: Denies: Fever HEENT: Reports: No Symptoms Pulmonary: Reports: No Symptoms. Denies: Shortness of Breath (denies) Cardiovascular: Reports: No Symptoms. Denies: Chest Pain (denies) Gastrointestinal: Reports: No Symptoms. Denies: Abdominal Pain, Nausea, Vomiting Neurological: Reports: Pre-Existing Deficit (rt sided d/t CVA 6 years ago) Psychiatric: Reports: No Symptoms - Patient Data Vitals - Most Recent: Last Vital Signs Temp 97.7 F 06/30/17 08:00 Pulse 51 L 06/30/17 08:00 Resp 19 06/30/17 08:00 BP 123/59 L 06/30/17 10:00 Pulse Ox 95 06/30/17 08:00 Weight - Most Recent: 224 lb 4.8 oz I&O - Last 24 hours: Intake & Output 06/29/17 06/30/17 06/30/17 22:59 06:59 14:59 Intake Total 400 500 0 Balance 400 500 0 Lab Results - Last 24 hrs: Laboratory Results - last 24 hr 06/30/17 06/30/17 06/30/17 Range/Units 06:25 06:25 06:25 WBC 12.59 H (4.23-9.07) K/mm3 RBC 3.68 L (4.63-6.08) M/mm3 Hgb 10.9 L (13.7-17.5) gm/L Hct 33.9 L (40.1-51.0) % MCV 92.1 (79.0-92.2) fl MCH 29.6 (25.7-32.2) pg MCHC 32.2 (32.2-35.5) g/dl RDW Std Deviation 44.0 H (35.1-43.9) fL Plt Count 211 (163-337) K/mm3 MPV 10.6 (9.4-12.3) fl Neut % (Auto) 82.1 H (34.0-67.9) % Lymph % (Auto) 8.4 L (21.8-53.1) % [place] % (Auto) 9.0 (5.3-12.2) % Eos % (Auto) 0.2 L (0.8-7.0) Baso % (Auto) 0.1 (0.1-1.2) % Neut # (Auto) 10.33 H (1.78-5.38) K/mm3 Lymph # (Auto) 1.06 L (1.32-3.57) K/mm3 [place] # (Auto) 1.13 H (0.30-0.82) K/mm3 Eos # (Auto) 0.03 L (0.04-0.54) K/mm3 Baso # (Auto) 0.01 (0.01-0.08) K/mm3 Manual Slide Review Abnormal smear Puncture Site ABG pH (7.35-7.45) ABG pCO2 (35.0-45.0) mmHg ABG pO2 (80.0-100.0) mmHg ABG HCO3 (22.0-26.0) meq/L ABG O2 Saturation (96.0-97.0) % ABG Base Excess (-2-2.0) A-a Gradient mmHg O2 Delivery Device Oxygen Flow Rate FiO2 (21.00-100.00) % Sodium 139 (136-145) mEq/L Potassium 3.7 (3.5-5.1) mEq/L Chloride 100 (98-107) mEq/L Carbon Dioxide 29 (21-32) mEq/L Anion Gap 13.7 (5-15) BUN 39 H (7-18) mg/dL Creatinine 1.9 H (0.7-1.3) mg/dL Est Cr Clr Drug Dosing 33.88 mL/min Estimated GFR (MDRD) 34 (>60) mL/min BUN/Creatinine Ratio 20.5 H (14-18) Glucose 109 (83-115) mg/dL Calcium 8.8 (8.5-10.1) mg/dL Magnesium 2.0 (1.8-2.4) mg/dl Troponin I 0.807 H* (0.00-0.056) ng/mL C-Reactive Protein 19.9 H* (<1.0) mg/dL NT-Pro-B Natriuret Pep 1861 H (0-450) pg/mL 06/30/17 Range/Units 07:32 WBC (4.23-9.07) K/mm3 RBC (4.63-6.08) M/mm3 Hgb (13.7-17.5) gm/L Hct (40.1-51.0) % MCV (79.0-92.2) fl MCH (25.7-32.2) pg MCHC (32.2-35.5) g/dl RDW Std Deviation (35.1-43.9) fL Plt Count (163-337) K/mm3 MPV (9.4-12.3) fl Neut % (Auto) (34.0-67.9) % Lymph % (Auto) (21.8-53.1) % [place] % (Auto) (5.3-12.2) % Eos % (Auto) (0.8-7.0) Baso % (Auto) (0.1-1.2) % Neut # (Auto) (1.78-5.38) K/mm3 Lymph # (Auto) (1.32-3.57) K/mm3 [place] # (Auto) (0.30-0.82) K/mm3 Eos # (Auto) (0.04-0.54) K/mm3 Baso # (Auto) (0.01-0.08) K/mm3 Manual Slide Review Puncture Site Lt radial ABG pH 7.42 (7.35-7.45) ABG pCO2 44.6 (35.0-45.0) mmHg ABG pO2 65.0 L (80.0-100.0) mmHg ABG HCO3 28.7 H (22.0-26.0) meq/L ABG O2 Saturation 92.2 L (96.0-97.0) % ABG Base Excess 4.2 H (-2-2.0) A-a Gradient 110 mmHg O2 Delivery Device Nasal cannula Oxygen Flow Rate 4.0 FiO2 36.00 (21.00-100.00) % Sodium (136-145) mEq/L Potassium (3.5-5.1) mEq/L Chloride (98-107) mEq/L Carbon Dioxide (21-32) mEq/L Anion Gap (5-15) BUN (7-18) mg/dL Creatinine (0.7-1.3) mg/dL Est Cr Clr Drug Dosing mL/min Estimated GFR (MDRD) (>60) mL/min BUN/Creatinine Ratio (14-18) Glucose (83-115) mg/dL Calcium (8.5-10.1) mg/dL Magnesium (1.8-2.4) mg/dl Troponin I (0.00-0.056) ng/mL C-Reactive Protein (<1.0) mg/dL NT-Pro-B Natriuret Pep (0-450) pg/mL JOHN Results - Last 24 hrs: Microbiology 06/26/17 18:40 Gram Stain - Final Sputum - Expectorated Sputum Culture - Final Normal Teresa Med Orders - Current: Current Medications Acetaminophen (Tylenol) 650 mg PO Q4H PRN PRN Reason: Pain (Mild 1-3)/fever Hydrocodone Bitart/Acetaminophen (Lolita 325-5 Mg) 1 tab PO Q4H PRN PRN Reason: Pain (moderate 4-6) Albuterol (Proventil Neb Soln) 2.5 mg NEB Q6HRRT ELVIN Last Admin: 06/30/17 08:00 Dose: 2.5 mg Albuterol/Ipratropium (Duoneb 3.0-0.5 Mg/3 Ml) 3 ml NEB Q4H PRN PRN Reason: Shortness Of Breath/wheezing Amlodipine Besylate (Norvasc) 5 mg PO DAILY [facility] Last Admin: 06/30/17 10:00 Dose: 5 mg Apixaban (Eliquis) 2.5 mg PO BID [facility] Last Admin: 06/30/17 10:00 Dose: 2.5 mg Artificial Tears (Isopto Tears 0.5% Ophth Soln) 0 ml EYEBOTH TID [facility] Last Admin: 06/30/17 10:00 Dose: 1 drop Aspirin (Aspirin) 81 mg PO DAILY [facility] Last Admin: 06/30/17 10:00 Dose: 81 mg Azithromycin (Zithromax) 500 mg PO DAILY [facility] Last Admin: 06/30/17 10:00 Dose: 500 mg Benzonatate (Tessalon Perles) 100 mg PO TID PRN PRN Reason: Cough Last Admin: 06/27/17 09:08 Dose: 100 mg Bisacodyl (Dulcolax) 10 mg RECTAL DAILY PRN PRN Reason: Constipation Docusate Sodium (Colace) 100 mg PO BID PRN PRN Reason: Constipation Famotidine (Pepcid) 20 mg PO DAILY [facility] Last Admin: 06/30/17 10:00 Dose: 20 mg Furosemide (Lasix) 40 mg PO BIDDIURETIC [facility] Last Admin: 06/30/17 06:53 Dose: 40 mg Guaifenesin (Mucinex) 600 mg PO BID [facility] Last Admin: 06/30/17 10:00 Dose: 600 mg Hydralazine HCl (Apresoline) 10 mg IVPUSH Q4H PRN PRN Reason: Hypertension Hydrochlorothiazide (Hydrochlorothiazide) 12.5 mg PO DAILY [facility] Last Admin: 06/30/17 10:00 Dose: 12.5 mg Lactulose (Cephulac) 20 gm PO BID PRN PRN Reason: Constipation Lisinopril (Prinivil) 10 mg PO DAILY [facility] Last Admin: 06/30/17 10:00 Dose: 10 mg Magnesium Hydroxide (Milk Of Magnesia) 30 ml PO Q12H PRN PRN Reason: Constipation Last Admin: 06/28/17 06:47 Dose: 30 ml Magnesium Sulfate (Pharmacy To Dose - Magnesium Replacement) 0 dose .XX ASDIRECTED PRN PRN Reason: RX TO WATCH MAG LEVELS Metoprolol Tartrate (Lopressor) 5 mg IVPUSH Q4H PRN PRN Reason: Tachycardia Ondansetron HCl (Zofran Odt) 4 mg PO Q6H PRN PRN Reason: nausea, able to take PO Ondansetron HCl (Zofran) 4 mg IV Q6H PRN PRN Reason: Nausea/Vomiting Polyethylene Glycol (Miralax) 17 gm PO DAILY PRN PRN Reason: Constipation Last Admin: 06/28/17 06:46 Dose: 17 gm Potassium Chloride (Pharmacy To Dose - Potassium Replacement) 0 dose .XX ASDIRECTED PRN PRN Reason: RX TO WATCH K LEVELS Senna/Docusate Sodium (Senna Plus) 1 tab PO BID PRN PRN Reason: Constipation Sertraline HCl (Zoloft) 50 mg PO DAILY [facility] Last Admin: 06/30/17 10:00 Dose: 50 mg Simvastatin (Zocor) 40 mg PO BEDTIME [facility] Last Admin: 06/29/17 21:48 Dose: 40 mg Temazepam (Restoril) 15 mg PO BEDTIME PRN PRN Reason: Sleep Discontinued Medications Acetaminophen (Tylenol) 975 mg PO NOW STA Stop: 06/26/17 07:16 Last Admin: 06/26/17 08:57 Dose: 975 mg Albuterol/Ipratropium (Duoneb 3.0-0.5 Mg/3 Ml) 3 ml NEB ONETIME ONE Stop: 06/26/17 07:35 Last Admin: 06/26/17 07:56 Dose: 3 ml Amlodipine Besylate (Norvasc) 10 mg PO DAILY [facility] Last Admin: 06/28/17 09:45 Dose: 10 mg Bumetanide (Bumex) 0.5 mg IVPUSH BID [facility] Bumetanide (Bumex) 0.5 mg IVPUSH ONETIME ONE Stop: 06/26/17 18:46 Last Admin: 06/26/17 21:45 Dose: 0.5 mg Bumetanide (Bumex) 0.5 mg IVPUSH BID [facility] Last Admin: 06/27/17 09:13 Dose: 0.5 mg Bumetanide (Bumex) 0.5 mg IVPUSH ONETIME ONE Stop: 06/28/17 14:08 Last Admin: 06/28/17 14:39 Dose: 0.5 mg Bumetanide (Bumex) 0.5 mg IVPUSH ONETIME ONE Stop: 06/29/17 09:11 Last Admin: 06/29/17 09:24 Dose: 0.5 mg Furosemide (Lasix) 40 mg IVPUSH NOW ONE Stop: 06/26/17 08:20 Last Admin: 06/26/17 08:40 Dose: 40 mg Furosemide (Lasix) 20 mg PO DAILY ELVIN Last Admin: 06/28/17 09:45 Dose: 20 mg Furosemide (Lasix) 20 mg PO BID ELVIN Last Admin: 06/28/17 20:27 Dose: 20 mg Furosemide (Lasix) 20 mg PO BIDDIURETIC ELVIN Last Admin: 06/29/17 05:13 Dose: 20 mg Guaifenesin (Mucinex) 600 mg PO ONETIME ONE Stop: 06/28/17 14:20 Last Admin: 06/28/17 14:39 Dose: 600 mg Hydrochlorothiazide (Hydrochlorothiazide) 12.5 mg PO BIDDIURETIC ELVIN Last Admin: 06/28/17 13:56 Dose: 12.5 mg Levofloxacin/Dextrose 750 mg/ (Premix) 150 mls @ 100 mls/hr IV ONETIME ONE Stop: 06/26/17 09:09 Last Admin: 06/26/17 08:44 Dose: 100 mls/hr Levofloxacin/Dextrose 500 mg/ (Premix) 100 mls @ 100 mls/hr IV Q24H ELVIN Last Admin: 06/27/17 09:07 Dose: 100 mls/hr Magnesium Sulfate 2 gm/ Premix 50 mls @ 50 mls/hr IV ONETIME ONE Stop: 06/27/17 09:59 Last Admin: 06/27/17 10:30 Dose: 50 mls/hr Levofloxacin/Dextrose 750 mg/ (Premix) 150 mls @ 100 mls/hr IV Q24H ELVIN Last Admin: 06/29/17 09:06 Dose: 100 mls/hr Levofloxacin/Dextrose 250 mg/ (Premix) 50 mls @ 50 mls/hr IV ONETIME ONE Stop: 06/27/17 13:43 Last Admin: 06/27/17 13:15 Dose: Not Given Levofloxacin/Dextrose 750 mg/ (Premix) 150 mls @ 100 mls/hr IV Q48H [facility] Lisinopril (Prinivil) 20 mg PO DAILY [facility] Last Admin: 06/28/17 09:47 Dose: 20 mg Pravastatin Sodium (80 Mg) 0 each PO BEDTIME [facility] Last Admin: 06/28/17 20:22 Dose: Not Given - Exam Quality Assessment: Reports: Supplemental Oxygen, DVT Prophylaxis General: Reports: Alert, Cooperative, No Acute Distress HEENT: Reports: Pupils Equal, EOMI, Mucous Membr. Moist/[place] Neck: Reports: Supple Lungs: Reports: Clear to Auscultation, Normal Respiratory Effort, Decreased Breath Sounds (bases) Cardiovascular: Reports: Regular Rate, Regular Rhythm, Murmurs GI/Abdominal Exam: Normal Bowel Sounds, Soft, Non-Tender (Male) Exam: Deferred Rectal (Males) Exam: Deferred Extremities: Pedal Edema (trace to 1+ bilat LE, Teds bilat; Rt arm is flacid, he is able to move right leg, rt sided facial droop s/p CVA residual deficits) Neurological: Reports: No New Focal Deficit. Denies: Normal Speech (dysarthria s/p CVA as above) Psy/Mental Status: Reports: Alert, Normal Affect *Q Meaningful Use (DIS) - VTE *Q VTE Criteria *Q: - Stroke *Q Stroke Criteria *Q: - AMI *Q AMI Criteria *Q:
[2017-07-01] MEDS ORDERED: Levofloxacin/Dextrose 5%-Water 750 MG in Premix Bag 1 BAG IV SCH (09:15)
== END 2017-06-30 12:40 | disposition home or self-care (01) | DRG 291 ==
LOC: SUPCPDRO 06:32 → JD.ED 06:32 → JD.MS 09:45
PROVIDERS: ADMIT Internal Medicine; ATTEND Internal Medicine
DX: I13.0 Hypertensive heart and chronic kidney disease with heart failure and stage 1 through stage 4 chronic kidney disease, or unspecified chronic kidney disease (principal); I50.33 Acute on chronic diastolic (congestive) heart failure; I69.351 Hemiplegia and hemiparesis following cerebral infarction affecting right dominant side; D69.3 Immune thrombocytopenic purpura; R74.8 Abnormal levels of other serum enzymes; R00.1 Bradycardia, unspecified; J40 Bronchitis, not specified as acute or chronic; R50.9 Fever, unspecified; R09.02 Hypoxemia; I69.322 Dysarthria following cerebral infarction; N18.3 Chronic kidney disease, stage 3 (moderate); I48.91 Unspecified atrial fibrillation; K59.09 Other constipation; F32.9 Major depressive disorder, single episode, unspecified; E55.9 Vitamin D deficiency, unspecified; H54.7 Unspecified visual loss; R79.89 Other specified abnormal findings of blood chemistry; E78.5 Hyperlipidemia, unspecified; R32 Unspecified urinary incontinence; R15.9 Full incontinence of feces; R33.9 Retention of urine, unspecified; Z66 Do not resuscitate; Z91.81 History of falling; Z51.5 Encounter for palliative care; Z79.01 Long term (current) use of anticoagulants; Z79.82 Long term (current) use of aspirin; Z79.899 Other long term (current) drug therapy
CPT/HCPCS: 36415; 36600; 71010; 71010-26; 80048; 80053; 81001; 82553; 82803; 82962; 83605; 83735; 83880; 84484; 85025; 85379; 85610; 85652; 85730; 86140; 86738; 87040; 87070; 87205; 87641; 87804; 92610-GN; 93005; 93306; 94640; 94760; 96365; 96375; 97110-GP; 97162-GP; 97167-GO; 97530-GO; 99223; 99231; 99239; 99285; 99285-25; A9270-GY; J1940; J1956; J3475; P9612

== ENCOUNTER 2017-10-11 14:22 | Inpatient (IN) | payer SELFPAY ==
[2017-10-11] MEDS ORDERED: Sodium Chloride 0.9% 10 ML Syringe FLUSH PRN (14:32)
--- NOTE | 2017-10-11 14:42 | EDM.PDOC ---
ED HPI GENERAL MEDICAL PROBLEM - General Chief Complaint: Cardiovascular Problem Stated Complaint: [facility] Time Seen by Provider: 10/11/17 14:30 Source of Information: Reports: EMS, Residential Records History Limitations: Reports: Altered Mental Status (Confused) - History of Present Illness INITIAL COMMENTS - FREE TEXT/NARRATIVE: Patient is a 82-year-old male from [facility] with a history of CVA with right-sided deficit. Presents to the ED with concerns of hypoxia and fever. Per EMS patient's O2 sats on nasal cannula 4 L/m with 73%. Placed on nonrebreather 15 L/m. Patient's O2 sats increased to 96%. Patient is only alert to self. Does not offer any complaints this point. Patient's CODE STATUS is DNR/DNI. Additional history includes: Anemia, coronary disease with FL, heart failure, A. fib, DVT right upper extremity, major depressive disorder, urinary retention , dysphagia, hypertension, mixed hyperlipidemia. Current medications include Eliquis 2.5 mg twice daily, Lasix 20 mg every day, 40 mg every day, lisinopril 20 mg every day, amlodipine 10 mg every day, pravastatin 80 mg at at bedtime, and also supplemental oxygen per nasal cannula when necessary to keep sats greater than 90%. In addition he is on Zoloft 50 mg every day and vitamin D3. - Related Data Allergies Allergy/AdvReac Type Severity Reaction Status Date / Time No Known Allergies Allergy Verified 06/26/17 06:41 Home Meds: Home Meds Lisinopril 20 mg PO DAILY 06/15/14 [History] Sertraline [Zoloft] 50 mg PO DAILY 06/15/14 [History] Apixaban [Eliquis] 2.5 mg PO BID 06/26/17 [History] Aspirin [Aris Chewable Aspirin] 81 mg PO DAILY 06/26/17 [History] Dextran 70/Hypromellose [Artificial Tears] 1 drop EYEBOTH TID 06/26/17 [History] Pravastatin Sodium 80 mg PO BEDTIME 06/26/17 [History] Sennosides [Senna] 8.6 mg PO BID 06/26/17 [History] amLODIPine [Norvasc] 10 mg PO DAILY 06/26/17 [History] Albuterol [IJD: Albuterol] 2.5 mg NEB Q6HRRT PRN #1 box 06/30/17 [Rx] Benzonatate [Tessalon Perles] 100 mg PO TID PRN #20 cap 06/30/17 [Rx] Furosemide [Lasix] 20 mg PO DAILY #30 06/30/17 [Rx] Furosemide [Lasix] 40 mg PO DAILY #30 tablet 06/30/17 [Rx] guaiFENesin [Mucinex] 600 mg PO BID #30 tab.er 06/30/17 [Rx] Cholecalciferol (Vitamin D3) [Vitamin D3] 5,000 unit PO DAILY 10/11/17 [History] Oxygen 1 dose IH ASDIRECTED 10/11/17 [History] Past Medical History HEENT History: Reports: Impaired Vision, Other (See Below) Other HEENT History: dry eyes Cardiovascular History: Reports: Afib, Heart Failure, High Cholesterol, Hypertension, Other (See Below) Other Cardiovascular History: cardiomegaly, bradycardia Respiratory History: Reports: Other (See Below) Other Respiratory History: positive TB reactor Gastrointestinal History: Reports: Chronic Constipation, Fecal Incontinence Other Gastrointestinal History: used laxitives and was incontinent per Genitourinary History: Reports: Chronic Renal Insuffiency, Retention, Urinary, Urinary Incontinence Other Genitourinary History: ? 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 TB 50+ years ago - Past Surgical History Neurological Surgical History: Reports: Other (See Below) Social & Family History - Family History Family Medical History: Noncontributory - Tobacco Use Smoking Status *Q: Never Smoker Second Hand Smoke Exposure: No - Alcohol Use Days Per Week of Alcohol Use: 0 - Recreational Drug Use Recreational Drug Use: No - Living Situation & Occupation Living situation: Reports: Extended Care Facility Occupation: Retired (Currently residing in [place]) ED ROS GENERAL - Review of Systems Review Of Systems: See Below ED EXAM, GENERAL - Physical Exam Exam: See Below Exam Limited By: No Limitations General Appearance: Alert, WD/WN, No Apparent Distress Ears: Hearing Grossly Normal Nose: Normal Inspection Throat/Mouth: Other (aphasia chronic) Neck: Normal Inspection, Supple, Non-Tender Respiratory/Chest: No Accessory Muscle Use, Chest Non-Tender, Prolonged Expiration, Other (Crackles noted to the right middle/lower lobe.). No: Accessory Muscle Use Cardiovascular: Normal Peripheral Pulses, Systolic Murmur, Irregularly Irregular Peripheral Pulses: 3+: Radial (L), Radial (R) GI/Abdominal: Normal Bowel Sounds, Soft, Non-Tender, No Organomegaly, No Distention Back Exam: Normal Inspection Extremities: Pedal Edema, Other (Ulcer prevention boots on the right left foot. Significance pedal edema noted to the right in comparison the left. No pain with pain to the posterior aspect of calf. 1+ edema to the right lower leg trace to 1+ left lower leg.). No: No Pedal Edema Neurological: Alert, Oriented (To self), CN II-XII Intact, Normal Cognition ( Per staff) Psychiatric: Normal Affect, Normal Mood Course - Vital Signs Last Recorded V/S: Last Vital Signs Temp 98.9 F 10/12/17 04:00 Pulse 56 L 10/12/17 08:25 Resp 25 H 10/12/17 08:25 BP 126/53 L 10/12/17 09:10 Pulse Ox 80 L 10/12/17 08:30 - Orders/Labs/Meds Orders: Active Orders 24 hr Category Date Time Status Insert Patterson Catheter [Insert Urinary Catheter] [OM.PC] Care 10/11/17 15:40 Ordered Stat Peripheral IV Care [RC] Q2HR Care 10/11/17 14:33 Active CULTURE BLOOD [BC] Stat Lab 10/11/17 14:50 Received CULTURE BLOOD [BC] Stat Lab 10/11/17 14:55 Received CULTURE URINE [RM] Stat Lab 10/11/17 15:45 Results Sodium Chloride 0.9% [Saline Flush] Med 10/11/17 14:32 Active 10 ml FLUSH ASDIRECTED PRN Blood Culture x2 Reflex Set [OM.PC] Stat Oth 10/11/17 14:31 Ordered Peripheral IV Insertion Adult [OM.PC] Stat Oth 10/11/17 14:32 Ordered Medication Orders Acetaminophen (Tylenol) 650 mg PO Q4H PRN PRN Reason: Pain (Mild 1-3)/fever Hydrocodone Bitart/Acetaminophen (Breda 325-5 Mg) 1 tab PO Q4H PRN PRN Reason: Pain (moderate 4-6) Albuterol/Ipratropium (Duoneb 3.0-0.5 Mg/3 Ml) 3 ml NEB Q4H PRN PRN Reason: Shortness Of Breath/wheezing Last Admin: 10/12/17 06:18 Dose: 3 ml Amlodipine Besylate (Norvasc) 10 mg PO DAILY [facility] Last Admin: 10/12/17 09:10 Dose: 10 mg Apixaban (Eliquis) 2.5 mg PO BID [facility] Last Admin: 10/12/17 09:06 Dose: Admin: 10/11/17 20:43 Dose: Artificial Tears (Isopto Tears 0.5% Ophth Soln) 0 ml EYEBOTH TID [facility] Last Admin: 10/12/17 09:09 Dose: 1 drop Admin: 10/11/17 21:51 Dose: 2 drop Aspirin (Halfprin) 81 mg PO DAILY [facility] Last Admin: 10/12/17 09:10 Dose: Benzonatate (Tessalon Perles) 100 mg PO TID PRN PRN Reason: Cough Bisacodyl (Dulcolax) 5 mg PO DAILY PRN PRN Reason: Constipation Cholecalciferol (Vitamin D3) 5,000 units PO DAILY [facility] Last Admin: 10/12/17 09:08 Dose: 5,000 units Docusate Sodium (Colace) 100 mg PO BID PRN PRN Reason: Constipation Famotidine (Pepcid) 20 mg IVPUSH DAILY [facility] Last Admin: 10/12/17 09:07 Dose: 20 mg Furosemide (Lasix) 40 mg PO DAILY [facility] Last Admin: 10/12/17 09:09 Dose: 40 mg Furosemide (Lasix) 20 mg PO DAILY@1400 [facility] Guaifenesin (Mucinex) 600 mg PO BID [facility] Last Admin: 10/12/17 09:09 Dose: 600 mg Admin: 10/11/17 21:52 Dose: 600 mg Hydralazine HCl (Apresoline) 10 mg IVPUSH Q4H PRN PRN Reason: Hypertension Promethazine HCl 6.25 mg/ (Sodium Chloride) 50.25 mls @ 100 mls/hr IV Q6H PRN PRN Reason: Nausea/Vomiting Azithromycin 500 mg/ Sodium (Chloride) 250 mls @ 250 mls/hr IV Q24H [facility] Last Admin: 10/12/17 09:06 Dose: 250 mls/hr Ceftriaxone Sodium 1 gm/ (Sodium Chloride) 100 mls @ 200 mls/hr IV Q24H [facility] Last Admin: 10/12/17 09:06 Dose: 200 mls/hr Lisinopril (Prinivil) 20 mg PO DAILY [facility] Last Admin: 10/12/17 09:10 Dose: 20 mg Lorazepam (Ativan) 2 mg IVPUSH Q4H PRN PRN Reason: Seizures Lorazepam (Ativan) 0.25 mg IV Q6H PRN PRN Reason: Anxiety Last Admin: 10/12/17 01:07 Dose: 0.25 mg Admin: 10/11/17 19:04 Dose: 0.25 mg Magnesium Sulfate (Pharmacy To Dose - Magnesium Replacement) 1 dose .XX ASDIRECTED [facility] Metoprolol Tartrate (Lopressor) 5 mg IVPUSH Q4H PRN PRN Reason: Tachycardia Morphine Sulfate (Morphine) 0.5 mg IVPUSH Q2H PRN PRN Reason: Pain (severe 7-10) Stop: 10/12/17 18:23 Ondansetron HCl (Zofran) 4 mg IV Q6H PRN PRN Reason: Nausea/Vomiting Polyethylene Glycol (Miralax) 17 gm PO DAILY PRN PRN Reason: Constipation Potassium Chloride (Pharmacy To Dose - Potassium Replacement) 1 dose .XX ASDIRECTED [facility] Saccharomyces Boulardii (Florastor) 250 mg PO BID [facility] Last Admin: 10/12/17 09:07 Dose: 250 mg Senna (Senna) 8.6 mg PO BID [facility] Last Admin: 10/12/17 09:09 Dose: 8.6 mg Admin: 10/11/17 21:52 Dose: 8.6 mg Senna/Docusate Sodium (Senna Plus) 1 tab PO BID PRN PRN Reason: Constipation Sertraline HCl (Zoloft) 50 mg PO DAILY [facility] Last Admin: 10/12/17 09:09 Dose: 50 mg Simvastatin (Zocor) 20 mg PO BEDTIME [facility] Last Admin: 10/11/17 21:52 Dose: 20 mg Sodium Chloride (Saline Flush) 10 ml FLUSH ASDIRECTED PRN PRN Reason: Keep Vein Open Last Admin: 10/11/17 16:10 Dose: 10 ml Temazepam (Restoril) 7.5 mg PO BEDTIME PRN PRN Reason: Sleep Labs: Laboratory Tests 10/11/17 10/11/17 10/11/17 Range/Units 14:45 14:45 14:45 WBC 9.25 H (4.23-9.07) K/mm3 RBC 3.51 L (4.63-6.08) M/mm3 Hgb 9.5 L (13.7-17.5) gm/L Hct 32.2 L (40.1-51.0) % MCV 91.7 (79.0-92.2) fl MCH 27.1 (25.7-32.2) pg MCHC 29.5 L (32.2-35.5) g/dl RDW Std Deviation 52.1 H (35.1-43.9) fL Plt Count 173 (163-337) K/mm3 MPV 11.1 (9.4-12.3) fl Neut % (Auto) 78.5 H (34.0-67.9) % Lymph % (Auto) 11.9 L (21.8-53.1) % Porter % (Auto) 8.3 (5.3-12.2) % Eos % (Auto) 1.0 (0.8-7.0) Baso % (Auto) 0.2 (0.1-1.2) % Neut # (Auto) 7.26 H (1.78-5.38) K/mm3 Lymph # (Auto) 1.10 L (1.32-3.57) K/mm3 Porter # (Auto) 0.77 (0.30-0.82) K/mm3 Eos # (Auto) 0.09 (0.04-0.54) K/mm3 Baso # (Auto) 0.02 (0.01-0.08) K/mm3 Manual Slide Review Abnormal smear PT 10.9 (8.0-13.0) SECONDS INR 1.02 APTT 27 (22-36) SECONDS D-Dimer, Quantitative (0.19-0.59) mg/L Puncture Site ABG pH (7.35-7.45) ABG pCO2 (35.0-45.0) mmHg ABG pO2 (80.0-100.0) mmHg ABG HCO3 (22.0-26.0) meq/L ABG O2 Saturation (96.0-97.0) % ABG Base Excess (-2-2.0) Alan Test A-a Gradient mmHg O2 Delivery Device Oxygen Flow Rate FiO2 (21.00-100.00) % Sodium 145 (136-145) mEq/L Potassium 4.3 (3.5-5.1) mEq/L Chloride 103 (98-107) mEq/L Carbon Dioxide 34 H (21-32) mEq/L Anion Gap 12.3 (5-15) BUN 33 H (7-18) mg/dL Creatinine 1.7 H (0.7-1.3) mg/dL Est Cr Clr Drug Dosing TNP Estimated GFR (MDRD) 39 (>60) mL/min BUN/Creatinine Ratio 19.4 H (14-18) Glucose 99 (83-115) mg/dL Lactic Acid (0.4-2.0) mmol/L Calcium 8.9 (8.5-10.1) mg/dL Total Bilirubin 0.5 (0.2-1.0) mg/dL AST 26 (15-37) U/L ALT 22 (16-63) U/L Alkaline Phosphatase 79 (46-116) U/L Troponin I 0.199 H* (0.00-0.056) ng/mL C-Reactive Protein 3.7 H* (<1.0) mg/dL NT-Pro-B Natriuret Pep (0-450) pg/mL Total Protein 7.8 (6.4-8.2) g/dl Albumin 3.3 L (3.4-5.0) g/dl Globulin 4.5 gm/dL Albumin/Globulin Ratio 0.7 L (1-2) Urine Color (Yellow) Urine Appearance (Clear) Urine pH (5.0-8.0) Ur Specific Hutchinson (1.005-1.030) Urine Protein (Negative) Urine Glucose (UA) (Negative) Urine Ketones (Negative) Urine Occult Blood (Negative) Urine Nitrite (Negative) Urine Bilirubin (Negative) Urine Urobilinogen (0.2-1.0) Ur Leukocyte Esterase (Negative) Urine RBC (0-5) /hpf Urine WBC (0-5) /hpf Ur Epithelial Cells (0-5) /hpf Urine Bacteria (FEW) /hpf Hyaline Casts (0-5) /lpf Urine Mucus (FEW) /hpf 10/11/17 10/11/17 10/11/17 Range/Units 14:45 14:45 14:45 WBC (4.23-9.07) K/mm3 RBC (4.63-6.08) M/mm3 Hgb (13.7-17.5) gm/L Hct (40.1-51.0) % MCV (79.0-92.2) fl MCH (25.7-32.2) pg MCHC (32.2-35.5) g/dl RDW Std Deviation (35.1-43.9) fL Plt Count (163-337) K/mm3 MPV (9.4-12.3) fl Neut % (Auto) (34.0-67.9) % Lymph % (Auto) (21.8-53.1) % Porter % (Auto) (5.3-12.2) % Eos % (Auto) (0.8-7.0) Baso % (Auto) (0.1-1.2) % Neut # (Auto) (1.78-5.38) K/mm3 Lymph # (Auto) (1.32-3.57) K/mm3 Porter # (Auto) (0.30-0.82) K/mm3 Eos # (Auto) (0.04-0.54) K/mm3 Baso # (Auto) (0.01-0.08) K/mm3 Manual Slide Review PT (8.0-13.0) SECONDS INR APTT (22-36) SECONDS D-Dimer, Quantitative 1.76 H (0.19-0.59) mg/L Puncture Site ABG pH (7.35-7.45) ABG pCO2 (35.0-45.0) mmHg ABG pO2 (80.0-100.0) mmHg ABG HCO3 (22.0-26.0) meq/L ABG O2 Saturation (96.0-97.0) % ABG Base Excess (-2-2.0) Alan Test A-a Gradient mmHg O2 Delivery Device Oxygen Flow Rate FiO2 (21.00-100.00) % Sodium (136-145) mEq/L Potassium (3.5-5.1) mEq/L Chloride (98-107) mEq/L Carbon Dioxide (21-32) mEq/L Anion Gap (5-15) BUN (7-18) mg/dL Creatinine (0.7-1.3) mg/dL Est Cr Clr Drug Dosing Estimated GFR (MDRD) (>60) mL/min BUN/Creatinine Ratio (14-18) Glucose (83-115) mg/dL Lactic Acid 1.1 (0.4-2.0) mmol/L Calcium (8.5-10.1) mg/dL Total Bilirubin (0.2-1.0) mg/dL AST (15-37) U/L ALT (16-63) U/L Alkaline Phosphatase (46-116) U/L Troponin I (0.00-0.056) ng/mL C-Reactive Protein (<1.0) mg/dL NT-Pro-B Natriuret Pep 2790 H (0-450) pg/mL Total Protein (6.4-8.2) g/dl Albumin (3.4-5.0) g/dl Globulin gm/dL Albumin/Globulin Ratio (1-2) Urine Color (Yellow) Urine Appearance (Clear) Urine pH (5.0-8.0) Ur Specific Hutchinson (1.005-1.030) Urine Protein (Negative) Urine Glucose (UA) (Negative) Urine Ketones (Negative) Urine Occult Blood (Negative) Urine Nitrite (Negative) Urine Bilirubin (Negative) Urine Urobilinogen (0.2-1.0) Ur Leukocyte Esterase (Negative) Urine RBC (0-5) /hpf Urine WBC (0-5) /hpf Ur Epithelial Cells (0-5) /hpf Urine Bacteria (FEW) /hpf Hyaline Casts (0-5) /lpf Urine Mucus (FEW) /hpf 10/11/17 10/11/17 Range/Units 15:21 15:45 WBC (4.23-9.07) K/mm3 RBC (4.63-6.08) M/mm3 Hgb (13.7-17.5) gm/L Hct (40.1-51.0) % MCV (79.0-92.2) fl MCH (25.7-32.2) pg MCHC (32.2-35.5) g/dl RDW Std Deviation (35.1-43.9) fL Plt Count (163-337) K/mm3 MPV (9.4-12.3) fl Neut % (Auto) (34.0-67.9) % Lymph % (Auto) (21.8-53.1) % Porter % (Auto) (5.3-12.2) % Eos % (Auto) (0.8-7.0) Baso % (Auto) (0.1-1.2) % Neut # (Auto) (1.78-5.38) K/mm3 Lymph # (Auto) (1.32-3.57) K/mm3 Porter # (Auto) (0.30-0.82) K/mm3 Eos # (Auto) (0.04-0.54) K/mm3 Baso # (Auto) (0.01-0.08) K/mm3 Manual Slide Review PT (8.0-13.0) SECONDS INR APTT (22-36) SECONDS D-Dimer, Quantitative (0.19-0.59) mg/L Puncture Site Lt radial ABG pH 7.42 (7.35-7.45) ABG pCO2 54.1 H (35.0-45.0) mmHg ABG pO2 51.0 L (80.0-100.0) mmHg ABG HCO3 34.6 H (22.0-26.0) meq/L ABG O2 Saturation 87.1 L (96.0-97.0) % ABG Base Excess 9.3 H (-2-2.0) Alan Test Positive A-a Gradient 163 mmHg O2 Delivery Device Nasal cannula Oxygen Flow Rate 6.0 FiO2 44.00 (21.00-100.00) % Sodium (136-145) mEq/L Potassium (3.5-5.1) mEq/L Chloride (98-107) mEq/L Carbon Dioxide (21-32) mEq/L Anion Gap (5-15) BUN (7-18) mg/dL Creatinine (0.7-1.3) mg/dL Est Cr Clr Drug Dosing Estimated GFR (MDRD) (>60) mL/min BUN/Creatinine Ratio (14-18) Glucose (83-115) mg/dL Lactic Acid (0.4-2.0) mmol/L Calcium (8.5-10.1) mg/dL Total Bilirubin (0.2-1.0) mg/dL AST (15-37) U/L ALT (16-63) U/L Alkaline Phosphatase (46-116) U/L Troponin I (0.00-0.056) ng/mL C-Reactive Protein (<1.0) mg/dL NT-Pro-B Natriuret Pep (0-450) pg/mL Total Protein (6.4-8.2) g/dl Albumin (3.4-5.0) g/dl Globulin gm/dL Albumin/Globulin Ratio (1-2) Urine Color Light yellow (Yellow) Urine Appearance Clear (Clear) Urine pH 6.0 (5.0-8.0) Ur Specific Hutchinson 1.020 (1.005-1.030) Urine Protein Negative (Negative) Urine Glucose (UA) Negative (Negative) Urine Ketones Negative (Negative) Urine Occult Blood 1+ H (Negative) Urine Nitrite Negative (Negative) Urine Bilirubin Negative (Negative) Urine Urobilinogen 0.2 (0.2-1.0) Ur Leukocyte Esterase Negative (Negative) Urine RBC 0-5 (0-5) /hpf Urine WBC 0-5 (0-5) /hpf Ur Epithelial Cells 0-5 (0-5) /hpf Urine Bacteria Not seen (FEW) /hpf Hyaline Casts 0-5 (0-5) /lpf Urine Mucus Not seen (FEW) /hpf Meds: Medications Generic Name Dose Route Start Last Admin Trade Name Freq PRN Reason Stop Dose Admin Acetaminophen 650 mg 10/11/17 18:21 Tylenol PO Q4H PRN Pain (Mild 1-3)/fever Hydrocodone Bitart/Acetaminophen 1 tab 10/11/17 18:21 Breda 325-5 Mg PO Q4H PRN Pain (moderate 4-6) Albuterol/Ipratropium 3 ml 10/11/17 18:24 10/12/17 06:18 Duoneb 3.0-0.5 Mg/3 Ml NEB 3 ml Q4H PRN Administration Shortness Of Breath/wheezing Amlodipine Besylate 10 mg 10/12/17 09:00 10/12/17 09:10 Norvasc PO 10 mg DAILY [facility] Administration Apixaban 2.5 mg 10/11/17 21:00 10/12/17 09:06 Eliquis PO Not Given BID [facility] Artificial Tears 0 ml 10/11/17 21:00 10/12/17 09:09 Isopto Tears 0.5% Ophth Soln EYEBOTH 1 drop TID [facility] Administration Aspirin 81 mg 10/12/17 09:00 10/12/17 09:10 Halfprin PO Not Given DAILY [facility] Benzonatate 100 mg 10/11/17 18:18 Tessalon Perles PO TID PRN Cough Bisacodyl 5 mg 10/11/17 18:24 Dulcolax PO DAILY PRN Constipation Cholecalciferol 5,000 units 10/12/17 09:00 10/12/17 09:08 Vitamin D3 PO 5,000 units DAILY [facility] Administration Docusate Sodium 100 mg 10/11/17 18:24 Colace PO BID PRN Constipation Famotidine 20 mg 10/12/17 09:00 10/12/17 09:07 Pepcid IVPUSH 20 mg DAILY [facility] Administration Furosemide 40 mg 10/12/17 09:00 10/12/17 09:09 Lasix PO 40 mg DAILY [facility] Administration Furosemide 20 mg 10/12/17 14:00 Lasix PO DAILY@1400 [facility] Guaifenesin 600 mg 10/11/17 21:00 10/12/17 09:09 Mucinex PO 600 mg BID [facility] Administration Hydralazine HCl 10 mg 10/11/17 18:18 Apresoline IVPUSH Q4H PRN Hypertension Promethazine HCl 6.25 mg/ 50.25 mls @ 100 mls/hr 10/11/17 18:24 Sodium Chloride IV Q6H PRN Nausea/Vomiting Azithromycin 500 mg/ Sodium 250 mls @ 250 mls/hr 10/12/17 09:00 10/12/17 09: 06 Chloride IV 250 mls/hr Q24H [facility] Administration Ceftriaxone Sodium 1 gm/ 100 mls @ 200 mls/hr 10/12/17 09:00 10/12/17 09:06 Sodium Chloride IV 200 mls/hr Q24H [facility] Administration Lisinopril 20 mg 10/12/17 09:00 10/12/17 09:10 Prinivil PO 20 mg DAILY [facility] Administration Lorazepam 2 mg 10/11/17 18:18 Ativan IVPUSH Q4H PRN Seizures Lorazepam 0.25 mg 10/11/17 18:24 10/12/17 01:07 Ativan IV 0.25 mg Q6H PRN Administration Anxiety Magnesium Sulfate 1 dose 10/11/17 18:30 Pharmacy To Dose - Magnesium Replacement .XX ASDIRECTED [facility] Metoprolol Tartrate 5 mg 10/11/17 18:18 Lopressor IVPUSH Q4H PRN Tachycardia Morphine Sulfate 0.5 mg 10/11/17 18:21 Morphine IVPUSH 10/12/17 18:23 Q2H PRN Pain (severe 7-10) Ondansetron HCl 4 mg 10/11/17 18:24 Zofran IV Q6H PRN Nausea/Vomiting Polyethylene Glycol 17 gm 10/11/17 18:24 Miralax PO DAILY PRN Constipation Potassium Chloride 1 dose 10/11/17 18:30 Pharmacy To Dose - Potassium Replacement .XX ASDIRECTED [facility] Saccharomyces Boulardii 250 mg 10/12/17 09:00 10/12/17 09:07 Florastor PO 250 mg BID [facility] Administration Senna 8.6 mg 10/11/17 21:00 10/12/17 09:09 Senna PO 8.6 mg BID [facility] Administration Senna/Docusate Sodium 1 tab 10/11/17 18:24 Senna Plus PO BID PRN Constipation Sertraline HCl 50 mg 10/12/17 09:00 10/12/17 09:09 Zoloft PO 50 mg DAILY [facility] Administration Simvastatin 20 mg 10/11/17 21:00 10/11/17 21:52 Zocor PO 20 mg BEDTIME [facility] Administration Sodium Chloride 10 ml 10/11/17 14:32 10/11/17 16:10 Saline Flush FLUSH 10 ml ASDIRECTED PRN Administration Keep Vein Open Temazepam 7.5 mg 10/11/17 18:24 Restoril PO BEDTIME PRN Sleep Discontinued Medications Generic Name Dose Route Start Last Admin Trade Name Freq PRN Reason Stop Dose Admin Sodium Chloride 1,000 mls @ 150 mls/hr 10/11/17 16:30 10/11/17 16:39 Normal Saline IV 150 mls/hr ASDIRECTED [facility] Administration Sodium Chloride 1,000 mls @ 250 mls/hr 10/11/17 16:56 10/11/17 18:58 Normal Saline IV 10/11/17 20:55 Not Given .BOLUS ONE Azithromycin 500 mg/ Sodium 250 mls @ 250 mls/hr 10/11/17 17:01 10/11/17 17: 25 Chloride IV 10/11/17 18:00 250 mls/hr ONETIME ONE Administration Ceftriaxone Sodium 2 gm/ 100 mls @ 200 mls/hr 10/11/17 17:01 10/11/17 18:56 Sodium Chloride IV 10/11/17 17:30 200 mls/hr ONETIME ONE Administration Sodium Chloride Confirm 10/11/17 17:23 10/11/17 17:27 Normal Saline Administered 10/11/17 17:24 Not Given Dose 100 mls @ as directed .ROUTE .STK-MED ONE Iopamidol 100 ml 10/11/17 16:37 10/11/17 19:53 Isovue-370 (76%) IVPUSH 10/11/17 16:38 Not Given ONETIME ONE Pantoprazole Sodium 40 mg 10/11/17 18:24 10/11/17 20:55 Protonix Iv .XX 10/11/17 18:25 Not Given ONETIME ONE Pantoprazole Sodium 40 mg 10/11/17 18:24 10/11/17 21:53 Protonix Iv IV 10/11/17 18:25 40 mg ONETIME ONE Administration - Re-Assessments/Exams Free Text/Narrative Re-Assessment/Exam: Patient is afrebrile with admission. VSS stable. Peripheral IV started. Initial labs and studies will include: CBC, chem 14, blood cultures 2, UA, influenza A&B screen, coag studies, lactic acid, pro-BNP, troponin, UA, chest x- ray, ddimer, and EKG. 10/11/17 14:39 Per nursing staff they suction some white phlegm from the posterior pharynx. Patient sounds better. On initial exam it sounded as patient had secretions to the posterior pharynx. Placed on NC 5lpm O2 sats 90%. Labs reviewed: White blood cell count 9.25, hemoglobin 9.5, platelet count was 73, neutrophil percentage is mildly elevated at 70.5, neutrophil #7.26, d-dimer 1.76, sodium 145, potassium 4.3, CO2 34, albumin 33, creatinine 1.7, glucose 99 , troponin elevated 0.199, CRP 3.7, proBNP is 2790, and UA did not reveal any concerning findings for infection. Occult blood 1+. Troponin elevated most likely secondary to chronic renal disease. We'll trend, thus ordered second troponin to be ordered in 3 hours from previous blood draw. Chest x-ray shows right middle lower lobe findings concerning for pneumonia versus atelectasis, minimal pulmonary vascular congestion, cardiomegaly is present, with findings concerning for also mucous plug. EKG atrial fibrillation at a rate of 53. Discussed CXR with Dr. Khan. Suggested CT of the chest with IV contrast although CR is 1.7. IV fluids started to hydrate up. 10/11/17 17:[address] Jasso. He has agreed to take the patient. Requested patient be admitted to the ICU and agreed to start Rocephin 2 g IV and also azithromycin 500 mg IV. In addition suggested IV fluids to hydrate. CT chest impression: No findings of pulmonary embolism. Small left-sided pleural effusion with small to moderate sized right-sided pleural effusion. Minimal compressive atelectasis within the left base. Consolidation within the right mid and lower lung most likely due to atelectasis but difficult to exclude infection within the right mid lung. Groundglass appearance likely representing mild pulmonary vascular congestion. Other incidental findings. Departure - Departure Time of Disposition: 17:03 Disposition: Admitted As Inpatient 66 Condition: Poor Clinical Impression: Confusion state, Hypoxia, Elevated troponin Pneumonia Qualifiers: Pneumonia type: due to unspecified organism Laterality: right Lung location: lower lobe of lung Qualified Code(s): J18.1 - Lobar pneumonia, unspecified organism Chronic kidney disease Qualifiers: Chronic kidney disease stage: unspecified stage Qualified Code(s): N18.9 - Chronic kidney disease, unspecified - My Orders Last 24 Hours: My Active Orders 10/11/17 14:31 Blood Culture x2 Reflex Set [OM.PC] Stat 10/11/17 14:32 Sodium Chloride 0.9% [Saline Flush] 10 ml FLUSH ASDIRECTED PRN Peripheral IV Insertion Adult [OM.PC] Stat 10/11/17 14:33 Peripheral IV Care [RC] Q2HR 10/11/17 14:50 CULTURE BLOOD [BC] Stat 10/11/17 14:55 CULTURE BLOOD [BC] Stat 10/11/17 15:40 Insert Patterson Catheter [Insert Urinary Catheter] [OM.PC] Stat 10/11/17 15:45 CULTURE URINE [RM] Stat - Assessment/Plan Last 24 Hours: My Active Orders 10/11/17 14:31 Blood Culture x2 Reflex Set [OM.PC] Stat 10/11/17 14:32 Sodium Chloride 0.9% [Saline Flush] 10 ml FLUSH ASDIRECTED PRN Peripheral IV Insertion Adult [OM.PC] Stat 10/11/17 14:33 Peripheral IV Care [RC] Q2HR 10/11/17 14:50 CULTURE BLOOD [BC] Stat 10/11/17 14:55 CULTURE BLOOD [BC] Stat 10/11/17 15:40 Insert Patterson Catheter [Insert Urinary Catheter] [OM.PC] Stat 10/11/17 15:45 CULTURE URINE [RM] Stat
[2017-10-11] MEDS ORDERED: Sodium Chloride 0.9% 1,000 ML IV SCH (16:30)
[2017-10-11] MEDS ORDERED: Iopamidol 755 Mg/ML 100 ML Bottle IVPUSH ONE (16:37)
--- NOTE | 2017-10-11 16:38 | CR ---
Chest: Portable view of the chest was obtained. Comparison: Prior chest x-ray of 06/30/17. Heart is enlarged. Patchy increased density is noted within the right chest. Findings most likely represent a combination of pneumonia and atelectasis. Possible small right sided pleural effusion is also noted. Impression: 1. Stable cardiomegaly. 2. Increased density within the right lung most likely due to combination of atelectasis and pneumonia and possible small right sided pleural effusion. Diagnostic code #3
[2017-10-11] MEDS ORDERED: Sodium Chloride 0.9% 1,000 ML IV ONE (16:56)
[2017-10-11] MEDS ORDERED: cefTRIAXone 2 GM in Sodium Chloride 0.9% 100 ML IV ONE (17:01)
[2017-10-11] MEDS ORDERED: Azithromycin 500 MG in Sodium Chloride 0.9% 250 ML IV ONE (17:01)
--- NOTE | 2017-10-11 17:13 | CT ---
CT chest Technique: Multiple axial sections were obtained through the chest. Intravenous contrast was utilized. Study has been performed as a pulmonary angiogram protocol. Comparison: Recent chest x-ray performed on the same day (3:45 PM). No prior chest CT. Findings: Heart is enlarged. Small to moderate sized right sided pleural effusion is seen with small left-sided pleural effusion. Minimal compressive type atelectasis is noted within the left lung base secondary to the pleural effusion. Hazy groundglass appearance is seen most likely due to mild pulmonary vascular congestion. Focal consolidation is seen within right lung base as well as right mid lung mostly having the appearance of atelectasis although difficult to exclude infection within the right midlung. Diffuse atherosclerotic calcification is noted within the thoracic aorta as well as diffuse coronary artery calcification. Mild degenerative change is noted within the spine. Impression: 1. No findings of pulmonary embolism. 2. Small left-sided pleural effusion with small to moderate sized right-sided pleural effusion. 3. Minimal compressive atelectasis within the left base. Consolidation within the right mid and lower lung most likely due to atelectasis but difficult to exclude infection within the right midlung. 4. Groundglass appearance likely representing mild pulmonary vascular congestion. 5. Other incidental findings. Diagnostic code #3
[2017-10-11] MEDS ORDERED: Sodium Chloride 0.9% 100 ML ONE (17:23)
--- NOTE | 2017-10-11 18:14 | PCM.HP ---
H&P History of Present Illness - General Date of Service: 10/11/17 Admit Problem/Dx: Admission Diagnosis/Problem Admission Diagnosis/Problem Respiratory failure Source of Information: Patient, Old Records, Provider, RN Notes Reviewed History Limitations: Reports: Physical Impairment, Respiratory Distress - History of Present Illness Initial Comments - Free Text/Narative: This is an 82 yo elderly white male with past medical hx/o Impaired Vision, Atrial Fibrillation on Eliquis, HTN, HLD, Constipation, HF with Preserved EF 55- 60%, Fecal Incontinence, Hx/o Bradycardia, CKD/Renal Insufficiency, Urinary Retention /Incontinence, CVA S/p Hemaparesis and Dysphagia, Idiopathic, Thrombocytopenia, Vitamin D Deficiency, Depression, and Hx/o TB who comes in with concerns of hypoxia and an elevated temperature of 100.2 subjective fever at [facility]. He was found sating in the low 70's while on 4L NC with crackles and wheezes on pulmonary auscultation. On presentation to ED, he is alert/awake but in respiratory distress. His initial work up shows a CBC remarkable for WBC of 9.25, RBC of 3.5, hematocrit of 32.2, MCH of 29.5, RDW of 52.1, neutrophils of 78.5%, and lymphocytes of 11.9 %. ABG shows pH of 7.42, PCO2 of 51.1%, PO2 of 51, HCO3 of 34.6, O2 saturation of 87.1 on 6 L nasal cannula O Marcel FiO2 of 44%. his chemistry is remarkable for carbon dioxide 34, BUN of 33, creatinine 1.7, troponin of 0.199, CRP of 2.7 , proBNP of 20/7/90, and albumin of 3.3. His UA is negative for UTI. his chest x -ray report reads increased density within the right lung most likely due to combination of atelectasis and pneumonia and possible small right sided pleural effusion. chest CT scan report reads no findings of pulmonary and embolism. Small left-sided pleural effusion with a small to moderate sized right-sided pleural effusion. Minimal compressive atelectasis within the left base. Consolidation within the right mid lung and lower lung most likely due to atelectasis but difficult to exclude infection within the right mid lung. Ground glass appearance likely representing mild pulmonary vascular congestion. Patient is being admitted for acute respiratory failure, atelectasis and bilateral pleural effusion. He is DNR/DNI . - Related Data Allergies/Adverse Reactions: Allergies Allergy/AdvReac Type Severity Reaction Status Date / Time No Known Allergies Allergy Verified 06/26/17 06:41 Home Medications: Home Meds Lisinopril 20 mg PO DAILY 06/15/14 [History] Sertraline [Zoloft] 50 mg PO DAILY 06/15/14 [History] Apixaban [Eliquis] 2.5 mg PO BID 06/26/17 [History] Aspirin [Aris Chewable Aspirin] 81 mg PO DAILY 06/26/17 [History] Dextran 70/Hypromellose [Artificial Tears] 1 drop EYEBOTH TID 06/26/17 [History] Pravastatin Sodium 80 mg PO BEDTIME 06/26/17 [History] Sennosides [Senna] 8.6 mg PO BID 06/26/17 [History] amLODIPine [Norvasc] 10 mg PO DAILY 06/26/17 [History] Albuterol [IJD: Albuterol] 2.5 mg NEB Q6HRRT PRN #1 box 06/30/17 [Rx] Benzonatate [Tessalon Perles] 100 mg PO TID PRN #20 cap 06/30/17 [Rx] Furosemide [Lasix] 20 mg PO DAILY #30 06/30/17 [Rx] Furosemide [Lasix] 40 mg PO DAILY #30 tablet 06/30/17 [Rx] guaiFENesin [Mucinex] 600 mg PO BID #30 tab.er 06/30/17 [Rx] Cholecalciferol (Vitamin D3) [Vitamin D3] 5,000 unit PO DAILY 10/11/17 [History] Oxygen 1 dose IH ASDIRECTED 10/11/17 [History] Past Medical History HEENT History: Reports: Impaired Vision, Other (See Below) Other HEENT History: dry eyes Cardiovascular History: Reports: Afib, Heart Failure, High Cholesterol, Hypertension, Other (See Below) Other Cardiovascular History: cardiomegaly, bradycardia Respiratory History: Reports: Other (See Below) Other Respiratory History: positive TB reactor Gastrointestinal History: Reports: Chronic Constipation, Fecal Incontinence Other Gastrointestinal History: used laxitives and was incontinent per Genitourinary History: Reports: Chronic Renal Insuffiency, Retention, Urinary, Urinary Incontinence Other Genitourinary History: ? 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 TB 50+ years ago - Past Surgical History Neurological Surgical History: Reports: Other (See Below) Social & Family History - Family History Family Medical History: Noncontributory - Tobacco Use Smoking Status *Q: Never Smoker Used Tobacco, but Quit: Yes Month Tobacco Last Used: unsure Second Hand Smoke Exposure: No - Caffeine Use Caffeine Use: Reports: Coffee - Alcohol Use Days Per Week of Alcohol Use: 0 - Recreational Drug Use Recreational Drug Use: No - Living Situation & Occupation Living situation: Reports: Extended Care Facility Occupation: Retired (Currently residing in [place]) H&P Review of Systems - Review of Systems: Review Of Systems: See Below Review of Systems Comment:: ROS very limited. He is currently on a BIPAP due to respiratory distress. Exam - Exam Exam: See Below - Vital Signs Vital Signs: Last Vital Signs Temp 37.2 C 10/11/17 16:10 Pulse 44 L 10/11/17 16:10 Resp 20 10/11/17 16:10 BP 122/100 H 10/11/17 16:10 Pulse Ox 97 10/11/17 16:10 Weight: 102.829 kg - Exam Quality Assessment: Supplemental Oxygen General: Alert, Moderate Distress HEENT: Conjunctiva Clear, Pupils Equal, Pupils Reactive, TMs Clear, Other ( limited he has BIPAP on) Neck: Supple, Trachea Midline Lungs: Normal Respiratory Effort, Decreased Breath Sounds, Crackles Cardiovascular: Regular Rate, Regular Rhythm, Systolic Murmur GI/Abdominal Exam: Normal Bowel Sounds, Soft, Non-Tender, No Organomegaly, No Distention, No Abnormal Bruit (Male) Exam: Deferred Rectal (Males) Exam: Deferred Back Exam: Normal Inspection, Decreased Range of Motion Extremities: Normal Inspection, Normal Range of Motion, Non-Tender, No Pedal Edema, Normal Capillary Refill Peripheral Pulses: 2+: Posterior Tibial (L), Posterior Tibial (R), Dorsalis Pedis (L), Dorsalis Pedis (R) Skin: Warm, Dry, Intact Neuro Extensive - Mental Status: Alert Neuro Extensive - Motor, Sensory, Reflexes: CN II-XII Intact (very limited: unable to follow commands), Abnormal Gait Psychiatric: Alert, Normal Affect, Normal Mood - Patient Data Result Diagrams: 10/12/17 06:20 10/12/17 06:20 *Q Meaningful Use (ADM) - VTE *Q VTE Criteria *Q: - Stroke *Q Stroke Criteria *Q: - AMI *Q AMI Criteria *Q: Problem List Initiated/Reviewed/Updated: Yes Orders Last 24hrs: Medication Orders Sodium Chloride (Normal Saline) 1,000 mls @ 150 mls/hr IV ASDIRECTED ELVIN Last Admin: 10/11/17 16:39 Dose: 150 mls/hr Sodium Chloride (Normal Saline) 1,000 mls @ 250 mls/hr IV .BOLUS ONE Stop: 10/11/17 20:55 Sodium Chloride (Saline Flush) 10 ml FLUSH ASDIRECTED PRN PRN Reason: Keep Vein Open Last Admin: 10/11/17 16:10 Dose: 10 ml Assessment/Plan Comment:: Assessment/Plan: Acute: Respiratory Failure - He is on 15L NR - Risk Factors: HF and Dysphagia (Aspiration) - 2/2 Bilateral Pleural Effusion - Will start CPAP / on 5 L Atelectasis - He is afebrile w/o leukocytosis - Chest CT scan shows compressive atelectasis - Afebriel w/o leukocytosis - IS and CPAP to expand the lung - H2B prophylaxis for reflux/pyrosis - This is like/y chronic given his chronic dysphagia and inability to take deep breaths B/L Pleural Effusion - CT scan shows small left-sided pleural effusion with his form to moderate- sized right-sided pleural effusion - CPAP for now to open his lungs - Continue diuretic - Patterson catheter - Consider therapeutic thoracentesis on AM Chronic: Impaired Vision Atrial Fibrillation on Eliquis HTN HLD Constipation HF with Preserved EF 55-60% Fecal Incontinence Hx/o Bradycardia CKD/Renal Insufficiency Urinary Retention/Incontinence 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
[2017-10-11] MEDS ORDERED: LORazepam 2 MG/ML MDV IVPUSH PRN (18:18)
[2017-10-11] MEDS ORDERED: Benzonatate 100 MG Cap PO PRN (18:18)
[2017-10-11] MEDS ORDERED: Metoprolol Tartrate 5 MG/5 ML SDV IVPUSH PRN (18:18)
[2017-10-11] MEDS ORDERED: hydrALAZINE 20 MG/ML SDV IVPUSH PRN (18:18)
[2017-10-11] MEDS ORDERED: Acetaminophen 325 MG Tab PO PRN (18:21)
[2017-10-11] MEDS ORDERED: Morphine 2 MG/ML Syringe IVPUSH PRN (18:21)
[2017-10-11] MEDS ORDERED: Acetaminophen/HYDROcodone 325-5 MG Tab PO PRN (18:21)
[2017-10-11] MEDS ORDERED: Pantoprazole 40 MG Vial IV ONE (18:24)
[2017-10-11] MEDS ORDERED: Temazepam 7.5 MG Cap PO PRN (18:24)
[2017-10-11] MEDS ORDERED: Promethazine 6.25 MG in Sodium Chloride 0.9% 50 ML IV PRN (18:24)
[2017-10-11] MEDS ORDERED: Ondansetron 4 MG/2 ML SDV IV PRN (18:24)
[2017-10-11] MEDS ORDERED: Albuterol/Ipratropium 3.0-0.5 MG/3 ML Neb Soln NEB PRN (18:24)
[2017-10-11] MEDS ORDERED: Pantoprazole 40 MG Vial ONE (18:24)
[2017-10-11] MEDS ORDERED: Docusate Sodium 100 MG Cap PO PRN (18:24)
[2017-10-11] MEDS ORDERED: Bisacodyl 5 MG Tab PO PRN (18:24)
[2017-10-11] MEDS ORDERED: Polyethylene Glycol 3350 Powder 17 GM Packet PO PRN (18:24)
[2017-10-11] MEDS ORDERED: OXYGEN IH SCH (18:30)
[2017-10-11] MEDS: LORazepam 2 MG/ML MDV IV PRN (19:04)
[2017-10-11] MEDS: Apixaban 5 MG Tab PO SCH (20:43)
[2017-10-11] MEDS ORDERED: Non-Formulary Medication 1 Each (Pravastatin Sodium [Pravastatin Sodium] 80 MG) PO SCH (21:00)
[2017-10-11] MEDS: Hypromellose 0.5% Ophth Soln 15 ML Bottle EYEBOTH SCH (21:51)
[2017-10-11] MEDS: Simvastatin 20 MG Tab PO SCH (21:52)
[2017-10-11] MEDS: guaiFENesin 600 MG Tab.ER PO SCH (21:52)
[2017-10-11] MEDS: Sennosides 8.6 MG Tab PO SCH (21:52)
[2017-10-12] MEDS: LORazepam 2 MG/ML MDV IV PRN (01:07)
--- NOTE | 2017-10-12 07:15 | PCM.PN ---
- General Info Date of Service: 10/12/17 Admission Dx/Problem (Free Text): Admission Diagnosis/Problem Admission Diagnosis/Problem Respiratory failure Subjective Update: Follow Up Functional Status: Reports: Pain Controlled, Tolerating Diet, Urinating - Review of Systems General: Denies: Fever, Weakness, Fatigue, Malaise, Chills HEENT: Reports: No Symptoms, Other Pulmonary: Reports: Shortness of Breath Cardiovascular: Reports: Dyspnea on Exertion. Denies: Chest Pain, Edema Gastrointestinal: Denies: Abdominal Pain, Nausea, Vomiting Genitourinary: Reports: No Symptoms Musculoskeletal: Reports: No Symptoms Skin: Reports: No Symptoms Neurological: Reports: Difficulty Walking, Gait Disturbance. Denies: Weakness Psychiatric: Denies: Depression, Anxiety, Agitation, Hallucinations Systems Review Comment:: No significant overnight or acute issues. He is still on CPAP unable to come off this morning; with each attempt his O2 sats drop down to the low 80s. He appears comfortable however. He is afebrile with leukocytosis. - Patient Data Vitals - Most Recent: Last Vital Signs Temp 37.2 C 10/12/17 04:00 Pulse 50 L 10/11/17 18:00 Resp 21 H 10/12/17 04:00 BP 132/53 L 10/12/17 04:00 Pulse Ox 92 L 10/12/17 06:18 Weight - Most Recent: 106.322 kg I&O - Last 24 Hours: Intake & Output 10/11/17 10/12/17 10/12/17 22:59 06:59 14:59 Intake Total 875 340 Output Total 400 455 Balance 475 -115 Lab Results Last 24 Hours: Laboratory Results - last 24 hr 10/11/17 10/12/17 10/12/17 Range/Units 18:00 06:20 06:20 WBC 6.72 (4.23-9.07) K/mm3 RBC 3.63 L (4.63-6.08) M/mm3 Hgb 9.9 L (13.7-17.5) gm/L Hct 33.5 L (40.1-51.0) % MCV 92.3 H (79.0-92.2) fl MCH 27.3 (25.7-32.2) pg MCHC 29.6 L (32.2-35.5) g/dl RDW Std Deviation 52.3 H (35.1-43.9) fL Plt Count 231 (163-337) K/mm3 MPV 9.7 (9.4-12.3) fl Neut % (Auto) 73.9 H (34.0-67.9) % Lymph % (Auto) 15.3 L (21.8-53.1) % [place] % (Auto) 8.6 (5.3-12.2) % Eos % (Auto) 1.9 (0.8-7.0) Baso % (Auto) 0.3 (0.1-1.2) % Neut # (Auto) 4.96 (1.78-5.38) K/mm3 Lymph # (Auto) 1.03 L (1.32-3.57) K/mm3 [place] # (Auto) 0.58 (0.30-0.82) K/mm3 Eos # (Auto) 0.13 (0.04-0.54) K/mm3 Baso # (Auto) 0.02 (0.01-0.08) K/mm3 Manual Slide Review Abnormal smear Sodium 144 (136-145) mEq/L Potassium 3.8 (3.5-5.1) mEq/L Chloride 103 (98-107) mEq/L Carbon Dioxide 34 H (21-32) mEq/L Anion Gap 10.8 (5-15) BUN 31 H (7-18) mg/dL Creatinine 1.6 H (0.7-1.3) mg/dL Est Cr Clr Drug Dosing 39.07 mL/min Estimated GFR (MDRD) 42 (>60) mL/min BUN/Creatinine Ratio 19.4 H (14-18) Glucose 89 (83-115) mg/dL Calcium 8.9 (8.5-10.1) mg/dL Magnesium 2.3 (1.8-2.4) mg/dl Troponin I 0.245 H* (0.00-0.056) ng/mL C-Reactive Protein 5.5 H* (<1.0) mg/dL Med Orders - Current: Current Medications Acetaminophen (Tylenol) 650 mg PO Q4H PRN PRN Reason: Pain (Mild 1-3)/fever Hydrocodone Bitart/Acetaminophen ([place] 325-5 Mg) 1 tab PO Q4H PRN PRN Reason: Pain (moderate 4-6) Albuterol/Ipratropium (Duoneb 3.0-0.5 Mg/3 Ml) 3 ml NEB Q4H PRN PRN Reason: Shortness Of Breath/wheezing Last Admin: 10/12/17 06:18 Dose: 3 ml Amlodipine Besylate (Norvasc) 10 mg PO DAILY [facility] Apixaban (Eliquis) 2.5 mg PO BID [facility] Last Admin: 10/11/17 20:43 Dose: Not Given Artificial Tears (Isopto Tears 0.5% Ophth Soln) 0 ml EYEBOTH TID [facility] Last Admin: 10/11/17 21:51 Dose: 2 drop Aspirin (Halfprin) 81 mg PO DAILY [facility] Benzonatate (Tessalon Perles) 100 mg PO TID PRN PRN Reason: Cough Bisacodyl (Dulcolax) 5 mg PO DAILY PRN PRN Reason: Constipation Cholecalciferol (Vitamin D3) 5,000 units PO DAILY [facility] Docusate Sodium (Colace) 100 mg PO BID PRN PRN Reason: Constipation Famotidine (Pepcid) 20 mg IVPUSH BID [facility] Furosemide (Lasix) 40 mg PO DAILY [facility] Furosemide (Lasix) 20 mg PO DAILY@1400 [facility] Guaifenesin (Mucinex) 600 mg PO BID [facility] Last Admin: 10/11/17 21:52 Dose: 600 mg Hydralazine HCl (Apresoline) 10 mg IVPUSH Q4H PRN PRN Reason: Hypertension Promethazine HCl 6.25 mg/ (Sodium Chloride) 50.25 mls @ 100 mls/hr IV Q6H PRN PRN Reason: Nausea/Vomiting Azithromycin 500 mg/ Sodium (Chloride) 250 mls @ 250 mls/hr IV Q24H [facility] Ceftriaxone Sodium 1 gm/ (Sodium Chloride) 100 mls @ 200 mls/hr IV Q24H [facility] Lisinopril (Prinivil) 20 mg PO DAILY [facility] Lorazepam (Ativan) 2 mg IVPUSH Q4H PRN PRN Reason: Seizures Lorazepam (Ativan) 0.25 mg IV Q6H PRN PRN Reason: Anxiety Last Admin: 10/12/17 01:07 Dose: 0.25 mg Magnesium Sulfate (Pharmacy To Dose - Magnesium Replacement) 1 dose .XX ASDIRECTED [facility] Metoprolol Tartrate (Lopressor) 5 mg IVPUSH Q4H PRN PRN Reason: Tachycardia Morphine Sulfate (Morphine) 0.5 mg IVPUSH Q2H PRN PRN Reason: Pain (severe 7-10) Stop: 10/12/17 18:23 Ondansetron HCl (Zofran) 4 mg IV Q6H PRN PRN Reason: Nausea/Vomiting Polyethylene Glycol (Miralax) 17 gm PO DAILY PRN PRN Reason: Constipation Potassium Chloride (Pharmacy To Dose - Potassium Replacement) 1 dose .XX ASDIRECTED [facility] Saccharomyces Boulardii (Florastor) 500 mg PO DAILY [facility] Senna (Senna) 8.6 mg PO BID [facility] Last Admin: 10/11/17 21:52 Dose: 8.6 mg Senna/Docusate Sodium (Senna Plus) 1 tab PO BID PRN PRN Reason: Constipation Sertraline HCl (Zoloft) 50 mg PO DAILY [facility] Simvastatin (Zocor) 20 mg PO BEDTIME [facility] Last Admin: 10/11/17 21:52 Dose: 20 mg Sodium Chloride (Saline Flush) 10 ml FLUSH ASDIRECTED PRN PRN Reason: Keep Vein Open Last Admin: 10/11/17 16:10 Dose: 10 ml Temazepam (Restoril) 7.5 mg PO BEDTIME PRN PRN Reason: Sleep Discontinued Medications Sodium Chloride (Normal Saline) 1,000 mls @ 150 mls/hr IV ASDIRECTED [facility] Last Admin: 10/11/17 16:39 Dose: 150 mls/hr Sodium Chloride (Normal Saline) 1,000 mls @ 250 mls/hr IV .BOLUS ONE Stop: 10/11/17 20:55 Last Admin: 10/11/17 18:58 Dose: Not Given Azithromycin 500 mg/ Sodium (Chloride) 250 mls @ 250 mls/hr IV ONETIME ONE Stop: 10/11/17 18:00 Last Admin: 10/11/17 17:25 Dose: 250 mls/hr Ceftriaxone Sodium 2 gm/ (Sodium Chloride) 100 mls @ 200 mls/hr IV ONETIME ONE Stop: 10/11/17 17:30 Last Admin: 10/11/17 18:56 Dose: 200 mls/hr Sodium Chloride (Normal Saline) Confirm Administered Dose 100 mls @ as directed .ROUTE .STK-MED ONE Stop: 10/11/17 17:24 Last Admin: 10/11/17 17:27 Dose: Not Given Iopamidol (Isovue-370 (76%)) 100 ml IVPUSH ONETIME ONE Stop: 10/11/17 16:38 Last Admin: 10/11/17 19:53 Dose: Not Given Pantoprazole Sodium (Protonix Iv) 40 mg .XX ONETIME ONE Stop: 10/11/17 18:25 Last Admin: 10/11/17 20:55 Dose: Not Given Pantoprazole Sodium (Protonix Iv) 40 mg IV ONETIME ONE Stop: 10/11/17 18:25 Last Admin: 10/11/17 21:53 Dose: 40 mg - Exam Quality Assessment: Supplemental Oxygen General: Alert, Cooperative, No Acute Distress HEENT: Pupils Equal, Pupils Reactive, Other (Mild Dysarthria and facial assymentry) Neck: Supple, Trachea Midline, No JVD Lungs: Normal Respiratory Effort, Decreased Breath Sounds Cardiovascular: Irregular Rhythm, Murmurs GI/Abdominal Exam: Normal Bowel Sounds, Soft, Non-Tender, No Organomegaly, No Distention, No Abnormal Bruit, No Mass (Male) Exam: Other (indwelling ogden catheter) Back Exam: Normal Inspection, Decreased Range of Motion Extremities: Normal Inspection, Normal Range of Motion, Non-Tender, No Pedal Edema, Normal Capillary Refill Peripheral Pulses: 2+: Dorsalis Pedis (L), Dorsalis Pedis (R) Skin: Warm, Dry, Intact Neurological: No New Focal Deficit Psy/Mental Status: Alert, Normal Affect, Normal Mood - Problem List Review Problem List Initiated/Reviewed/Updated: Yes - My Orders Last 24 Hours: My Active Orders 10/11/17 18:14 BIPAP [RT BiPAP/CPAP] [RC] ASDIRECTED 10/11/17 18:18 Benzonatate [Tessalon Perles] 100 mg PO TID PRN LORazepam [Ativan] 2 mg IVPUSH Q4H PRN Metoprolol Tartrate [Lopressor] 5 mg IVPUSH Q4H PRN hydrALAZINE [Apresoline] 10 mg IVPUSH Q4H PRN 10/11/17 18:21 Ambulate [RC] ASDIRECTED Height and Weight [RC] 04 December Shower [RC] ASDIRECTED Oxygen Therapy [RC] PRN VTE/DVT Education [RC] BID Vital Signs [RC] 03,09,15,21 Acetaminophen [Tylenol] 650 mg PO Q4H PRN Acetaminophen/HYDROcodone [[place] 325-5 MG] 1 tab PO Q4H PRN Morphine 0.5 mg IVPUSH Q2H PRN Resuscitation Status Routine 10/11/17 18:22 Intake and Output [RC] Q2HR Pulse Oximetry [RC] PRN 10/11/17 18:24 Albuterol/Ipratropium [DuoNeb 3.0-0.5 MG/3 ML] 3 ml NEB Q4H PRN Bisacodyl [Dulcolax] 5 mg PO DAILY PRN Docusate Sodium [Colace] 100 mg PO BID PRN Docusate Sodium/Sennosides [Senna Plus] 1 tab PO BID PRN LORazepam [Ativan] 0.25 mg IV Q6H PRN Ondansetron [Zofran] 4 mg IV Q6H PRN Polyethylene Glycol 3350 [MiraLAX] 17 gm PO DAILY PRN Promethazine [Phenergan] 6.25 mg Sodium Chloride 0.9% [Normal Saline] 50 ml IV Q6H Temazepam [Restoril] 7.5 mg PO BEDTIME PRN 10/11/17 18:26 RT Aerosol Therapy [RC] ASDIRECTED 10/11/17 18:27 Consult to Case Management [CONS] Routine Consult to Payroll Technician [CONS] Routine Consult to Spiritual Care [CONS] Routine OT Evaluation and Treatment [CONS] Routine PT Evaluation and Treatment [CONS] Routine Respiratory Care Assess and Treatment [CONS] Routine 10/11/17 18:30 Magnesium Rep Pharmacy to Dose [Pharmacy to Dose - Magnesium Replacement] 1 dose .XX ASDIRECTED Potassium Rep Pharmacy to Dose [Pharmacy to Dose - Potassium Replacement] 1 dose .XX ASDIRECTED 10/11/17 19:33 Urinary Catheter Assessment [RC] Q4HR 10/11/17 19:45 Insert Ogden Catheter [Insert Urinary Catheter] [OM.PC] Q24H 10/11/17 20:42 Incentive Spirometry [RT Incentive Spirometry] [RC] ASDIRECTED 10/11/17 21:00 Apixaban [Eliquis] 2.5 mg PO BID Hypromellose [Isopto Tears 0.5% Ophth Soln] 0 ml EYEBOTH TID Sennosides [Senna] 8.6 mg PO BID Simvastatin [Zocor] 20 mg PO BEDTIME guaiFENesin [Mucinex] 600 mg PO BID 10/11/17 Dinner Heart Healthy Diet [DIET] 10/12/17 07:00 Echo Comp wo Cont [US] Routine 10/12/17 07:10 Patient Status [ADT] Routine 10/12/17 09:00 Aspirin [Halfprin] 81 mg PO DAILY Azithromycin [Zithromax] 500 mg Sodium Chloride 0.9% [Normal Saline] 250 ml IV Q24H Cholecalciferol (Vitamin D3) [Vitamin D3] 5,000 units PO DAILY Famotidine [Pepcid] 20 mg IVPUSH BID Furosemide [Lasix] 40 mg PO DAILY Lisinopril [Prinivil] 20 mg PO DAILY Saccharomyces Boulardii [Florastor] 500 mg PO DAILY Sertraline [Zoloft] 50 mg PO DAILY amLODIPine [Norvasc] 10 mg PO DAILY cefTRIAXone [Rocephin] 1 gm Sodium Chloride 0.9% [Normal Saline] 100 ml IV Q24H 10/12/17 14:00 Furosemide [Lasix] 20 mg PO DAILY@1400 10/13/17 05:11 Chest 1V Frontal [CR] AM BASIC METABOLIC PANEL,BMP [CHEM] AM C-REACTIVE PROTEIN [CHEM] AM CBC WITH AUTO DIFF [HEME] AM MAGNESIUM [CHEM] AM 10/14/17 05:11 BASIC METABOLIC PANEL,BMP [CHEM] AM C-REACTIVE PROTEIN [CHEM] AM CBC WITH AUTO DIFF [HEME] AM MAGNESIUM [CHEM] AM 10/15/17 05:11 BASIC METABOLIC PANEL,BMP [CHEM] AM C-REACTIVE PROTEIN [CHEM] AM CBC WITH AUTO DIFF [HEME] AM MAGNESIUM [CHEM] AM - Plan Plan:: Assessment/Plan: Acute: Respiratory Failure - He was on 15L NR; now CPAP - Risk Factors: HF and Dysphagia (Aspiration) - 2/2 Bilateral Pleural Effusion - Continue CPAP 10/5 on 5 L Atelectasis - He is afebrile w/o leukocytosis - Chest CT scan shows compressive atelectasis - IS and CPAP to expand the lung - This is like/y chronic given his chronic dysphagia and inability to take deep breaths B/L Pleural Effusion - CT scan shows small left-sided pleural effusion with his form to moderate- sized right-sided pleural effusion - He refused thoracentesis - Continue CPAP for now until we speak to his DPOA - Continue diuretic and Ogden catheter Chronic: Impaired Vision Atrial Fibrillation on Eliquis HTN HLD Constipation HF with Preserved EF 55-60% Fecal Incontinence Hx/o Bradycardia CKD/Renal Insufficiency Urinary Retention/Incontinence 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 At this point, he is refusing thoracentesis. Informed patient diuretic may not be enough to remove fluids off of his chest.
[2017-10-12] MEDS ORDERED: Famotidine 20 MG/2 ML SDV IVPUSH SCH (09:00)
[2017-10-12] MEDS: cefTRIAXone 1 GM in Sodium Chloride 0.9% 100 ML IV SCH (09:06)
[2017-10-12] MEDS: Apixaban 5 MG Tab PO SCH ×2 (09:06→21:13)
[2017-10-12] MEDS: Azithromycin 500 MG in Sodium Chloride 0.9% 250 ML IV SCH (09:06)
[2017-10-12] MEDS: Saccharomyces Boulardii (Probiotic) 250 MG Cap PO SCH ×2 (09:07→21:15)
[2017-10-12] MEDS: Cholecalciferol (Vitamin D3) 1,000 Unit Tab PO SCH (09:08)
[2017-10-12] MEDS: Furosemide 40 MG Tab PO SCH (09:09)
[2017-10-12] MEDS: guaiFENesin 600 MG Tab.ER PO SCH ×2 (09:09→21:15)
[2017-10-12] MEDS: Hypromellose 0.5% Ophth Soln 15 ML Bottle EYEBOTH SCH ×3 (09:09→21:17)
[2017-10-12] MEDS: Sennosides 8.6 MG Tab PO SCH ×2 (09:09→21:15)
[2017-10-12] MEDS: Sertraline 50 MG Tab PO SCH (09:09)
[2017-10-12] MEDS: Lisinopril 20 MG Tab PO SCH (09:10)
[2017-10-12] MEDS: Aspirin 81 MG Tab.EC PO SCH (09:10)
[2017-10-12] MEDS: amLODIPine 10 MG Tab PO SCH (09:10)
[2017-10-12] MEDS: Furosemide 20 MG Tab PO SCH (15:20)
[2017-10-12] MEDS ORDERED: Bumetanide 1 MG/4 ML MDV IVPUSH ONE (18:04)
[2017-10-12] MEDS: Simvastatin 20 MG Tab PO SCH (21:15)
--- NOTE | 2017-10-13 07:03 | PCM.PN ---
- General Info Date of Service: 10/13/17 Admission Dx/Problem (Free Text): Admission Diagnosis/Problem Admission Diagnosis/Problem Respiratory failure Subjective Update: Follow Up Functional Status: Reports: Pain Controlled, Tolerating Diet, Urinating - Patient Data Vitals - Most Recent: Last Vital Signs Temp 37.3 C 10/13/17 03:00 Pulse 60 10/13/17 03:00 Resp 27 H 10/13/17 03:00 BP 138/53 L 10/13/17 03:00 Pulse Ox 92 L 10/13/17 03:00 Weight - Most Recent: 106.594 kg I&O - Last 24 Hours: Intake & Output 10/12/17 10/13/17 10/13/17 22:59 06:59 14:59 Intake Total 950 400 Output Total 350 1250 Balance 600 -850 Lab Results Last 24 Hours: Laboratory Results - last 24 hr 10/12/17 10/12/17 Range/Units 19:36 19:36 Magnesium 2.1 (1.8-2.4) mg/dl NT-Pro-B Natriuret Pep 2882 H (0-450) pg/mL Med Orders - Current: Current Medications Acetaminophen (Tylenol) 650 mg PO Q4H PRN PRN Reason: Pain (Mild 1-3)/fever Hydrocodone Bitart/Acetaminophen ([place] 325-5 Mg) 1 tab PO Q4H PRN PRN Reason: Pain (moderate 4-6) Albuterol/Ipratropium (Duoneb 3.0-0.5 Mg/3 Ml) 3 ml NEB Q4H PRN PRN Reason: Shortness Of Breath/wheezing Last Admin: 10/12/17 06:18 Dose: 3 ml Amlodipine Besylate (Norvasc) 10 mg PO DAILY [facility] Last Admin: 10/12/17 09:10 Dose: 10 mg Apixaban (Eliquis) 2.5 mg PO BID [facility] Last Admin: 10/12/17 21:13 Dose: 2.5 mg Artificial Tears (Isopto Tears 0.5% Ophth Soln) 0 ml EYEBOTH TID [facility] Last Admin: 10/12/17 21:17 Dose: 1 drop Aspirin (Halfprin) 81 mg PO DAILY [facility] Last Admin: 10/12/17 09:10 Dose: Not Given Benzonatate (Tessalon Perles) 100 mg PO TID PRN PRN Reason: Cough Bisacodyl (Dulcolax) 5 mg PO DAILY PRN PRN Reason: Constipation Cholecalciferol (Vitamin D3) 5,000 units PO DAILY [facility] Last Admin: 10/12/17 09:08 Dose: 5,000 units Docusate Sodium (Colace) 100 mg PO BID PRN PRN Reason: Constipation Famotidine (Pepcid) 20 mg PO DAILY [facility] Furosemide (Lasix) 40 mg PO DAILY [facility] Last Admin: 10/12/17 09:09 Dose: 40 mg Furosemide (Lasix) 20 mg PO DAILY@1400 [facility] Last Admin: 10/12/17 15:20 Dose: 20 mg Guaifenesin (Mucinex) 600 mg PO BID [facility] Last Admin: 10/12/17 21:15 Dose: 600 mg Hydralazine HCl (Apresoline) 10 mg IVPUSH Q4H PRN PRN Reason: Hypertension Last Admin: 10/12/17 21:02 Dose: 10 mg Promethazine HCl 6.25 mg/ (Sodium Chloride) 50.25 mls @ 100 mls/hr IV Q6H PRN PRN Reason: Nausea/Vomiting Azithromycin 500 mg/ Sodium (Chloride) 250 mls @ 250 mls/hr IV Q24H [facility] Last Admin: 10/12/17 09:06 Dose: 250 mls/hr Ceftriaxone Sodium 1 gm/ (Sodium Chloride) 100 mls @ 200 mls/hr IV Q24H [facility] Last Admin: 10/12/17 09:06 Dose: 200 mls/hr Lisinopril (Prinivil) 20 mg PO DAILY [facility] Last Admin: 10/12/17 09:10 Dose: 20 mg Lorazepam (Ativan) 2 mg IVPUSH Q4H PRN PRN Reason: Seizures Lorazepam (Ativan) 0.25 mg IV Q6H PRN PRN Reason: Anxiety Last Admin: 10/12/17 01:07 Dose: 0.25 mg Magnesium Sulfate (Pharmacy To Dose - Magnesium Replacement) 1 dose .XX ASDIRECTED [facility] Metoprolol Tartrate (Lopressor) 5 mg IVPUSH Q4H PRN PRN Reason: Tachycardia Ondansetron HCl (Zofran) 4 mg IV Q6H PRN PRN Reason: Nausea/Vomiting Polyethylene Glycol (Miralax) 17 gm PO DAILY PRN PRN Reason: Constipation Potassium Chloride (Pharmacy To Dose - Potassium Replacement) 1 dose .XX ASDIRECTED [facility] Saccharomyces Boulardii (Florastor) 250 mg PO BID [facility] Last Admin: 10/12/17 21:15 Dose: 250 mg Senna (Senna) 8.6 mg PO BID [facility] Last Admin: 10/12/17 21:15 Dose: 8.6 mg Senna/Docusate Sodium (Senna Plus) 1 tab PO BID PRN PRN Reason: Constipation Sertraline HCl (Zoloft) 50 mg PO DAILY [facility] Last Admin: 10/12/17 09:09 Dose: 50 mg Simvastatin (Zocor) 20 mg PO BEDTIME [facility] Last Admin: 10/12/17 21:15 Dose: 20 mg Sodium Chloride (Saline Flush) 10 ml FLUSH ASDIRECTED PRN PRN Reason: Keep Vein Open Last Admin: 10/11/17 16:10 Dose: 10 ml Temazepam (Restoril) 7.5 mg PO BEDTIME PRN PRN Reason: Sleep Discontinued Medications Bumetanide (Bumex) 0.5 mg IVPUSH ONETIME ONE Stop: 10/12/17 18:05 Last Admin: 10/12/17 18:20 Dose: 0.5 mg Famotidine (Pepcid) 20 mg IVPUSH DAILY [facility] Last Admin: 10/12/17 09:07 Dose: 20 mg Sodium Chloride (Normal Saline) 1,000 mls @ 150 mls/hr IV ASDIRECTED [facility] Last Admin: 10/11/17 16:39 Dose: 150 mls/hr Sodium Chloride (Normal Saline) 1,000 mls @ 250 mls/hr IV .BOLUS ONE Stop: 10/11/17 20:55 Last Admin: 10/11/17 18:58 Dose: Not Given Azithromycin 500 mg/ Sodium (Chloride) 250 mls @ 250 mls/hr IV ONETIME ONE Stop: 10/11/17 18:00 Last Admin: 10/11/17 17:25 Dose: 250 mls/hr Ceftriaxone Sodium 2 gm/ (Sodium Chloride) 100 mls @ 200 mls/hr IV ONETIME ONE Stop: 10/11/17 17:30 Last Admin: 10/11/17 18:56 Dose: 200 mls/hr Sodium Chloride (Normal Saline) Confirm Administered Dose 100 mls @ as directed .ROUTE .STK-MED ONE Stop: 10/11/17 17:24 Last Admin: 10/11/17 17:27 Dose: Not Given Iopamidol (Isovue-370 (76%)) 100 ml IVPUSH ONETIME ONE Stop: 10/11/17 16:38 Last Admin: 10/11/17 19:53 Dose: Not Given Morphine Sulfate (Morphine) 0.5 mg IVPUSH Q2H PRN PRN Reason: Pain (severe 7-10) Stop: 10/12/17 18:23 Last Admin: 10/12/17 17:55 Dose: 0.5 mg Pantoprazole Sodium (Protonix Iv) 40 mg .XX ONETIME ONE Stop: 10/11/17 18:25 Last Admin: 10/11/17 20:55 Dose: Not Given Pantoprazole Sodium (Protonix Iv) 40 mg IV ONETIME ONE Stop: 10/11/17 18:25 Last Admin: 10/11/17 21:53 Dose: 40 mg - My Orders Last 24 Hours: My Active Orders 10/12/17 07:10 Patient Status [ADT] Routine 10/12/17 09:00 Aspirin [Halfprin] 81 mg PO DAILY Azithromycin [Zithromax] 500 mg Sodium Chloride 0.9% [Normal Saline] 250 ml IV Q24H Cholecalciferol (Vitamin D3) [Vitamin D3] 5,000 units PO DAILY Furosemide [Lasix] 40 mg PO DAILY Lisinopril [Prinivil] 20 mg PO DAILY Saccharomyces Boulardii [Florastor] 250 mg PO BID Sertraline [Zoloft] 50 mg PO DAILY amLODIPine [Norvasc] 10 mg PO DAILY cefTRIAXone [Rocephin] 1 gm Sodium Chloride 0.9% [Normal Saline] 100 ml IV Q24H 10/12/17 14:00 Furosemide [Lasix] 20 mg PO DAILY@1400 10/12/17 18:03 Chest 1V Frontal [CR] Stat 10/13/17 05:11 Chest 1V Frontal [CR] AM 10/13/17 05:50 BASIC METABOLIC PANEL,BMP [CHEM] AM C-REACTIVE PROTEIN [CHEM] AM CBC WITH AUTO DIFF [HEME] AM MAGNESIUM [CHEM] AM PRO B-TYPE NATRIUR PEPT,BNPPRO [CHEM] Routine 10/13/17 07:00 Chest 1V Frontal [CR] Routine 10/13/17 09:00 Famotidine [Pepcid] 20 mg PO DAILY 10/14/17 05:11 BASIC METABOLIC PANEL,BMP [CHEM] AM C-REACTIVE PROTEIN [CHEM] AM CBC WITH AUTO DIFF [HEME] AM MAGNESIUM [CHEM] AM 10/15/17 05:11 BASIC METABOLIC PANEL,BMP [CHEM] AM C-REACTIVE PROTEIN [CHEM] AM CBC WITH AUTO DIFF [HEME] AM MAGNESIUM [CHEM] AM - Plan Plan:: Assessment/Plan: Acute: Respiratory Failure - He is on 15L NR - Risk Factors: HF and Dysphagia (Aspiration) - 2/2 Bilateral Pleural Effusion - Will start CPAP 05/21 on 5 L Atelectasis - He is afebrile w/o leukocytosis - Chest CT scan shows compressive atelectasis - Afebriel w/o leukocytosis - IS and CPAP to expand the lung - H2B prophylaxis for reflux/pyrosis - This is like/y chronic given his chronic dysphagia and inability to take deep breaths B/L Pleural Effusion - CT scan shows small left-sided pleural effusion with his form to moderate- sized right-sided pleural effusion - CPAP for now to open his lungs - Continue diuretic - Patterson catheter - Consider therapeutic thoracentesis on AM Chronic: Impaired Vision Atrial Fibrillation on Eliquis HTN HLD Constipation HF with Preserved EF 55-60% Fecal Incontinence Hx/o Bradycardia CKD/Renal Insufficiency Urinary Retention/Incontinence 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
--- NOTE | 2017-10-13 07:22 | CR ---
Chest: Portable view of the chest was obtained. Comparison: Prior chest x-ray of 10/11/[address] of 10/11/17. Increasing density is seen within the right chest from prior study. Lung markings are slightly increased on the left side with May B lines suggesting the pulmonary vascular congestion. Heart is enlarged. Tortuous thoracic aorta is seen. Bony structures are grossly intact. Impression: 1. May B lines on the left side with increasing density on the right side. Findings most likely represents pulmonary vascular congestion which is asymmetrically worse on the right side superimposed upon pneumonia. 2. Cardiomegaly which is stable and other stable findings. Diagnostic code #3 Agree with preliminary report issued by [facility] ([facility] preliminary report dictated on 10/12/17, 7:34 PM Central Time)
--- NOTE | 2017-10-13 08:27 | CR ---
Chest: Portable view of the chest was obtained. Comparison: Prior chest x-ray of 10/12/17. Parenchymal density is noted within the right perihilar region and right lung base. Findings are stable from most recent exam. Decreased May B lines on the left side presumably due to improved pulmonary vascular congestion. Heart is enlarged. Tortuous thoracic aorta is seen. Bony structures are grossly intact. Impression: 1. Continuing parenchymal density within the right perihilar and right lower lobe. 2. Diminished pulmonary vascular congestion from prior exam. Diagnostic code #3
[2017-10-13] MEDS: Azithromycin 500 MG in Sodium Chloride 0.9% 250 ML IV SCH (08:43)
[2017-10-13] MEDS: cefTRIAXone 1 GM in Sodium Chloride 0.9% 100 ML IV SCH (08:45)
[2017-10-13] MEDS: amLODIPine 10 MG Tab PO SCH (08:46)
[2017-10-13] MEDS: Apixaban 5 MG Tab PO SCH (08:47)
[2017-10-13] MEDS: Cholecalciferol (Vitamin D3) 1,000 Unit Tab PO SCH (08:48)
[2017-10-13] MEDS: Saccharomyces Boulardii (Probiotic) 250 MG Cap PO SCH (08:49)
[2017-10-13] MEDS: Sennosides 8.6 MG Tab PO SCH (08:49)
[2017-10-13] MEDS: Aspirin 81 MG Tab.EC PO SCH (08:49)
[2017-10-13] MEDS: Furosemide 40 MG Tab PO SCH (08:50)
[2017-10-13] MEDS: Sertraline 50 MG Tab PO SCH (08:50)
[2017-10-13] MEDS: guaiFENesin 600 MG Tab.ER PO SCH (08:51)
[2017-10-13] MEDS: Lisinopril 20 MG Tab PO SCH (08:52)
[2017-10-13] MEDS: Hypromellose 0.5% Ophth Soln 15 ML Bottle EYEBOTH SCH ×2 (08:53→14:20)
[2017-10-13] MEDS ORDERED: Famotidine 20 MG Tab PO SCH (09:00)
--- NOTE | 2017-10-13 12:03 | PCM.SN ---
- Free Text/Narrative Note: Patient is not doing well on BIPAP. He is sating at 85-86%. When he comes off of it, he drops down to low 70s. We called his family and personally spoke to his and daughter, they want him to have the therapeutic thoracenesis. Unfortunately, it was offered to him multiple times yesterday, but refused and still continues to refuse it. Of note, he is alert/awake and reasonable. He said "no" to me and while we had his on the phone. He was assessed and evaluated by SW as well as SURGICAL ASSIST and was deemed not only appropriate but reasonable. Called and informed Dr. Kaba, since is refusing further medical treatment, he will be sent back to [place]. Jai will be discharged on BIPAP 10/5 with supplemental O2 on 4-5L.
--- NOTE | 2017-10-13 12:23 | PCM.DCSUM1 ---
Discharge Summary - Hospital Course Brief History: This is an 82 yo elderly white male with past medical hx/o Impaired Vision, Atrial Fibrillation on Eliquis, HTN, HLD, Constipation, HF with Preserved EF 55-60%, Fecal Incontinence, Hx/o Bradycardia, CKD/Renal Insufficiency, Urinary Retention/Incontinence, CVA S/p Hemaparesis and Dysphagia , Idiopathic, Thrombocytopenia, Vitamin D Deficiency, Depression, and Hx/o TB who comes in with concerns of hypoxia and an elevated temperature of 100.2 subjective fever at [facility]. He was found sating in the low 70's while on 4L NC with crackles and wheezes on pulmonary auscultation. - Discharge Data Discharge Date: 10/13/17 Discharge Disposition: DC/Tfer to [facility] [place] [id number] Condition: Poor - Discharge Diagnosis/Problem(s) (1) Respiratory failure with hypoxia and hypercapnia SNOMED Code(s): 69975836 ICD Code: J96.91 - RESPIRATORY FAILURE, UNSPECIFIED WITH HYPOXIA; J96.92 - RESPIRATORY FAILURE, UNSPECIFIED WITH HYPERCAPNIA Status: Acute Qualifiers: Chronicity: acute on chronic Qualified Code(s): J96.21 - Acute and chronic respiratory failure with hypoxia; J96.22 - Acute and chronic respiratory failure with hypercapnia; J96.22 - Acute and chronic respiratory failure with hypercapnia; J96.22 - Acute and chronic respiratory failure with hypercapnia (2) Atelectasis of both lungs SNOMED Code(s): 73937870 ICD Code: J98.11 - ATELECTASIS Status: Acute (3) Pleural effusion, bilateral SNOMED Code(s): 178891216 ICD Code: J90 - PLEURAL EFFUSION, NOT ELSEWHERE CLASSIFIED Status: Acute (4) Encounter for end of life care SNOMED Code(s): 494406786 ICD Code: Z51.5 - ENCOUNTER FOR PALLIATIVE CARE Status: Acute - Patient Summary/Data Operative Procedure(s) Performed: None Complications: None Consults: Consultations 10/11/17 18:27 Consult to Case Management [CONS] Routine Consult to Traffic Sign Erection Supervisor [CONS] Routine Consult to Spiritual Care [CONS] Routine OT Evaluation and Treatment [CONS] Routine PT Evaluation and Treatment [CONS] Routine Respiratory Care Assess and Treatment [CONS] Routine 10/13/17 10:55 Consult to Speech Language Pathology [CURRICULUM AND INSTRUCTION SPECIALIST Evaluation and Treatment] [CONS] Routine Labs Pending at D/C: None Recommended Follow-up Testing/Procedures: None Planned Operative Procedure(s) after DC: None Hospital Course: Patient was admitted for acute respiratory failure due to worsening pleural effusion. He received supplemental O2 and was put on BIPAP for additional treatment. Unfortunately, he continued to decompensate respiratory liz despite being on BIPAP. We offered him therapeutic thoracentesis but he refused it. His family was called and informed about the above intervention but after his talked to him, patient again refused it. SW and CURRICULUM AND INSTRUCTION SPECIALIST assessed her mental status and was deemed appropriate and therefore we honored his wishes. Thereafter, he was immediately sent back to [facility] on BIPAP for continued medical treatment. His PCP was called updated regarding discharge care plans. We recommended end of life care at that point. His overall prognosis is poor. - Patient Instructions Diet: Usual Diet as Tolerated, Low Sodium Fluid Restriction: 2000 mL Activity: As Tolerated Driving: Do Not Drive Showering/Bathing: May Shower, No Tub Bathing/Swimming Notify Provider of: Fever, Nausea and/or Vomiting Other/Special Instructions: - Please resume all home medications. - Use BIPAP 10/5 continuously; switch to supplemental O2 at 4-5L for scheduled meals or breaks. - Recommend End of Life Care: Hospice/Palliative Care. - Call or follow up with your doctor for any questions or concerns - Discharge Plan Home Medications: Home Meds Lisinopril 20 mg PO DAILY 06/15/14 [History] Sertraline [Zoloft] 50 mg PO DAILY 06/15/14 [History] Apixaban [Eliquis] 2.5 mg PO BID 06/26/17 [History] Dextran 70/Hypromellose [Artificial Tears] 1 drop EYEBOTH TID 06/26/17 [History] Pravastatin Sodium 80 mg PO BEDTIME 06/26/17 [History] Sennosides [Senna] 8.6 mg PO BID 06/26/17 [History] amLODIPine [Norvasc] 10 mg PO DAILY 06/26/17 [History] Albuterol [IJD: Albuterol] 2.5 mg NEB Q6HRRT PRN #1 box 06/30/17 [Rx] Benzonatate [Tessalon Perles] 100 mg PO TID PRN #20 cap 11/14/17 [Rx] Furosemide [Lasix] 20 mg PO DAILY #30 06/30/17 [Rx] Furosemide [Lasix] 40 mg PO DAILY #30 tablet 06/30/17 [Rx] guaiFENesin [Mucinex] 600 mg PO BID #30 tab.er 06/30/17 [Rx] Cholecalciferol (Vitamin D3) [Vitamin D3] 5,000 unit PO DAILY 10/11/17 [History] Aspirin [Halfprin] 81 mg PO DAILY 10/13/17 [History] Patient Handouts: and Dying, Atelectasis, Adult, Palliative Care, Acute Respiratory Failure, Adult, Pleurisy, [id number], Hospice Referrals: Joesph Kaba MD [Primary Care Provider] - - Discharge Summary/Plan Comment DC Time >30 min.: Yes (45 mins) Discharge Summary/Plan Comment: Discharge to [place] - General Info Date of Service: 10/13/17 Admission Dx/Problem (Free Text: Acute Respiratory Failure Subjective Update: Follow Up Functional Status: Reports: Pain Controlled, Tolerating Diet, Urinating. Denies : Ambulating, New Symptoms - Review of Systems General: Denies: Fever, Weakness, Fatigue, Malaise, Chills HEENT: Reports: No Symptoms Pulmonary: Reports: Shortness of Breath Cardiovascular: Denies: Chest Pain, Palpitations, Dyspnea on Exertion, Lightheadedness Gastrointestinal: Denies: Abdominal Pain, Nausea, Vomiting Genitourinary: Reports: No Symptoms Musculoskeletal: Reports: No Symptoms Skin: Denies: Cyanosis, Mottled, Pallor, Diaphoresis Neurological: Reports: Difficulty Walking, Weakness, Gait Disturbance. Denies: Confusion Psychiatric: Denies: Depression, Anxiety, Agitation, Hallucinations Systems Review Comment: Still on BIPAP but alert and awake. - Patient Data Vitals - Most Recent: Last Vital Signs Temp 37.3 C 10/13/17 07:59 Pulse 60 10/13/17 03:00 Resp 32 H 10/13/17 07:59 BP 158/87 H 10/13/17 08:52 Pulse Ox 91 L 10/13/17 07:59 Weight - Most Recent: 106.594 kg I&O - Last 24 hours: Intake & Output 10/12/17 10/13/17 10/13/17 22:59 06:59 14:59 Intake Total 950 400 200 Output Total 350 1250 60 Balance 600 -850 140 Lab Results - Last 24 hrs: Laboratory Results - last 24 hr 10/12/17 10/12/17 10/13/17 Range/Units 19:36 19:36 05:50 WBC 7.99 (4.23-9.07) K/mm3 RBC 3.33 L (4.63-6.08) M/mm3 Hgb 9.2 L (13.7-17.5) gm/L Hct 30.4 L (40.1-51.0) % MCV 91.3 (79.0-92.2) fl MCH 27.6 (25.7-32.2) pg MCHC 30.3 L (32.2-35.5) g/dl RDW Std Deviation 52.1 H (35.1-43.9) fL Plt Count 142 L (163-337) K/mm3 MPV 10.6 (9.4-12.3) fl Neut % (Auto) 80.9 H (34.0-67.9) % Lymph % (Auto) 10.6 L (21.8-53.1) % [place] % (Auto) 7.4 (5.3-12.2) % Eos % (Auto) 0.5 L (0.8-7.0) Baso % (Auto) 0.3 (0.1-1.2) % Neut # (Auto) 6.47 H (1.78-5.38) K/mm3 Lymph # (Auto) 0.85 L (1.32-3.57) K/mm3 [place] # (Auto) 0.59 (0.30-0.82) K/mm3 Eos # (Auto) 0.04 (0.04-0.54) K/mm3 Baso # (Auto) 0.02 (0.01-0.08) K/mm3 Sodium (136-145) mEq/L Potassium (3.5-5.1) mEq/L Chloride (98-107) mEq/L Carbon Dioxide (21-32) mEq/L Anion Gap (5-15) BUN (7-18) mg/dL Creatinine (0.7-1.3) mg/dL Est Cr Clr Drug Dosing mL/min Estimated GFR (MDRD) (>60) mL/min BUN/Creatinine Ratio (14-18) Glucose (83-115) mg/dL Calcium (8.5-10.1) mg/dL Magnesium 2.1 (1.8-2.4) mg/dl C-Reactive Protein (<1.0) mg/dL NT-Pro-B Natriuret Pep 2882 H (0-450) pg/mL 10/13/17 10/13/17 Range/Units 05:50 05:50 WBC (4.23-9.07) K/mm3 RBC (4.63-6.08) M/mm3 Hgb (13.7-17.5) gm/L Hct (40.1-51.0) % MCV (79.0-92.2) fl MCH (25.7-32.2) pg MCHC (32.2-35.5) g/dl RDW Std Deviation (35.1-43.9) fL Plt Count (163-337) K/mm3 MPV (9.4-12.3) fl Neut % (Auto) (34.0-67.9) % Lymph % (Auto) (21.8-53.1) % [place] % (Auto) (5.3-12.2) % Eos % (Auto) (0.8-7.0) Baso % (Auto) (0.1-1.2) % Neut # (Auto) (1.78-5.38) K/mm3 Lymph # (Auto) (1.32-3.57) K/mm3 [place] # (Auto) (0.30-0.82) K/mm3 Eos # (Auto) (0.04-0.54) K/mm3 Baso # (Auto) (0.01-0.08) K/mm3 Sodium 144 (136-145) mEq/L Potassium 3.7 (3.5-5.1) mEq/L Chloride 103 (98-107) mEq/L Carbon Dioxide 33 H (21-32) mEq/L Anion Gap 11.7 (5-15) BUN 30 H (7-18) mg/dL Creatinine 1.5 H (0.7-1.3) mg/dL Est Cr Clr Drug Dosing 41.67 mL/min Estimated GFR (MDRD) 45 (>60) mL/min BUN/Creatinine Ratio 20.0 H (14-18) Glucose 88 (83-115) mg/dL Calcium 8.7 (8.5-10.1) mg/dL Magnesium 2.1 (1.8-2.4) mg/dl C-Reactive Protein 9.4 H* (<1.0) mg/dL NT-Pro-B Natriuret Pep 4268 H (0-450) pg/mL Med Orders - Current: Current Medications Acetaminophen (Tylenol) 650 mg PO Q4H PRN PRN Reason: Pain (Mild 1-3)/fever Hydrocodone Bitart/Acetaminophen ([place] 325-5 Mg) 1 tab PO Q4H PRN PRN Reason: Pain (moderate 4-6) Albuterol/Ipratropium (Duoneb 3.0-0.5 Mg/3 Ml) 3 ml NEB Q4H PRN PRN Reason: Shortness Of Breath/wheezing Last Admin: 10/12/17 06:18 Dose: 3 ml Amlodipine Besylate (Norvasc) 10 mg PO DAILY [facility] Last Admin: 10/13/17 08:46 Dose: 10 mg Apixaban (Eliquis) 2.5 mg PO BID [facility] Last Admin: 10/13/17 08:47 Dose: 2.5 mg Artificial Tears (Isopto Tears 0.5% Ophth Soln) 0 ml EYEBOTH TID [facility] Last Admin: 10/13/17 08:53 Dose: 1 drop Aspirin (Halfprin) 81 mg PO DAILY [facility] Last Admin: 10/13/17 08:49 Dose: 81 mg Benzonatate (Tessalon Perles) 100 mg PO TID PRN PRN Reason: Cough Bisacodyl (Dulcolax) 5 mg PO DAILY PRN PRN Reason: Constipation Cholecalciferol (Vitamin D3) 5,000 units PO DAILY [facility] Last Admin: 10/13/17 08:48 Dose: 5,000 units Docusate Sodium (Colace) 100 mg PO BID PRN PRN Reason: Constipation Famotidine (Pepcid) 20 mg PO DAILY [facility] Last Admin: 10/13/17 08:51 Dose: 20 mg Furosemide (Lasix) 40 mg PO DAILY [facility] Last Admin: 10/13/17 08:50 Dose: 40 mg Furosemide (Lasix) 20 mg PO DAILY@1400 [facility] Last Admin: 02/26/18 15:20 Dose: 20 mg Guaifenesin (Mucinex) 600 mg PO BID [facility] Last Admin: 10/13/17 08:51 Dose: 600 mg Hydralazine HCl (Apresoline) 10 mg IVPUSH Q4H PRN PRN Reason: Hypertension Last Admin: 10/12/17 21:02 Dose: 10 mg Promethazine HCl 6.25 mg/ (Sodium Chloride) 50.25 mls @ 100 mls/hr IV Q6H PRN PRN Reason: Nausea/Vomiting Lisinopril (Prinivil) 20 mg PO DAILY [facility] Last Admin: 10/13/17 08:52 Dose: 20 mg Lorazepam (Ativan) 2 mg IVPUSH Q4H PRN PRN Reason: Seizures Lorazepam (Ativan) 0.25 mg IV Q6H PRN PRN Reason: Anxiety Last Admin: 10/12/17 01:07 Dose: 0.25 mg Magnesium Sulfate (Pharmacy To Dose - Magnesium Replacement) 1 dose .XX ASDIRECTED [facility] Metoprolol Tartrate (Lopressor) 5 mg IVPUSH Q4H PRN PRN Reason: Tachycardia Ondansetron HCl (Zofran) 4 mg IV Q6H PRN PRN Reason: Nausea/Vomiting Polyethylene Glycol (Miralax) 17 gm PO DAILY PRN PRN Reason: Constipation Potassium Chloride (Pharmacy To Dose - Potassium Replacement) 1 dose .XX ASDIRECTED [facility] Saccharomyces Boulardii (Florastor) 250 mg PO BID [facility] Last Admin: 10/13/17 08:49 Dose: 250 mg Senna (Senna) 8.6 mg PO BID [facility] Last Admin: 10/13/17 08:49 Dose: 8.6 mg Senna/Docusate Sodium (Senna Plus) 1 tab PO BID PRN PRN Reason: Constipation Sertraline HCl (Zoloft) 50 mg PO DAILY [facility] Last Admin: 10/13/17 08:50 Dose: 50 mg Simvastatin (Zocor) 20 mg PO BEDTIME [facility] Last Admin: 10/12/17 21:15 Dose: 20 mg Sodium Chloride (Saline Flush) 10 ml FLUSH ASDIRECTED PRN PRN Reason: Keep Vein Open Last Admin: 10/11/17 16:10 Dose: 10 ml Temazepam (Restoril) 7.5 mg PO BEDTIME PRN PRN Reason: Sleep Discontinued Medications Bumetanide (Bumex) 0.5 mg IVPUSH ONETIME ONE Stop: 10/12/17 18:05 Last Admin: 10/12/17 18:20 Dose: 0.5 mg Famotidine (Pepcid) 20 mg IVPUSH DAILY [facility] Last Admin: 10/12/17 09:07 Dose: 20 mg Sodium Chloride (Normal Saline) 1,000 mls @ 150 mls/hr IV ASDIRECTED [facility] Last Admin: 10/11/17 16:39 Dose: 150 mls/hr Sodium Chloride (Normal Saline) 1,000 mls @ 250 mls/hr IV .BOLUS ONE Stop: 10/11/17 20:55 Last Admin: 10/11/17 18:58 Dose: Not Given Azithromycin 500 mg/ Sodium (Chloride) 250 mls @ 250 mls/hr IV ONETIME ONE Stop: 10/11/17 18:00 Last Admin: 10/11/17 17:25 Dose: 250 mls/hr Ceftriaxone Sodium 2 gm/ (Sodium Chloride) 100 mls @ 200 mls/hr IV ONETIME ONE Stop: 10/11/17 17:30 Last Admin: 10/11/17 18:56 Dose: 200 mls/hr Sodium Chloride (Normal Saline) Confirm Administered Dose 100 mls @ as directed .ROUTE .STK-MED ONE Stop: 10/11/17 17:24 Last Admin: 10/11/17 17:27 Dose: Not Given Azithromycin 500 mg/ Sodium (Chloride) 250 mls @ 250 mls/hr IV Q24H [facility] Last Admin: 10/13/17 08:43 Dose: 250 mls/hr Ceftriaxone Sodium 1 gm/ (Sodium Chloride) 100 mls @ 200 mls/hr IV Q24H [facility] Last Admin: 10/13/17 08:45 Dose: 200 mls/hr Iopamidol (Isovue-370 (76%)) 100 ml IVPUSH ONETIME ONE Stop: 10/11/17 16:38 Last Admin: 10/11/17 19:53 Dose: Not Given Morphine Sulfate (Morphine) 0.5 mg IVPUSH Q2H PRN PRN Reason: Pain (severe 7-10) Stop: 10/12/17 18:23 Last Admin: 10/12/17 17:55 Dose: 0.5 mg Pantoprazole Sodium (Protonix Iv) 40 mg .XX ONETIME ONE Stop: 10/11/17 18:25 Last Admin: 10/11/17 20:55 Dose: Not Given Pantoprazole Sodium (Protonix Iv) 40 mg IV ONETIME ONE Stop: 10/11/17 18:25 Last Admin: 10/11/17 21:53 Dose: 40 mg - Exam General: Reports: Alert, Moderate Distress HEENT: Reports: Pupils Equal, Pupils Reactive Neck: Reports: Supple, Trachea Midline Lungs: Reports: Normal Respiratory Effort, Decreased Breath Sounds, Crackles, Rales Cardiovascular: Reports: Irregular Rhythm, Murmurs GI/Abdominal Exam: Normal Bowel Sounds, Soft, Non-Tender, No Organomegaly, No Distention, No Abnormal Bruit (Male) Exam: Deferred Rectal (Males) Exam: Deferred Back Exam: Reports: Normal Inspection, Decreased Range of Motion Extremities: Normal Inspection, Normal Range of Motion, Non-Tender, No Pedal Edema, Normal Capillary Refill Skin: Reports: Warm, Dry, Intact Neurological: Reports: Other (deferred). Denies: Normal Gait Psy/Mental Status: Reports: Alert, Normal Affect, Normal Mood *Q Meaningful Use (DIS) - VTE *Q VTE Criteria *Q: - Stroke *Q Stroke Criteria *Q: - AMI *Q AMI Criteria *Q:
[2017-10-13] MEDS: Furosemide 20 MG Tab PO SCH (14:13)
[2017-10-13 17:51] VITALS: BP 141/79
== END 2017-10-13 15:32 | DRG 189 ==
LOC: JD.ED 14:22 → SUPCPDRO 14:22 → JD.ICU 17:16
PROVIDERS: ADMIT Internal Medicine; ATTEND Internal Medicine
PROC: 5A09457 Assistance with Respiratory Ventilation, 24-96 Consecutive Hours, Continuous Positive Airway Pressure (ICD-10-PCS; principal; 2017-10-11)
DX: J96.91 Respiratory failure, unspecified with hypoxia (principal); I13.0 Hypertensive heart and chronic kidney disease with heart failure and stage 1 through stage 4 chronic kidney disease, or unspecified chronic kidney disease; I69.351 Hemiplegia and hemiparesis following cerebral infarction affecting right dominant side; D69.3 Immune thrombocytopenic purpura; J98.11 Atelectasis; J90 Pleural effusion, not elsewhere classified; J96.92 Respiratory failure, unspecified with hypercapnia; R09.02 Hypoxemia; R41.0 Disorientation, unspecified; R74.8 Abnormal levels of other serum enzymes; I25.10 Atherosclerotic heart disease of native coronary artery without angina pectoris; N18.9 Chronic kidney disease, unspecified; I50.9 Heart failure, unspecified; I25.2 Old myocardial infarction; I48.91 Unspecified atrial fibrillation; E78.2 Mixed hyperlipidemia; Z86.718 Personal history of other venous thrombosis and embolism; Z79.01 Long term (current) use of anticoagulants; F32.9 Major depressive disorder, single episode, unspecified; I69.391 Dysphagia following cerebral infarction; R13.10 Dysphagia, unspecified; D64.9 Anemia, unspecified; R33.9 Retention of urine, unspecified; Z66 Do not resuscitate; Z79.82 Long term (current) use of aspirin; Z99.81 Dependence on supplemental oxygen; Z79.899 Other long term (current) drug therapy; K59.00 Constipation, unspecified; R15.9 Full incontinence of feces; R32 Unspecified urinary incontinence; E55.9 Vitamin D deficiency, unspecified; Z51.5 Encounter for palliative care
CPT/HCPCS: 36415; 36600; 51702; 71045; 71045-26; 71275; 71275-26; 80048; 80053; 81001; 82803; 83605; 83735; 83880; 84484; 85025; 85379; 85610; 85730; 86140; 87040; 87086; 87804; 93005; 94640; 94660; 94762; 96125-GN; 96360; 97110-GP; 97162-GP; 97167-GO; 97530-GP; 99285; 99285-25; A9270-GY; C9113; J0360; J0456; J0696; J2060; J2270; J7030; J7040; J7050; P9612